=== PATIENT | male | born 1950 | race Caucasian/White ===

== ENCOUNTER 2020-09-12 18:53 | Emergency (ER) | payer MEDICARE ==
[2020-09-12] MEDS ORDERED: IBUPROFEN 600 MG TAB PO STA (19:02)
[2020-09-12] MEDS ORDERED: ACETAMINOPHEN TAB 500 MG TAB PO STA (19:02)
[2020-09-12 20:00] VITALS: RESP 18
--- NOTE | 2020-09-12 20:02 | ED ---
General Adult HPI - General Chief complaint: Weakness Stated complaint: COVID exposure, fatigue Time Seen by Provider: 09/12/20 19:10 Source: patient, RN notes reviewed Mode of arrival: wheelchair Limitations: no limitations - History of Present Illness Initial comments: Patient is a pleasant [age]-year-old male presenting to the emergency Department with complaints of fatigue. Onset of symptoms was approximately 10 days ago. Patient has significant fatigue. A juares has chills and myalgias. Patient has loss of taste and smell. Patient has been exposed to several people who have been tested positive for Crohn of virus, one is hospitalized. Minimal cough. No dyspnea. - Related Data Allergies Allergy/AdvReac Type Severity Reaction Status Date / Time No Known Allergies Allergy Verified 09/12/20 21:43 Review of Systems ROS Statement: Those systems with pertinent positive or pertinent negative responses have been documented in the HPI. ROS Other: All systems not noted in ROS Statement are negative. Constitutional: Reports: fever, chills Eyes: Denies: eye pain ENT: Denies: ear pain Respiratory: Reports: cough. Denies: dyspnea Cardiovascular: Denies: chest pain Endocrine: Reports: fatigue Gastrointestinal: Denies: abdominal pain, vomiting Genitourinary: Denies: dysuria Musculoskeletal: Denies: back pain Skin: Denies: rash Neurological: Denies: weakness Past Medical History Past Medical History: Diabetes Mellitus History of Any Multi-Drug Resistant Organisms: None Reported Past Surgical History: Orthopedic Surgery Additional Past Surgical History / Comment(s): rt bka Past Psychological History: No Psychological Hx Reported Smoking Status: Never smoker Past Alcohol Use History: None Reported Past Drug Use History: None Reported General Exam Limitations: no limitations General appearance: alert, in no apparent distress Head exam: Present: normocephalic Eye exam: Present: normal appearance, PERRL Neck exam: Present: normal inspection Respiratory exam: Present: normal lung sounds bilaterally Cardiovascular Exam: Present: regular rate, normal rhythm GI/Abdominal exam: Present: soft. Absent: tenderness Extremities exam: Present: normal inspection, other (Right lower leg amput ation). Absent: pedal edema, calf tenderness Back exam: Present: normal inspection Neurological exam: Present: alert Psychiatric exam: Present: normal affect, normal mood Skin exam: Present: normal color Course Vital Signs 03/09/21 03/09/21 03/09/21 18:54 19:47 20:53 Temperature 103.1 F H 102.2 F H 101.2 F H Pulse Rate 88 78 60 Respiratory 18 18 18 Rate Blood Pressure 175/73 148/70 117/62 O2 Sat by Pulse 96 97 97 Oximetry - Reevaluation(s) Reevaluation #1: 09/12/20 20:06 Further questioned and believes his onset of symptoms was 12-14 days ago and therefore make some medication a candidate for monoclonal antibodies. EKG Findings - EKG Comments: EKG Findings:: Sinus rhythm with rate of 82. [place] 184. QRS 98. QT 392. QTC 457. Normal axis. Normal QRS. No acute ST change. Medical Decision Making - Medical Decision Making Patient reevaluated and feeling much better following Tylenol Motrin and IV fluids. Patient requesting discharge. Patient updated on results and need for follow-up as well as need to return for difficulty in breathing - Lab Data Result diagrams: 09/12/20 20:11 09/12/20 20:11 Lab Results 09/12/20 09/12/20 09/12/20 Range/Units 20:11 20:11 20:11 WBC 4.1 (3.8-10.6) k/uL RBC 6.31 H (4.30-5.90) m/uL Hgb 12.8 L (13.0-17.5) gm/dL Hct 39.9 (39.0-53.0) % MCV 63.2 L (80.0-100.0) fL MCH 20.3 L (25.0-35.0) pg MCHC 32.2 (31.0-37.0) g/dL RDW 14.2 (11.5-15.5) % Plt Count 123 L (150-450) k/uL MPV 6.9 Neutrophils % 81 % Lymphocytes % 13 % Monocytes % 5 % Eosinophils % 0 % Basophils % 0 % Neutrophils # 3.3 (1.3-7.7) k/uL Lymphocytes # 0.5 L (1.0-4.8) k/uL Monocytes # 0.2 (0-1.0) k/uL Eosinophils # 0.0 (0-0.7) k/uL Basophils # 0.0 (0-0.2) k/uL Hypochromasia Slight Poikilocytosis Slight Microcytosis Marked PT 10.0 (9.0-12.0) sec INR 0.9 (<1.2) APTT 24.5 (22.0-30.0) sec Sodium 132 L (137-145) mmol/L Potassium 4.1 (3.5-5.1) mmol/L Chloride 99 (98-107) mmol/L Carbon Dioxide 25 (22-30) mmol/L Anion Gap 8 mmol/L BUN 34 H (9-20) mg/dL Creatinine 1.49 H (0.66-1.25) mg/dL Est GFR (CKD-EPI)AfAm 55 (>60 ml/min/1.73 sqM) Est GFR (CKD-EPI)NonAf 47 (>60 ml/min/1.73 sqM) Glucose 278 H (74-99) mg/dL Plasma Lactic Acid Navarro (0.7-2.0) mmol/L Calcium 8.3 L (8.4-10.2) mg/dL Magnesium 1.7 (1.6-2.3) mg/dL Total Bilirubin 0.8 (0.2-1.3) mg/dL AST 35 (17-59) U/L ALT 17 (4-49) U/L Alkaline Phosphatase 59 (38-126) U/L Lactate Dehydrogenase 617 (313-618) U/L C-Reactive Protein 29.1 H (<10.0) mg/L Total Protein 6.3 (6.3-8.2) g/dL Albumin 3.4 L (3.5-5.0) g/dL Coronavirus (PCR) (Not Detectd) 09/12/20 09/12/20 Range/Units 20:11 20:28 WBC (3.8-10.6) k/uL RBC (4.30-5.90) m/uL Hgb (13.0-17.5) gm/dL Hct (39.0-53.0) % MCV (80.0-100.0) fL MCH (25.0-35.0) pg MCHC (31.0-37.0) g/dL RDW (11.5-15.5) % Plt Count (150-450) k/uL MPV Neutrophils % % Lymphocytes % % Monocytes % % Eosinophils % % Basophils % % Neutrophils # (1.3-7.7) k/uL Lymphocytes # (1.0-4.8) k/uL Monocytes # (0-1.0) k/uL Eosinophils # (0-0.7) k/uL Basophils # (0-0.2) k/uL Hypochromasia Poikilocytosis Microcytosis PT (9.0-12.0) sec INR (<1.2) APTT (22.0-30.0) sec Sodium (137-145) mmol/L Potassium (3.5-5.1) mmol/L Chloride (98-107) mmol/L Carbon Dioxide (22-30) mmol/L Anion Gap mmol/L BUN (9-20) mg/dL Creatinine (0.66-1.25) mg/dL Est GFR (CKD-EPI)AfAm (>60 ml/min/1.73 sqM) Est GFR (CKD-EPI)NonAf (>60 ml/min/1.73 sqM) Glucose (74-99) mg/dL Plasma Lactic Acid Navarro 1.5 (0.7-2.0) mmol/L Calcium (8.4-10.2) mg/dL Magnesium (1.6-2.3) mg/dL Total Bilirubin (0.2-1.3) mg/dL AST (17-59) U/L ALT (4-49) U/L Alkaline Phosphatase (38-126) U/L Lactate Dehydrogenase (313-618) U/L C-Reactive Protein (<10.0) mg/L Total Protein (6.3-8.2) g/dL Albumin (3.5-5.0) g/dL Coronavirus (PCR) Detected A (Not Detectd) - Radiology Data Radiology results: image reviewed (Chest x-ray with very mild lower interstitial changes) Disposition Clinical Impression: COVID-19 Disposition: HOME SELF-CARE Condition: Stable Instructions (If sedation given, give patient instructions): Upper Respiratory Infection (ED), Fever in Adults (ED) Additional Instructions: Please follow-up with primary care physician in the next day or 2 for recheck. Return for any difficulty breathing, worsening symptoms, weakness or other concerns. [id number] Tylenol or Motrin as needed for fever. [id number] vitamin C, vitamin D, and zinc. Is patient prescribed a controlled substance at d/c from ED?: No Referrals: Junior Murillo MD [Primary Care Provider] - 1-2 days Time of Disposition: 21:48
[2020-09-12 20:21] LABS: Basophils % (A) 0 %; Eosinophils % (A) 0 %; HCT 39.9 % (39.0-53.0); HGB 12.8 gm/dL (13.0-17.5); Hypochromasia Slight; Lymphocytes # (A) 0.5 k/uL (1.0-4.8); Lymphocytes % (A) 13 %; MCH 20.3 pg (25.0-35.0); MCHC 32.2 g/dL (31.0-37.0); MCV 63.2 fL (80.0-100.0); Mean Platelet Volume 6.9; Microcytosis Marked; Monocytes # (A) 0.2 k/uL (0-1.0); Monocytes % (A) 5 %; Neutrophils # (A) 3.3 k/uL (1.3-7.7); Neutrophils % (A) 81 %; Platelet Count 123 k/uL (150-450); Poikilocytosis Slight; RBC 6.31 m/uL (4.30-5.90); RDW 14.2 % (11.5-15.5); WBC 4.1 k/uL (3.8-10.6)
[2020-09-12 20:32] LABS: INR 0.9 (<1.2); Partial Thromboplastin Time 24.5 sec (22.0-30.0)
[2020-09-12 20:35] LABS: Albumin 3.4 g/dL (3.5-5.0); C Reactive Protein 29.1 mg/L (<10.0); Calcium 8.3 mg/dL (8.4-10.2); Magnesium 1.7 mg/dL (1.6-2.3); Potassium 4.1 mmol/L (3.5-5.1); Total Bilirubin 0.8 mg/dL (0.2-1.3); Total Protein 6.3 g/dL (6.3-8.2)
[2020-09-12] MEDS ORDERED: SODIUM CHLORIDE 0.9% 1,000 ML IV STA (20:52)
--- NOTE | 2020-09-12 20:55 | XR ---
EXAMINATION TYPE: XR chest 1V portable DATE OF EXAM: 09/12/2020 COMPARISON: NONE HISTORY: Weakness, SOB and COVID exposure. TECHNIQUE: Single AP portable frontal upright view of the chest is obtained. FINDINGS: There is mild chronic parenchymal changes with faint increased opacities in the lower lung s and periphery of the mid lungs. No pleural effusion or pneumothorax seen bilaterally. The cardiac s ilhouette size is within normal limits with atherosclerotic change aortic knob. Multilevel spurring i n the spine. IMPRESSION: Faint increased opacities in the lower lungs and periphery of the mid lungs consistent with covid-19 infection.
[2020-09-12 21:57] VITALS: BP 114/53; PULSE 54; TEMP 99.7
[2020-09-13 18:05] LABS: Ferritin 493.1 ng/mL (22.0-322.0)
== END 2020-09-12 22:17 | disposition home or self-care (01) ==
LOC: EC 18:53
DX: U07.1 COVID-19 (principal); E11.9 Type 2 diabetes mellitus without complications; K50.90 Crohn's disease, unspecified, without complications; Z89.511 Acquired absence of right leg below knee
CPT/HCPCS: 36415; 71045; 80053; 82728; 83605; 83615; 83735; 84145; 85025; 85610; 85730; 86140; 87040; 87635; 93005; 96360; 99284

== ENCOUNTER 2020-09-17 19:14 | Inpatient (IN) | payer MEDICARE ==
[2020-09-17] MEDS ORDERED: DEXAMETHASONE SOD PHOSPHATE 10 MG/ML 1 ML VIAL IV STA (19:39)
[2020-09-17] MEDS ORDERED: ACETAMINOPHEN TAB 500 MG TAB PO STA (19:42)
--- NOTE | 2020-09-17 19:43 | ED ---
General Adult HPI - General Chief complaint: Shortness of Breath Stated complaint: Diffculty breathing,fever COVID + Time Seen by Provider: 09/17/20 19:32 Source: patient Mode of arrival: ambulatory Limitations: no limitations - History of Present Illness Initial comments: Dictation was produced using [employer] dictation software. please excuse any gr ammatical, word or spelling errors. This patient was cared for during a federal and state declared state of emergency secondary to Covid 19 Chief Complaint: 69-year-old male past mental history of diabetes and bologna interpretation of the right lower extremity presents with shortness breath worsening appetite and generalized weakness History of Present Illness: 69-year-old male he was diagnosed with Covid 5 days ago. Patient has been symptomatic for approximately 16 days. He was seen 5 days ago where he was evaluated for Covid pneumonia. He is discharged stable medical condition. This emergency department for worsening symptoms. He denies any pain complaints. The ROS documented in this emergency department record has been reviewed and confirmed by me. Those systems with pertinent positive or negative responses have been documented in the HPI. All other systems are other negative and/or noncontributory. PHYSICAL EXAM: General Impression: Alert and oriented x3, not in acute distress, pallor HEENT: Normocephalic atraumatic, extra-ocular movements intact, pupils equal and reactive to light bilaterally, mucous membranes moist. Cardiovascular: Heart regular rate and rhythm Chest: Able to complete full sentences, no retractions, no tachypnea Abdomen: abdomen soft, non-tender, non-distended, no organomegaly Musculoskeletal: Pulses present and equal in all extremities, no peripheral edema, reduction. Right lower extremity prosthetic Motor: no focal deficits noted Neurological: CN II-XII grossly intact, no focal motor or sensory deficits noted Skin: Intact with no visualized rashes Psych: Normal affect and mood ED course: 69-year-old male presents with worsening Covid 19 symptoms. Vital signs upon arrival shows 78% on room air, temperature 101.5, rest of vital signs within acceptable limits. Patient was immediately moved to room 3. He was placed on noninvasive ventilation. Oxygen levels improved. Patient given Decadron. Patient given 1 g of Tylenol. EKG interpretation: Ventricular rate 83, normal sinus rhythm, MT interval 154, QRS 90, QTC 495. No MT prolongation, no QTC prolongation, no ST or T-wave changes noted. EKG compared to 09/12/2020 showing no changes. Overall, this EKG is unremarkable Patient is extremely elevated d-dimer. Given patient's GFR rate he is not a candidate for CT angio the chest per crown and bridge dental lab technician. Nonetheless there is suspicion of underlying pulmonary embolus, though less likely given that patient is not tachycardic and not having any pleuritic chest pain. Patient started on 1 mg/kg subcu every 12h enoxaparin dosing. Presentation most of his hypoxia is likely secondary to Covid 19. Patient reevaluated at bedside approximately 30 minutes after the initiation of noninvasive ventilation with stable oxygen's in the mid to high 90%s. He is resting comfortably and in no acute distress. Given the patient has covid 19 with hypoxic respiratory failure we would be very judicious with fluid administration. At this point less likely to be bacterial infection unlikely to be sepsis. CBC shows no leukocytosis. Coag panel is unremarkable. D-dimer is severely elevated at 32.24. Arterial blood gas shows peaches 7.49 with a pCO2 of 28 and a pO2 of 64 and 50% FiO2. Metabolic panel shows increased G4 compared to 5 days. Lactic acidosis 2.7 likely from hypoxia. Elevated inflammatory markers. Case is discussed with Dr. Batres who feels the patient is not a candidate for intensive care unit. He is supposedly with good oxygen saturations on minimal settings with the BiPAP. He is resting comfortably. Patient is outside the window for remdesivir administration. Pulmonology recommends administration of convalescent plasma. Patient be admitted to stepdown unit. Case discussed with Physician Dr. Sears Who Is Willing to Accept Patients Care. - Related Data Home Medications Medication Instructions Recorded Confirmed INSULIN ASPART (NovoLOG) [NovoLOG 4 unit SQ AC-BRKFST 09/12/20 09/17/20 (formulary)] INSULIN ASPART (NovoLOG) [NovoLOG 5 unit SQ AC-BID 09/12/20 09/17/20 (formulary)] Insulin Glargine [Lantus] 15 unit SQ HS 09/12/20 09/17/20 Allergies Allergy/AdvReac Type Severity Reaction Status Date / Time No Known Allergies Allergy Verified 09/17/20 19:46 Review of Systems ROS Statement: Those systems with pertinent positive or pertinent negative responses have been documented in the HPI. ROS Other: All systems not noted in ROS Statement are negative. Past Medical History Past Medical History: Diabetes Mellitus History of Any Multi-Drug Resistant Organisms: None Reported Past Surgical History: Orthopedic Surgery Additional Past Surgical History / Comment(s): rt bka Past Psychological History: No Psychological Hx Reported Smoking Status: Never smoker Past Alcohol Use History: None Reported Past Drug Use History: None Reported General Exam Limitations: no limitations Course Vital Signs 09/17/20 09/17/20 09/17/20 19:25 19:51 20:38 Temperature 101.5 F H 98.9 F Pulse Rate 89 90 84 Respiratory 20 22 18 Rate Blood Pressure 135/73 165/79 142/70 O2 Sat by Pulse 78 L 97 98 Oximetry Medical Decision Making - Lab Data Result diagrams: 09/17/20 19:53 09/17/20 19:53 Lab Results 09/17/20 09/17/20 09/17/20 Range/Units 19:53 19:53 19:53 WBC 4.5 (3.8-10.6) k/uL RBC 6.62 H (4.30-5.90) m/uL Hgb 13.0 (13.0-17.5) gm/dL Hct 41.5 (39.0-53.0) % MCV 62.7 L (80.0-100.0) fL MCH 19.6 L (25.0-35.0) pg MCHC 31.3 (31.0-37.0) g/dL RDW 14.5 (11.5-15.5) % Plt Count 212 (150-450) k/uL MPV 8.5 Neutrophils % 85 % Lymphocytes % 9 % Monocytes % 3 % Eosinophils % 0 % Basophils % 1 % Neutrophils # 3.8 (1.3-7.7) k/uL Lymphocytes # 0.4 L (1.0-4.8) k/uL Monocytes # 0.1 (0-1.0) k/uL Eosinophils # 0.0 (0-0.7) k/uL Basophils # 0.0 (0-0.2) k/uL Hypochromasia Moderate Poikilocytosis Slight Microcytosis Marked PT 10.1 (9.0-12.0) sec INR 0.9 (<1.2) APTT 23.8 (22.0-30.0) sec D-Dimer 32.24 H (<0.60) mg/L FEU Sample Site ABG pH (7.35-7.45) ABG pCO2 (35-45) mmHg ABG pO2 (83-108) mmHg ABG HCO3 (21-25) mmol/L ABG Total CO2 (19-24) mmol/L ABG O2 Saturation (94-97) % ABG Base Excess mmol/L Дмитрий Test FiO2 % Sodium 135 L (137-145) mmol/L Potassium 4.3 (3.5-5.1) mmol/L Chloride 100 (98-107) mmol/L Carbon Dioxide 23 (22-30) mmol/L Anion Gap 12 mmol/L BUN 56 H (9-20) mg/dL Creatinine 1.77 H (0.66-1.25) mg/dL Est GFR (CKD-EPI)AfAm 44 (>60 ml/min/1.73 sqM) Est GFR (CKD-EPI)NonAf 38 (>60 ml/min/1.73 sqM) Glucose 454 H (74-99) mg/dL Plasma Lactic Acid Navarro (0.7-2.0) mmol/L Calcium 8.7 (8.4-10.2) mg/dL Magnesium 1.8 (1.6-2.3) mg/dL Total Bilirubin 0.9 (0.2-1.3) mg/dL AST 55 (17-59) U/L ALT 23 (4-49) U/L Alkaline Phosphatase 93 (38-126) U/L Lactate Dehydrogenase 2084 H (313-618) U/L C-Reactive Protein 66.4 H (<10.0) mg/L Total Protein 6.5 (6.3-8.2) g/dL Albumin 3.3 L (3.5-5.0) g/dL 09/17/20 09/17/20 Range/Units 19:53 20:47 WBC (3.8-10.6) k/uL RBC (4.30-5.90) m/uL Hgb (13.0-17.5) gm/dL Hct (39.0-53.0) % MCV (80.0-100.0) fL MCH (25.0-35.0) pg MCHC (31.0-37.0) g/dL RDW (11.5-15.5) % Plt Count (150-450) k/uL MPV Neutrophils % % Lymphocytes % % Monocytes % % Eosinophils % % Basophils % % Neutrophils # (1.3-7.7) k/uL Lymphocytes # (1.0-4.8) k/uL Monocytes # (0-1.0) k/uL Eosinophils # (0-0.7) k/uL Basophils # (0-0.2) k/uL Hypochromasia Poikilocytosis Microcytosis PT (9.0-12.0) sec INR (<1.2) APTT (22.0-30.0) sec D-Dimer (<0.60) mg/L FEU Sample Site rbrach ABG pH 7.49 H (7.35-7.45) ABG pCO2 28 L (35-45) mmHg ABG pO2 64 L (83-108) mmHg ABG HCO3 22 (21-25) mmol/L ABG Total CO2 23 (19-24) mmol/L ABG O2 Saturation 92.4 L (94-97) % ABG Base Excess -1.7 mmol/L Дмитрий Test Yes FiO2 50 % Sodium (137-145) mmol/L Potassium (3.5-5.1) mmol/L Chloride (98-107) mmol/L Carbon Dioxide (22-30) mmol/L Anion Gap mmol/L BUN (9-20) mg/dL Creatinine (0.66-1.25) mg/dL Est GFR (CKD-EPI)AfAm (>60 ml/min/1.73 sqM) Est GFR (CKD-EPI)NonAf (>60 ml/min/1.73 sqM) Glucose (74-99) mg/dL Plasma Lactic Acid Navarro 3.7 H* (0.7-2.0) mmol/L Calcium (8.4-10.2) mg/dL Magnesium (1.6-2.3) mg/dL Total Bilirubin (0.2-1.3) mg/dL AST (17-59) U/L ALT (4-49) U/L Alkaline Phosphatase (38-126) U/L Lactate Dehydrogenase (313-618) U/L C-Reactive Protein (<10.0) mg/L Total Protein (6.3-8.2) g/dL Albumin (3.5-5.0) g/dL Critical Care Time Critical Care Time: Yes Total Critical Care Time: 33 Disposition Clinical Impression: COVID-19, Hypoxia Disposition: ADMITTED IP TO THIS [facility] Condition: Critical Referrals: Junior Murillo MD [Primary Care Provider] - 1-2 days Decision Time: 21:05
[2020-09-17] MEDS ORDERED: SODIUM CHLORIDE 0.9% 1,000 ML IV STA (20:09)
[2020-09-17 20:18] LABS: Basophils % (A) 1 %; Eosinophils % (A) 0 %; HCT 41.5 % (39.0-53.0); Hypochromasia Moderate; Lymphocytes # (A) 0.4 k/uL (1.0-4.8); Lymphocytes % (A) 9 %; MCH 19.6 pg (25.0-35.0); MCHC 31.3 g/dL (31.0-37.0); MCV 62.7 fL (80.0-100.0); Mean Platelet Volume 8.5; Microcytosis Marked; Monocytes # (A) 0.1 k/uL (0-1.0); Monocytes % (A) 3 %; Neutrophils # (A) 3.8 k/uL (1.3-7.7); Neutrophils % (A) 85 %; Platelet Count 212 k/uL (150-450); Poikilocytosis Slight; RBC 6.62 m/uL (4.30-5.90); RDW 14.5 % (11.5-15.5); WBC 4.5 k/uL (3.8-10.6)
--- NOTE | 2020-09-17 20:26 | XR ---
EXAMINATION TYPE: XR chest 1V portable DATE OF EXAM: 09/17/2020 COMPARISON: 09/12/2020 HISTORY: Fever. Short of breath. TECHNIQUE: FINDINGS: There is bilateral patchy interstitial pulmonary infiltrates. Heart size is normal. There i s no gross heart failure. There are chest leads. IMPRESSION: Increasing bilateral interstitial and airspace pneumonia compared to last exam.
[2020-09-17 20:34] LABS: Albumin 3.3 g/dL (3.5-5.0); C Reactive Protein 66.4 mg/L (<10.0); Calcium 8.7 mg/dL (8.4-10.2); Magnesium 1.8 mg/dL (1.6-2.3); Potassium 4.3 mmol/L (3.5-5.1); Total Bilirubin 0.9 mg/dL (0.2-1.3); Total Protein 6.5 g/dL (6.3-8.2)
[2020-09-17 20:40] LABS: INR 0.9 (<1.2); Partial Thromboplastin Time 23.8 sec (22.0-30.0); Prothrombin Time 10.1 sec (9.0-12.0)
[2020-09-17 20:43] LABS: D-Dimer 32.24 mg/L FEU (<0.60)
[2020-09-17 20:53] LABS: ABG Base Excess -1.7 mmol/L; ABG HCO3 22 mmol/L (21-25); ABG Oxygen Saturation 92.4 % (94-97); ABG PCO2 28 mmHg (35-45); ABG PH 7.49 (7.35-7.45); ABG PO2 64 mmHg (83-108); ABG TCO2 23 mmol/L (19-24); Allen Test Performed? Yes
[2020-09-17] MEDS ORDERED: NALOXONE 0.4 MG/ML 1 ML VIAL IV PRN (21:05)
[2020-09-17] MEDS ORDERED: ACETAMINOPHEN TAB 325 MG TAB PO PRN (21:22)
[2020-09-17 22:15] LABS: Glucose,Whole Blood 427 mg/dL (75-99)
[2020-09-17] MEDS: INSULIN DETEMIR (LEVEMIR) 100 UNIT/ML SYR SQ SCH (23:10)
[2020-09-17] MEDS: INSULIN ASPART (NovoLOG) 100 UNIT/ML VIAL SQ SCH (23:10)
[2020-09-18] MEDS: ENOXAPARIN 80 MG/0.8 ML SYRINGE SQ SCH ×2 (00:02→08:55)
[2020-09-18 00:53] LABS: Glucose,Whole Blood 353 mg/dL (75-99)
--- NOTE | 2020-09-18 02:10 | P.HPIM ---
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 he was at his baseline status of health up until two weeks ago , when he started feeling tired and sick , he reports some sore throat after sick contact with confirmed COVID patient (who is currently doing well however his mother is sick with covid in the hospital ) then started having some loose bowel movements, loss of taste sensation , and some mild cough , he denies any fever, chills, body aches, shortness fo breath, however, since his confirmed COVID test about 5 days ago, he has been using a wheelchair , due to extreme fatigue , despite no SOB, and just a mild non productive cough. he comes in today , due to worsening symptoms of fatigue for evaluation . he denies any recent travel or hospitalization . in the ED, he was found to be hypoxic with oxygen sat 78%, elevated acute inflammatory markers. he was placed on bipap and admitted for further care he currently sitting in bed, comforable and in good spirit Review of Systems Pertinent positives as noted in HPI. All other systems were reviewed and are negative Past Medical History Past Medical History: Diabetes Mellitus History of Any Multi-Drug Resistant Organisms: None Reported Past Surgical History: Orthopedic Surgery Additional Past Surgical History / Comment(s): rt bka Past Anesthesia/Blood Transfusion Reactions: No Reported Reaction Past Psychological History: No Psychological Hx Reported Smoking Status: Never smoker Past Alcohol Use History: None Reported Past Drug Use History: None Reported - Past Family History family Family Medical History: No Reported History Medications and Allergies Home Medications Medication Instructions Recorded Confirmed Type INSULIN ASPART (NovoLOG) [NovoLOG 4 unit SQ AC-BRKFST 09/12/20 09/17/20 History (formulary)] INSULIN ASPART (NovoLOG) [NovoLOG 5 unit SQ AC-BID 09/12/20 09/17/20 History (formulary)] Insulin Glargine [Lantus] 15 unit SQ HS 09/12/20 09/17/20 History Allergies Allergy/AdvReac Type Severity Reaction Status Date / Time No Known Allergies Allergy Verified 09/17/20 19:46 Physical Exam Vitals: Vital Signs Temp Pulse Pulse Resp BP BP Pulse Ox 09/18/20 00:11 95 09/17/20 21:16 80 18 130/72 100 09/17/20 21:13 99 F 79 18 154/66 100 09/17/20 20:38 98.9 F 84 18 142/70 98 09/17/20 19:51 90 22 165/79 97 09/17/20 19:25 101.5 F H 89 20 135/73 78 L Intake and Output 09/17/20 09/17/20 09/18/20 14:59 22:59 06:59 Intake Total 150 Balance 150 Intake: Oral 150 Other: Weight 87.09 kg Constitutional: No acute distress, conversant, pleasant Eyes: Anicteric sclerae, moist conjunctiva, Pupils equal round reactive to light ENMT: NC/AT Oropharynx clear, no erythema, or exudates Neck: Supple, FROM, no masses, or JVD No carotid bruits No thyromegaly Lungs: Clear to auscultation Clear to percussion Normal respiratory effort, no accessory muscle use Cardiovascular: Heart regular in rate and rhythm, No murmurs, gallops, or rubs No peripheral edema Abdominal: Soft Nontender, no guarding, rebound or rigidity Abdomen moving with respiration Normoactive bowel sounds No hepatomegaly, No splenomegaly No palpable mass No abdominal wall hernia noted Skin: Normal temperature, tone, texture, turgor No induration No subcutaneous nodules No rash, lesions No ulcers Extremities: right BKA with prosthetic limb No digital cyanosis No clubbing Pedal pulses palpabable left foot Radial pulses intact and symmetrical No calf tenderness Psychiatric: Alert and oriented to person, place and time Appropriate affect fair judgement Neuro Muscles Strength 5/5 in all 4 extremities Sensation to light touch grossly present throughout Cranial nerves II-XII grossly intact No focal sensory deficits Lymphatics: no palpable cervical or supraclavicular , or inguinal lymph nodes Results CBC & Chem 7: 09/17/20 19:53 09/17/20 19:53 Labs: Abnormal Lab Results - Last 24 Hours (Table) 09/17/20 09/17/20 09/17/20 Range/Units 19:53 19:53 19:53 RBC 6.62 H (4.30-5.90) m/uL MCV 62.7 L (80.0-100.0) fL MCH 19.6 L (25.0-35.0) pg Lymphocytes # 0.4 L (1.0-4.8) k/uL D-Dimer 32.24 H (<0.60) mg/L FEU ABG pH (7.35-7.45) ABG pCO2 (35-45) mmHg ABG pO2 (83-108) mmHg ABG O2 Saturation (94-97) % Sodium 135 L (137-145) mmol/L BUN 56 H (9-20) mg/dL Creatinine 1.77 H (0.66-1.25) mg/dL Glucose 454 H (74-99) mg/dL POC Glucose (mg/dL) (75-99) mg/dL Plasma Lactic Acid Navarro (0.7-2.0) mmol/L Lactate Dehydrogenase 2084 H (313-618) U/L Troponin I (0.000-0.034) ng/mL C-Reactive Protein 66.4 H (<10.0) mg/L Albumin 3.3 L (3.5-5.0) g/dL 09/17/20 09/17/20 09/17/20 Range/Units 19:53 20:47 21:10 RBC (4.30-5.90) m/uL MCV (80.0-100.0) fL MCH (25.0-35.0) pg Lymphocytes # (1.0-4.8) k/uL D-Dimer (<0.60) mg/L FEU ABG pH 7.49 H (7.35-7.45) ABG pCO2 28 L (35-45) mmHg ABG pO2 64 L (83-108) mmHg ABG O2 Saturation 92.4 L (94-97) % Sodium (137-145) mmol/L BUN (9-20) mg/dL Creatinine (0.66-1.25) mg/dL Glucose (74-99) mg/dL POC Glucose (mg/dL) (75-99) mg/dL Plasma Lactic Acid Navarro 3.7 H* (0.7-2.0) mmol/L Lactate Dehydrogenase (313-618) U/L Troponin I 0.146 H* (0.000-0.034) ng/mL C-Reactive Protein (<10.0) mg/L Albumin (3.5-5.0) g/dL 09/17/20 09/17/20 09/18/20 Range/Units 22:12 22:58 00:52 RBC (4.30-5.90) m/uL MCV (80.0-100.0) fL MCH (25.0-35.0) pg Lymphocytes # (1.0-4.8) k/uL D-Dimer (<0.60) mg/L FEU ABG pH (7.35-7.45) ABG pCO2 (35-45) mmHg ABG pO2 (83-108) mmHg ABG O2 Saturation (94-97) % Sodium (137-145) mmol/L BUN (9-20) mg/dL Creatinine (0.66-1.25) mg/dL Glucose (74-99) mg/dL POC Glucose (mg/dL) 427 H 353 H (75-99) mg/dL Plasma Lactic Acid Navarro 2.1 H* (0.7-2.0) mmol/L Lactate Dehydrogenase (313-618) U/L Troponin I (0.000-0.034) ng/mL C-Reactive Protein (<10.0) mg/L Albumin (3.5-5.0) g/dL Thrombosis Risk Factor Assmnt - Choose All That Apply Any of the Below Risk Factors Present?: No Other Risk Factors: Yes Each Risk Factor Represents 2 Points: Age 61-74 years Other congenital or acquired thrombophilia - If yes, enter type in comment: No Thrombosis Risk Factor Assessment Total Risk Factor Score: 2 Thrombosis Risk Factor Assessment Level: Low Risk Assessment and Plan Assessment: acute hypoxiic respiratory failure COIVD pneumonitis AARON DM insulin dependant , hyperglycemia plan supplemental oxygen as needed dexamethasone 6 mg daily for 10 days convalescent plasma pulmonary consult pain and fever control with tylenol IVF hydration gentle basal insulin and insulin sliding scale monitor renal function lovenox full anticoagulation elevated inflammatory markers elevated trops , no chest pain ,most likely 2/2 COVID EKG no acute ST changes CODE STATUS:full code DVT prophylaxis: on lovenox Discussed with: Patient, ER, RN Anticipated length of stay > than [address]: home A total of 75 minutes was spent on the care of this complex patient more than 50% of the time was spent in counseling and care coordination.
[2020-09-18 06:03] LABS: Glucose,Whole Blood 314 mg/dL (75-99)
[2020-09-18] MEDS: INSULIN ASPART (NovoLOG) 100 UNIT/ML VIAL SQ SCH ×4 (06:46→20:56)
[2020-09-18] MEDS: dexAMETHasone 2 MG TAB PO SCH (08:55)
--- NOTE | 2020-09-18 09:12 | P.PN ---
Subjective Progress Note Date: 09/18/20 No new complaints today. Patient has two pulse oximeters, with one reading 98%, the other reading 74%; he is in NAD, not dyspneic. Objective - Vital Signs Vital signs: Vital Signs Temp 97.8 F 09/18/20 08:24 Pulse 74 09/18/20 08:24 Resp 18 09/18/20 08:24 BP 157/88 09/18/20 08:24 Pulse Ox 93 L 09/18/20 08:24 Intake & Output 09/17/20 09/18/20 09/18/20 18:59 06:59 18:59 Intake Total 150 794 Output Total 200 Balance -50 794 Weight 87 kg Intake: Oral 150 600 Blood Product 0 194 Ffp Pher Conval High [address] Unit [id number] Output: Urine 200 - Exam Gen: awake, alert HEENT: normocephalic, atraumatic, good hearing acuity, moist mucous membranes Resp: good air exchange, breathing comfortably with no accessory muscle use, bilateral crackles in the posterior bases abdomen test CVS: good distal perfusion x 4,, regular rate and rhythm without murmurs GI: soft, NTTP, ND, normal breath sounds : no SPT, no CVAT, triana catheter not present MSK: no pitting edema, no clubbing Neuro: non-focal, moving all extremities Psych: cooperative, euthymic mood - Labs CBC & Chem 7: 09/17/20 19:53 09/17/20 19:53 Labs: Abnormal Lab Results - Last 24 Hours (Table) 09/17/20 09/17/20 09/17/20 Range/Units 19:53 19:53 19:53 RBC 6.62 H (4.30-5.90) m/uL MCV 62.7 L (80.0-100.0) fL MCH 19.6 L (25.0-35.0) pg Lymphocytes # 0.4 L (1.0-4.8) k/uL D-Dimer 32.24 H (<0.60) mg/L FEU ABG pH (7.35-7.45) ABG pCO2 (35-45) mmHg ABG pO2 (83-108) mmHg ABG O2 Saturation (94-97) % Sodium 135 L (137-145) mmol/L BUN 56 H (9-20) mg/dL Creatinine 1.77 H (0.66-1.25) mg/dL Glucose 454 H (74-99) mg/dL POC Glucose (mg/dL) (75-99) mg/dL Plasma Lactic Acid Navarro (0.7-2.0) mmol/L Lactate Dehydrogenase 2084 H (313-618) U/L Troponin I (0.000-0.034) ng/mL C-Reactive Protein 66.4 H (<10.0) mg/L Albumin 3.3 L (3.5-5.0) g/dL 09/17/20 09/17/20 09/17/20 Range/Units 19:53 20:47 21:10 RBC (4.30-5.90) m/uL MCV (80.0-100.0) fL MCH (25.0-35.0) pg Lymphocytes # (1.0-4.8) k/uL D-Dimer (<0.60) mg/L FEU ABG pH 7.49 H (7.35-7.45) ABG pCO2 28 L (35-45) mmHg ABG pO2 64 L (83-108) mmHg ABG O2 Saturation 92.4 L (94-97) % Sodium (137-145) mmol/L BUN (9-20) mg/dL Creatinine (0.66-1.25) mg/dL Glucose (74-99) mg/dL POC Glucose (mg/dL) (75-99) mg/dL Plasma Lactic Acid Navarro 3.7 H* (0.7-2.0) mmol/L Lactate Dehydrogenase (313-618) U/L Troponin I 0.146 H* (0.000-0.034) ng/mL C-Reactive Protein (<10.0) mg/L Albumin (3.5-5.0) g/dL 09/17/20 09/17/20 09/18/20 Range/Units 22:12 22:58 00:52 RBC (4.30-5.90) m/uL MCV (80.0-100.0) fL MCH (25.0-35.0) pg Lymphocytes # (1.0-4.8) k/uL D-Dimer (<0.60) mg/L FEU ABG pH (7.35-7.45) ABG pCO2 (35-45) mmHg ABG pO2 (83-108) mmHg ABG O2 Saturation (94-97) % Sodium (137-145) mmol/L BUN (9-20) mg/dL Creatinine (0.66-1.25) mg/dL Glucose (74-99) mg/dL POC Glucose (mg/dL) 427 H 353 H (75-99) mg/dL Plasma Lactic Acid Navarro 2.1 H* (0.7-2.0) mmol/L Lactate Dehydrogenase (313-618) U/L Troponin I (0.000-0.034) ng/mL C-Reactive Protein (<10.0) mg/L Albumin (3.5-5.0) g/dL 09/18/20 09/18/20 Range/Units 02:19 06:01 RBC (4.30-5.90) m/uL MCV (80.0-100.0) fL MCH (25.0-35.0) pg Lymphocytes # (1.0-4.8) k/uL D-Dimer (<0.60) mg/L FEU ABG pH (7.35-7.45) ABG pCO2 (35-45) mmHg ABG pO2 (83-108) mmHg ABG O2 Saturation (94-97) % Sodium (137-145) mmol/L BUN (9-20) mg/dL Creatinine (0.66-1.25) mg/dL Glucose (74-99) mg/dL POC Glucose (mg/dL) 314 H (75-99) mg/dL Plasma Lactic Acid Navarro 2.5 H* (0.7-2.0) mmol/L Lactate Dehydrogenase (313-618) U/L Troponin I (0.000-0.034) ng/mL C-Reactive Protein (<10.0) mg/L Albumin (3.5-5.0) g/dL Assessment and Plan Assessment: acute hypoxiic respiratory failure COIVD pneumonitis AARON DM insulin dependant , hyperglycemia plan supplemental oxygen as needed dexamethasone 6 mg daily for 10 days convalescent plasma pulmonary consult pain and fever control with tylenol IVF hydration gentle basal insulin and insulin sliding scale monitor renal function lovenox full anticoagulation elevated inflammatory markers elevated trops , no chest pain, most likely 2/2 COVID EKG no acute ST changes CODE STATUS:full code DVT prophylaxis: on lovenox Discussed with: Patient, ER, RN Anticipated length of stay > than [address]: home
[2020-09-18 10:05] LABS: Ferritin 1679.6 ng/mL (22.0-322.0)
[2020-09-18 12:01] LABS: Glucose,Whole Blood 308 mg/dL (75-99)
[2020-09-18 14:35] VITALS: BMI 24.6
--- NOTE | 2020-09-18 14:49 | P.CNPUL ---
History of Present Illness Consult date: 09/18/20 Requesting physician: Edgar Sears Reason for consult: dyspnea, cough, hypoxemia, pneumonia, abnormal CXR/CT Chief complaint: COVID 19 pneumonia History of present illness: 69-year-old male, who presented to the emergency department, on 09/17/2020. The patient apparently came in with complaints of shortness of breath, fever, and recently being tested positive for COVID 19. The patient hasn't been feeling well for a couple weeks now, and about 5 or 6 days ago, was tested here at this hospital and was positive for coronavirus. The patient was not having major issues at that time, and therefore was discharged home. More recently, over the last couple of days, he states that he is becoming more more symptomatic. He had muscle aches, poor appetite, loss of taste, just feeling fatigued, and shortness of breath on exertion. No fever or chills. He wasn't coughing up any phlegm. His cough is mostly nonproductive. He denied any chest pain or chest discomfort. There is no nausea, vomiting, diarrhea, or abdominal pain. A chest x-ray was done and showed bilateral infiltrates, and, his white count was 4.5, hemoglobin 13, hematocrit 41.5, and platelet count 312,000. D-dimer was 32.24, PaO2 was 64, with a PaCO2 of 28 and a pH is 7.49. Sodium was 135, potassium 4.3, chlorides 100, CO2 23, anion gap 12, BUN 56, and creatinine 1.77. Lactic acid was 2.1, LDH was 2084, and C-reactive protein was 66.4. Pro-calcitonin was 0.74. The patient is a lifelong nonsmoker, and his only major medical problem was that of diabetes. He is status post right BKA. Review of Systems REVIEW OF SYSTEMS: CONSTITUTIONAL: Fatigue and weakness. NEUROLOGIC: [ Negative.] HEENT: [ Negative.] CARDIAC: [Negative.] PULMONARY: Shortness of breath on exertion and dry nonproductive cough. GI: Decreased appetite. : [Negative.] RHEUMATOLOGIC: Muscle and joint soreness. IMMUNOLOGIC: [ Negative.] ENDOCRINE: [Negative. ] DERMATOLOGIC: [Negative.] Past Medical History Past Medical History: Diabetes Mellitus History of Any Multi-Drug Resistant Organisms: None Reported Past Surgical History: Orthopedic Surgery Additional Past Surgical History / Comment(s): rt bka Past Anesthesia/Blood Transfusion Reactions: No Reported Reaction Past Psychological History: No Psychological Hx Reported Smoking Status: Never smoker Past Alcohol Use History: None Reported Past Drug Use History: None Reported - Past Family History family Family Medical History: No Reported History Medications and Allergies Home Medications Medication Instructions Recorded Confirmed Type INSULIN ASPART (NovoLOG) [NovoLOG 4 unit SQ AC-BRKFST 09/12/20 09/17/20 History (formulary)] INSULIN ASPART (NovoLOG) [NovoLOG 5 unit SQ AC-BID 09/12/20 09/17/20 History (formulary)] Insulin Glargine [Lantus] 15 unit SQ HS 09/12/20 09/17/20 History Allergies Allergy/AdvReac Type Severity Reaction Status Date / Time No Known Allergies Allergy Verified 09/17/20 19:46 Physical Exam Osteopathic Statement: *. No significant issues noted on an osteopathic structural exam other than those noted in the History and Physical/Consult. Vitals: Vital Signs Temp Pulse Pulse Resp BP BP Pulse Ox 09/18/20 12:05 67 18 154/83 91 L 09/18/20 08:24 97.8 F 74 18 157/88 93 L 09/18/20 07:14 97.9 F 75 18 153/78 94 L 09/18/20 06:44 97.8 F 73 18 159/85 92 L 09/18/20 06:34 97.6 F 71 18 152/82 94 L 09/18/20 04:29 93 L 09/18/20 04:00 69 18 150/82 93 L 09/18/20 02:00 76 18 09/18/20 00:11 95 09/18/20 00:00 98.5 F 76 18 152/81 95 09/17/20 21:16 80 18 130/72 100 09/17/20 21:13 99 F 79 18 154/66 100 09/17/20 20:38 98.9 F 84 18 142/70 98 09/17/20 19:51 90 22 165/79 97 09/17/20 19:25 101.5 F H 89 20 135/73 78 L Intake and Output 09/17/20 09/18/20 09/18/20 22:59 06:59 14:59 Intake Total 150 0 794 Output Total 200 Balance 150 -200 794 Intake: Oral 150 600 Blood Product 0 194 Ffp Pher Conval High [address] Unit [id number] Output: Urine 200 Other: # Voids 1 # Bowel Movements 1 Weight 87.09 kg 87 kg 87 kg No acute distress, oriented 3. Nasal O2 in place at 13 L/m. Patient without apparent respiratory distress, audible wheezing, use of accessory muscles, or conversational dyspnea. HEENT examination is grossly unremarkable. Mucous membranes are moist. No oral lesions. Nasal O2 noted. Neck supple. Full range of motion. No adenopathy thyromegaly or neck vein distention. Cardiovascular examination reveals regular rhythm rate. S1-S2 normal. No S3 or S4. No discernible murmur noted. Heart rate 67 bpm. Lungs reveal bilateral expiratory rhonchi and some minimal basilar crackles. No wheezes. Breath sounds equal bilaterally. Abdomen soft bowel sounds are heard. No masses or tenderness. Extremities are intact. No cyanosis clubbing or edema. Right below the knee amputation. Skin is without rash or lesion. Neurologic examination is brief but nonfocal. Results - Laboratory Findings CBC and BMP: 09/17/20 19:53 09/17/20 19:53 ABG ABG pH 7.49 (7.35-7.45) H 09/17/20 20:47 ABG pCO2 28 mmHg (35-45) L 09/17/20 20:47 ABG pO2 64 mmHg (83-108) L 09/17/20 20:47 ABG O2 Saturation 92.4 % (94-97) L 09/17/20 20:47 PT/INR, D-dimer PT 10.1 sec (9.0-12.0) 09/17/20 19:53 INR 0.9 (<1.2) 09/17/20 19:53 D-Dimer 32.24 mg/L FEU (<0.60) H 09/17/20 19:53 Abnormal lab findings: Abnormal Labs 09/17/20 09/17/20 09/17/20 19:53 19:53 19:53 RBC 6.62 H MCV 62.7 L MCH 19.6 L Lymphocytes # 0.4 L D-Dimer 32.24 H ABG pH ABG pCO2 ABG pO2 ABG O2 Saturation Sodium 135 L BUN 56 H Creatinine 1.77 H Glucose 454 H POC Glucose (mg/dL) Plasma Lactic Acid Navarro Ferritin 1679.6 H Lactate Dehydrogenase 2084 H Troponin I C-Reactive Protein 66.4 H Albumin 3.3 L Procalcitonin 09/17/20 09/17/20 09/17/20 19:53 19:53 20:47 RBC MCV MCH Lymphocytes # D-Dimer ABG pH 7.49 H ABG pCO2 28 L ABG pO2 64 L ABG O2 Saturation 92.4 L Sodium BUN Creatinine Glucose POC Glucose (mg/dL) Plasma Lactic Acid Navarro 3.7 H* Ferritin Lactate Dehydrogenase Troponin I C-Reactive Protein Albumin Procalcitonin 0.74 H 09/17/20 09/17/20 09/17/20 21:10 22:12 22:58 RBC MCV MCH Lymphocytes # D-Dimer ABG pH ABG pCO2 ABG pO2 ABG O2 Saturation Sodium BUN Creatinine Glucose POC Glucose (mg/dL) 427 H Plasma Lactic Acid Navarro 2.1 H* Ferritin Lactate Dehydrogenase Troponin I 0.146 H* C-Reactive Protein Albumin Procalcitonin 09/18/20 09/18/20 09/18/20 00:52 02:19 06:01 RBC MCV MCH Lymphocytes # D-Dimer ABG pH ABG pCO2 ABG pO2 ABG O2 Saturation Sodium BUN Creatinine Glucose POC Glucose (mg/dL) 353 H 314 H Plasma Lactic Acid Navarro 2.5 H* Ferritin Lactate Dehydrogenase Troponin I C-Reactive Protein Albumin Procalcitonin 09/18/20 11:58 RBC MCV MCH Lymphocytes # D-Dimer ABG pH ABG pCO2 ABG pO2 ABG O2 Saturation Sodium BUN Creatinine Glucose POC Glucose (mg/dL) 308 H Plasma Lactic Acid Navarro Ferritin Lactate Dehydrogenase Troponin I C-Reactive Protein Albumin Procalcitonin - Diagnostic Findings Chest x-ray: image reviewed Assessment and Plan Assessment: Acute hypoxemic respiratory failure secondary to COVID 19 pneumonia. History of diabetes mellitus. Right below the knee amputation. Lifelong nonsmoker. Plan: Plan dated 09/18/2020. The patient actually looks pretty good. He is beyond the window for remdesivir, CP and tocilizumab. The patient is given an albuterol inhaler, vitamin C 1000 mg daily, vitamin D3, 5000 IUs daily, Decadron 6 mg a day, and zinc 220 mg daily. In addition, the patient is Lovenox, 40 mg subcu twice a day. Additional recommendations and suggestions are forthcoming. We'll continue to follow the patient very closely make recommendations were appropriate. All his labs, chest x-rays, and medications are reviewed. We did discuss the patient at the bedside with the nurse. Additional recommendations and suggestions are forthcoming. Time with Patient: Greater than 30
[2020-09-18 17:06] LABS: Glucose,Whole Blood 311 mg/dL (75-99)
[2020-09-18 20:43] LABS: Glucose,Whole Blood 272 mg/dL (75-99)
[2020-09-18] MEDS: ENOXAPARIN 40 MG/0.4 ML SYRINGE SQ SCH (20:56)
[2020-09-18] MEDS: INSULIN DETEMIR (LEVEMIR) 100 UNIT/ML SYR SQ SCH (20:56)
[2020-09-19 06:46] LABS: Glucose,Whole Blood 150 mg/dL (75-99)
[2020-09-19] MEDS: INSULIN ASPART (NovoLOG) 100 UNIT/ML VIAL SQ SCH ×4 (07:03→21:11)
[2020-09-19 07:04] LABS: HCT 37.5 % (39.0-53.0); HGB 11.9 gm/dL (13.0-17.5); Hypochromasia Slight; MCH 19.6 pg (25.0-35.0); MCHC 31.7 g/dL (31.0-37.0); MCV 61.8 fL (80.0-100.0); Mean Platelet Volume 6.7; Microcytosis Marked; Platelet Count 181 k/uL (150-450); Poikilocytosis Slight; RBC 6.07 m/uL (4.30-5.90); RDW 14.3 % (11.5-15.5); WBC 5.1 k/uL (3.8-10.6)
[2020-09-19 07:16] LABS: Calcium 8.6 mg/dL (8.4-10.2); Potassium 3.7 mmol/L (3.5-5.1)
[2020-09-19] MEDS: CHOLECALCIFEROL 25 MCG (1000 IU) TABLET PO SCH (08:51)
[2020-09-19] MEDS: dexAMETHasone 2 MG TAB PO SCH (08:51)
[2020-09-19] MEDS: ENOXAPARIN 40 MG/0.4 ML SYRINGE SQ SCH ×2 (08:52→19:56)
[2020-09-19] MEDS: ZINC SULFATE 220 MG CAP PO SCH (08:52)
[2020-09-19] MEDS: ASCORBIC ACID 500 MG TAB PO SCH (08:52)
--- NOTE | 2020-09-19 11:35 | P.PN ---
Subjective Progress Note Date: 09/19/20 Pt reports overall improvement in symptoms. Oxygen requirement down to 12L NC with 93% saturation. Kidney function improving. Objective - Vital Signs Vital signs: Vital Signs Temp 97.7 F 09/19/20 08:00 Pulse 77 09/19/20 08:00 Resp 18 09/19/20 08:00 BP 116/68 09/19/20 08:00 Pulse Ox 92 L 09/19/20 08:00 Intake & Output 09/18/20 09/19/20 09/19/20 18:59 06:59 18:59 Intake Total 1034 660 240 Balance 1034 660 240 Weight 87 kg 91 kg Intake: Oral 840 660 240 Blood Product 194 Ffp Pher Conval High [address] [id number] Other: # Voids 2 # Bowel Movements 1 - Exam Gen: awake, alert HEENT: normocephalic, atraumatic, good hearing acuity, moist mucous membranes Resp: good air exchange, breathing comfortably with no accessory muscle use, bilateral crackles in the posterior bases abdomen test CVS: good distal perfusion x 4,, regular rate and rhythm without murmurs GI: soft, NTTP, ND, normal breath sounds : no SPT, no CVAT, triana catheter not present MSK: no pitting edema, no clubbing Neuro: non-focal, moving all extremities Psych: cooperative, euthymic mood - Labs CBC & Chem 7: 09/19/20 06:27 09/19/20 06:27 Labs: Abnormal Lab Results - Last 24 Hours (Table) 09/18/20 09/18/20 09/18/20 Range/Units 11:58 17:05 20:41 RBC (4.30-5.90) m/uL Hgb (13.0-17.5) gm/dL Hct (39.0-53.0) % MCV (80.0-100.0) fL MCH (25.0-35.0) pg BUN (9-20) mg/dL Creatinine (0.66-1.25) mg/dL Glucose (74-99) mg/dL POC Glucose (mg/dL) 308 H 311 H 272 H (75-99) mg/dL 09/19/20 09/19/20 09/19/20 Range/Units 06:27 06:27 06:45 RBC 6.07 H (4.30-5.90) m/uL Hgb 11.9 L (13.0-17.5) gm/dL Hct 37.5 L (39.0-53.0) % MCV 61.8 L (80.0-100.0) fL MCH 19.6 L (25.0-35.0) pg BUN 60 H (9-20) mg/dL Creatinine 1.60 H (0.66-1.25) mg/dL Glucose 147 H (74-99) mg/dL POC Glucose (mg/dL) 150 H (75-99) mg/dL Microbiology - Last 24 Hours (Table) 09/17/20 19:45 Blood Culture - Preliminary Blood No Growth after 24 hours 09/17/20 19:53 Blood Culture - Preliminary Blood No Growth after 24 hours Assessment and Plan Assessment: acute hypoxiic respiratory failure COIVD pneumonitis AARON DM insulin dependant , hyperglycemia plan supplemental oxygen as needed dexamethasone 6 mg daily for 10 days s/p convalescent plasma pulmonary consult pain and fever control with tylenol IVF hydration gentle basal insulin and insulin sliding scale monitor renal function lovenox full anticoagulation elevated inflammatory markers elevated trops , no chest pain, most likely 2/2 COVID EKG no acute ST changes CODE STATUS:full code DVT prophylaxis: on lovenox Discussed with: Patient, ER, RN Anticipated length of stay > than [address]: home
[2020-09-19 12:05] LABS: Glucose,Whole Blood 170 mg/dL (75-99)
--- NOTE | 2020-09-19 15:13 | P.PN ---
Subjective Progress Note Date: 09/19/20 Principal diagnosis: COVID 19 pneumonia 69-year-old male, who presented to the emergency department, on 09/17/2020. The patient apparently came in with complaints of shortness of breath, fever, and recently being tested positive for COVID 19. The patient hasn't been feeling we ll for a couple weeks now, and about 5 or 6 days ago, was tested here at this hospital and was positive for coronavirus. The patient was not having major issues at that time, and therefore was discharged home. More recently, over the last couple of days, he states that he is becoming more more symptomatic. He had muscle aches, poor appetite, loss of taste, just feeling fatigued, and shortness of breath on exertion. No fever or chills. He wasn't coughing up any phlegm. His cough is mostly nonproductive. He denied any chest pain or chest discomfort. There is no nausea, vomiting, diarrhea, or abdominal pain. A chest x-ray was done and showed bilateral infiltrates, and, his white count was 4.5, hemoglobin 13, hematocrit 41.5, and platelet count 312,000. D-dimer was 32.24, PaO2 was 64, with a PaCO2 of 28 and a pH is 7.49. Sodium was 135, potassium 4.3, chlorides 100, CO2 23, anion gap 12, BUN 56, and creatinine 1.77. Lactic acid was 2.1, LDH was 2084, and C-reactive protein was 66.4. Pro-calcitonin was 0.74. The patient is a lifelong nonsmoker, and his only major medical problem was that of diabetes. He is status post right BKA. Progress note dated 09/19/2020. This is a 69-year-old male that we saw in consultation yesterday. He presented to the emergency department on September 17, complaining of shortness of breath, fever, and recently been tested positive for COVID 19. Currently, the patient's on O2 at about 7-8 L/m high flow. He is feeling a bit better today. To look at the patient, he appears in no distress. He's not having any conversational dyspnea, audible wheezing, use of accessory muscles. He looks very comfortable. I told him we could not discharge him from the hospital till as oxygen requirements are down below 5 L/m. His only other medical problem is that of diabetes. He is a lifelong nonsmoker. White count is 5.1, hemoglobin 11.9, hematocrit 37.5, platelet count 181,000, sodium 137, potassium 3.7, chloride 107, CO2 24, anion gap 6, BUN 60, and creatinine 1.60. Objective - Vital Signs Vital signs: Vital Signs Temp 97.7 F 09/19/20 08:00 Pulse 79 09/19/20 12:00 Resp 16 09/19/20 14:00 BP 148/81 09/19/20 12:00 Pulse Ox 90 L 09/19/20 12:00 Intake & Output 09/18/20 09/19/20 09/19/20 18:59 06:59 18:59 Intake Total 1034 660 240 Balance 1034 660 240 Weight 87 kg 91 kg Intake: Oral 840 660 240 Blood Product 194 Ffp Pher Conval High [address] Unit [id number] Other: # Voids 2 # Bowel Movements 1 - Exam No acute distress, oriented 3. Nasal O2 in place at 10 L/m. Patient without apparent respiratory distress, audible wheezing, use of accessory muscles, or conversational dyspnea. HEENT examination is grossly unremarkable. Mucous membranes are moist. No oral lesions. Nasal O2 noted. Neck supple. Full range of motion. No adenopathy thyromegaly or neck vein distention. Cardiovascular examination reveals regular rhythm rate. S1-S2 normal. No S3 or S4. No discernible murmur noted. Heart rate 79 bpm. Lungs reveal bilateral expiratory rhonchi and some minimal basilar crackles. No wheezes. Breath sounds equal bilaterally. Exam is unchanged. Abdomen soft bowel sounds are heard. No masses or tenderness. Extremities are intact. No cyanosis clubbing or edema. Right below the knee amputation. Skin is without rash or lesion. Neurologic examination is brief but nonfocal. - Labs CBC & Chem 7: 09/19/20 06:27 09/19/20 06:27 Labs: Abnormal Lab Results - Last 24 Hours (Table) 09/18/20 09/18/20 09/19/20 Range/Units 17:05 20:41 06:27 RBC 6.07 H (4.30-5.90) m/uL Hgb 11.9 L (13.0-17.5) gm/dL Hct 37.5 L (39.0-53.0) % MCV 61.8 L (80.0-100.0) fL MCH 19.6 L (25.0-35.0) pg BUN (9-20) mg/dL Creatinine (0.66-1.25) mg/dL Glucose (74-99) mg/dL POC Glucose (mg/dL) 311 H 272 H (75-99) mg/dL 09/19/20 09/19/20 09/19/20 Range/Units 06:27 06:45 11:56 RBC (4.30-5.90) m/uL Hgb (13.0-17.5) gm/dL Hct (39.0-53.0) % MCV (80.0-100.0) fL MCH (25.0-35.0) pg BUN 60 H (9-20) mg/dL Creatinine 1.60 H (0.66-1.25) mg/dL Glucose 147 H (74-99) mg/dL POC Glucose (mg/dL) 150 H 170 H (75-99) mg/dL Microbiology - Last 24 Hours (Table) 09/17/20 19:45 Blood Culture - Preliminary Blood No Growth after 24 hours 09/17/20 19:53 Blood Culture - Preliminary Blood No Growth after 24 hours Assessment and Plan Assessment: Acute hypoxemic respiratory failure secondary to COVID 19 pneumonia. History of diabetes mellitus. Right below the knee amputation. Lifelong nonsmoker. Plan: Plan dated 09/19/2020. The patient clinically looks good. His oxygen requirements have come down a bit. He is on appropriate medications. He was really be on the window for REM, TOCI, and convalescent plasma. The patient is on Decadron, vitamin C, vitamin D3, zinc, and an albuterol inhaler. The patient is also on Lovenox, 40 mg subcu twice a day. His only d-dimer was elevated at 32.24. Additional recommendations and suggestions are forthcoming. We'll continue to follow along and make recommendations were appropriate. Prognosis is guarded. Time with Patient: Less than 30
[2020-09-19 16:57] LABS: Glucose,Whole Blood 299 mg/dL (75-99)
[2020-09-19 20:18] LABS: Glucose,Whole Blood 340 mg/dL (75-99)
[2020-09-19] MEDS: INSULIN DETEMIR (LEVEMIR) 100 UNIT/ML SYR SQ SCH (21:10)
[2020-09-20 06:12] LABS: Glucose,Whole Blood 115 mg/dL (75-99)
[2020-09-20] MEDS: INSULIN ASPART (NovoLOG) 100 UNIT/ML VIAL SQ SCH ×4 (06:30→21:33)
[2020-09-20 07:52] LABS: Basophils % (A) 0 %; Eosinophils % (A) 0 %; HCT 37.3 % (39.0-53.0); HGB 11.8 gm/dL (13.0-17.5); Hypochromasia Slight; Lymphocytes # (A) 0.3 k/uL (1.0-4.8); Lymphocytes % (A) 6 %; MCH 19.5 pg (25.0-35.0); MCHC 31.7 g/dL (31.0-37.0); MCV 61.7 fL (80.0-100.0); Mean Platelet Volume 6.7; Microcytosis Marked; Monocytes # (A) 0.1 k/uL (0-1.0); Monocytes % (A) 2 %; Neutrophils % (A) 90 %; Platelet Count 149 k/uL (150-450); Poikilocytosis Slight; RBC 6.05 m/uL (4.30-5.90); RDW 14.2 % (11.5-15.5); WBC 4.4 k/uL (3.8-10.6)
[2020-09-20 08:07] LABS: Calcium 8.6 mg/dL (8.4-10.2); Magnesium 1.8 mg/dL (1.6-2.3); Potassium 3.8 mmol/L (3.5-5.1)
[2020-09-20] MEDS: ZINC SULFATE 220 MG CAP PO SCH (09:27)
[2020-09-20] MEDS: CHOLECALCIFEROL 25 MCG (1000 IU) TABLET PO SCH (09:27)
[2020-09-20] MEDS: ASCORBIC ACID 500 MG TAB PO SCH (09:27)
[2020-09-20] MEDS: dexAMETHasone 2 MG TAB PO SCH (09:27)
[2020-09-20] MEDS: ENOXAPARIN 40 MG/0.4 ML SYRINGE SQ SCH ×2 (09:28→21:34)
--- NOTE | 2020-09-20 10:27 | P.PN ---
<Paul Vieyra - Last Filed: 09/20/20 09:26> Subjective Progress Note Date: 09/20/20 Principal diagnosis: Covid Pneumonitis Hospital course: Patient is a 69-year-old male with a past medical history of type 2 insulin- dependent diabetes mellitus and right BKA. Patient was diagnosed with Covid 19 virus infection on 09/12/20 and continued to have increasing shortness of breath and fatigue accompanied by muscle aches, poor appetite, and loss of taste r esulting in him coming to the hospital for evalution.Upon arrival he was found to be in acute respiratory failure with hypoxia with SPO2 78% on room air requiring BIPAP with supplemental oxygenation. Lab findings revealed an elevated d-dimer of 32.24; respiratory alkalosis with pCO2 of 28, PaO2 of 64, and pH of 7.49; elevated lactate of 2.1; ferritin of 1679.6; LDH 2084; troponin 0.146; CRP is 66.4; a KCI with BUN of 56, creatinine 1.77, and GFR of 38; and pro-calcitonin of 0.74. As a result, Mr. Stockton was admitted to the hospital on 09/17/20 for acute respiratory failure with hypoxia resulting from Covid 19 virus infection with pneumonitis. Upon admission and chest x-ray was positive for bilateral multifocal pneumonia. His EKG revealed normal sinus rhythm at 83 bpm with a prolonged QT/QTC of 422/495 ms, no T-wave or ST abnormalities noted. Patient has been on Decadron 6 mg daily with today being day 4 of 10. Patient also being treated with vitamin C, vitamin D, and zinc with DVT prophylaxis being provided with Lovenox 40 mg twice daily. Patient continues to be in hypoxic respiratory failure with oxygen requirement 15 L via high flow nasal cannula at this time. Pulmonology is following. Physical exam: Patient was seen and fully evaluated at the bedside. He was sitting up in bed eating his breakfast. Patient reports that he is feeling a little better when compared to yesterday. He states that when he lies down he continues to have an increased difficulty with breathing, but reported improvement of generalized body aches, a slightly increased appetite and return of taste, and denies feeling any chest pain, palpitations, abdominal pain/discomfort, nausea or vomiting. Patient continues to have good oral intake and is approximately 60- 75% of his breakfast. Patient's oxygen requirements have increased from 10 L to 15 L over the past 24 hours. Patient is currently on 15 L high flow nasal cannula with SpO2 of 91-92%, vital signs otherwise stable. Morning labs completed with CBC revealing patient to have thrombocytopenia with platelet count of 149,000 mild macrocytic microchromic anemia with hemoglobin 11.8, hematocrit 37.3, MCV 61.7, MCH 19.5, and MCHC of 31.7; BMP revealing continued improvement in renal function with BUN of 58, creatinine 1.41, and GFR 51. General: non toxic, no distress, appears at stated age Derm: warm, dry Head: atraumatic, normocephalic, symmetric Eyes: EOMI, no lid lag, anicteric sclera Mouth: no lip lesion, mucus membranes moist Cardiovascular: S1S2 reg, no murmur, positive posterior tibial pulse bilateral, Lungs: Respirations even, regular, and unlabored on 15 L O2 via high flow nasal cannula. Upon auscultation of lungs, patient has noted diffuse rhonchi bilaterally with soft crackles bilateral bases. Abdominal: soft, nontender to palpation, no guarding, no appreciable organomegaly Ext: no gross muscle atrophy, no edema, no contractures, patient has right BKA. Neuro: CN II-XII grossly intact, no focal neuro deficits Psych: Alert, oriented, appropriate affect Assessment and Plan of Care: Covid pneumonitis resulting in acute hypoxic respiratory failure -Continue Decadron 6 mg daily, today's day for 10. -Continue vitamin C, vitamin D, and zinc. -MDIs as needed. -Patient received convalescent plasma. -Pulmonology is following, appreciate further recommendations. -Continue oxygenation, wean once patient is able. -Symptomatic care, encourage oral fluids, Tylenol for mild pain and/or fever. -Continue therapeutic anticoagulation with Lovenox. Acute kidney injury, improving -BMP revealing continued improvement in renal function with BUN of 58, creatinine 1.41, and GFR 51. -We will continue to monitor. Insulin-dependent diabetes mellitus type II -Glycemic protocol with NovoLog sliding scale along with Levemir 15 units nightly. -Heart healthy carb consistent diet. Elevated troponin, d-dimer, and inflammatory markers most likely resulting from Covid 19 virus infection -Patient asymptomatic denying having any chest pain, palpitations or further cardiac complaints. -EKG revealed normal sinus rhythm at 83 bpm with a prolonged QT/QTC of 422/495 ms, no T-wave or ST abnormalities noted. -Continuous telemetry monitoring. -Continue therapeutic anticoagulation with Lovenox. Thrombocytopenia, Secondary to anticoagulation with Lovenox. -Bleeding precautions, continue to monitor. CODE STATUS: Full code DVT prophylaxis: Therapeutic Lovenox Discussed with: Patient and RN Anticipated discharge date: Clinical course to determine Anticipated discharge place: Home with home care A total of 45 minutes was spent on the care of this complex patient more than 50% of the time was spent in counseling and care coordination. Objective - Vital Signs Vital signs: Vital Signs Temp 97.5 F L 09/20/20 03:38 Pulse 74 09/20/20 03:38 Resp 17 09/20/20 03:45 BP 151/80 09/20/20 03:38 Pulse Ox 92 L 09/20/20 03:45 Intake & Output 09/19/20 09/20/20 09/20/20 18:59 06:59 18:59 Intake Total 720 660 Balance 720 660 Weight 91 kg 89 kg Intake: Oral 720 660 Other: Voiding Method Toilet # Voids 2 1 - Labs CBC & Chem 7: 09/20/20 07:27 09/20/20 07:27 Labs: Abnormal Lab Results - Last 24 Hours (Table) 09/19/20 09/19/20 09/19/20 Range/Units 11:56 16:46 20:16 RBC (4.30-5.90) m/uL Hgb (13.0-17.5) gm/dL Hct (39.0-53.0) % MCV (80.0-100.0) fL MCH (25.0-35.0) pg Plt Count (150-450) k/uL Lymphocytes # (1.0-4.8) k/uL Chloride (98-107) mmol/L BUN (9-20) mg/dL Creatinine (0.66-1.25) mg/dL Glucose (74-99) mg/dL POC Glucose (mg/dL) 170 H 299 H 340 H (75-99) mg/dL 09/20/20 09/20/20 09/20/20 Range/Units 06:11 07:27 07:27 RBC 6.05 H (4.30-5.90) m/uL Hgb 11.8 L (13.0-17.5) gm/dL Hct 37.3 L (39.0-53.0) % MCV 61.7 L (80.0-100.0) fL MCH 19.5 L (25.0-35.0) pg Plt Count 149 L (150-450) k/uL Lymphocytes # 0.3 L (1.0-4.8) k/uL Chloride 108 H (98-107) mmol/L BUN 58 H (9-20) mg/dL Creatinine 1.41 H (0.66-1.25) mg/dL Glucose 104 H (74-99) mg/dL POC Glucose (mg/dL) 115 H (75-99) mg/dL Microbiology - Last 24 Hours (Table) 09/17/20 19:45 Blood Culture - Preliminary Blood No Growth after 48 hours 09/17/20 19:53 Blood Culture - Preliminary Blood No Growth after 48 hours <Mildred Melton - Last Filed: 09/20/20 16:58> Objective - Vital Signs Vital signs: Vital Signs Temp 97.5 F L 09/20/20 08:00 Pulse 80 09/20/20 12:00 Resp 16 09/20/20 12:00 BP 151/80 09/20/20 12:00 Pulse Ox 88 L 09/20/20 12:00 Intake & Output 09/19/20 09/20/20 09/20/20 18:59 06:59 18:59 Intake Total 720 660 480 Balance 720 660 480 Weight 91 kg 89 kg Intake: Oral 720 660 480 Other: Voiding Method Toilet Toilet # Voids 2 1 1 # Bowel Movements 0 - Labs CBC & Chem 7: 09/20/20 07:27 09/20/20 07:27 Labs: Abnormal Lab Results - Last 24 Hours (Table) 09/19/20 09/19/20 09/20/20 Range/Units 16:46 20:16 06:11 RBC (4.30-5.90) m/uL Hgb (13.0-17.5) gm/dL Hct (39.0-53.0) % MCV (80.0-100.0) fL MCH (25.0-35.0) pg Plt Count (150-450) k/uL Lymphocytes # (1.0-4.8) k/uL Chloride (98-107) mmol/L BUN (9-20) mg/dL Creatinine (0.66-1.25) mg/dL Glucose (74-99) mg/dL POC Glucose (mg/dL) 299 H 340 H 115 H (75-99) mg/dL 09/20/20 09/20/20 09/20/20 Range/Units 07:27 07:27 11:40 RBC 6.05 H (4.30-5.90) m/uL Hgb 11.8 L (13.0-17.5) gm/dL Hct 37.3 L (39.0-53.0) % MCV 61.7 L (80.0-100.0) fL MCH 19.5 L (25.0-35.0) pg Plt Count 149 L (150-450) k/uL Lymphocytes # 0.3 L (1.0-4.8) k/uL Chloride 108 H (98-107) mmol/L BUN 58 H (9-20) mg/dL Creatinine 1.41 H (0.66-1.25) mg/dL Glucose 104 H (74-99) mg/dL POC Glucose (mg/dL) 233 H (75-99) mg/dL Microbiology - Last 24 Hours (Table) 09/17/20 19:45 Blood Culture - Preliminary Blood No Growth after 48 hours 09/17/20 19:53 Blood Culture - Preliminary Blood No Growth after 48 hours Assessment and Plan Assessment: Patient seen and examined independently. Patient was also seen by Paul Vieyra NP and case was discussed. I am in agreement with subjective, physical exam, assessment and plan as written above and amended below. He denies feeling SOB at rest but is with movement. No chest pain. He has continued to worsen the longer he as had Covid symptoms. General: non toxic, no distress, appears at stated age Derm: warm, dry Head: atraumatic, normocephalic, symmetric Eyes: EOMI, no lid lag, anicteric sclera Mouth: no lip lesion, mucus membranes moist Cardiovascular: S1S2 reg, no murmur, positive posterior tibial pulse left Lungs: course bs bilateral, no rhonchi, no rales , no accessory muscle use Abdominal: soft, nontender to palpation, no guarding, no appreciable organomegaly Ext: no gross muscle atrophy, no edema, no contractures Neuro: CN II-XI grossly intact, no focal neuro deficits Psych: Alert, oriented, appropriate affect D-dimer with significant elevation. - concern for underliing VTE on top of COVID-19. Discussed with patient risk vs benefit of CTA chest for PE given renal function. We will attempt to minimize risk to kidney. We will start with doppler of LLE and if positive will treat for presumed pulmonary embolism as well, if negative will proceed with IV fluid hydration and then CTA chest. This will allow us to determine if patient will need to be discharged with anticoagulation. Patient is aware of the risk of worsening renal function with exposure to contrast dye and is in agreement with the above presented plan. Patient is currently on intermediate dose anticoagulation which will be continued in light of his decreasing platelets. He is not a candidate for a V/Q scan due to concurrent diagnosis of PNA which will affect the quality of the V/Q scan.
[2020-09-20 11:42] LABS: Glucose,Whole Blood 233 mg/dL (75-99)
--- NOTE | 2020-09-20 12:20 | P.PN ---
Subjective Progress Note Date: 09/20/20 Principal diagnosis: CoVID 19 pneumonia 69-year-old male, who presented to the emergency department, on 09/17/2020. The patient apparently came in with complaints of shortness of breath, fever, and recently being tested positive for COVID 19. The patient hasn't been feeling we ll for a couple weeks now, and about 5 or 6 days ago, was tested here at this hospital and was positive for coronavirus. The patient was not having major issues at that time, and therefore was discharged home. More recently, over the last couple of days, he states that he is becoming more more symptomatic. He had muscle aches, poor appetite, loss of taste, just feeling fatigued, and shortness of breath on exertion. No fever or chills. He wasn't coughing up any phlegm. His cough is mostly nonproductive. He denied any chest pain or chest discomfort. There is no nausea, vomiting, diarrhea, or abdominal pain. A chest x-ray was done and showed bilateral infiltrates, and, his white count was 4.5, hemoglobin 13, hematocrit 41.5, and platelet count 312,000. D-dimer was 32.24, PaO2 was 64, with a PaCO2 of 28 and a pH is 7.49. Sodium was 135, potassium 4.3, chlorides 100, CO2 23, anion gap 12, BUN 56, and creatinine 1.77. Lactic acid was 2.1, LDH was 2084, and C-reactive protein was 66.4. Pro-calcitonin was 0.74. The patient is a lifelong nonsmoker, and his only major medical problem was that of diabetes. He is status post right BKA. Progress note dated 09/19/2020. This is a 69-year-old male that we saw in consultation yesterday. He presented to the emergency department on September 17, complaining of shortness of breath, fever, and recently been tested positive for COVID 19. Currently, the patient's on O2 at about 7-8 L/m high flow. He is feeling a bit better today. To look at the patient, he appears in no distress. He's not having any conversational dyspnea, audible wheezing, use of accessory muscles. He looks very comfortable. I told him we could not discharge him from the hospital till as oxygen requirements are down below 5 L/m. His only other medical problem is that of diabetes. He is a lifelong nonsmoker. White count is 5.1, hemoglobin 11.9, hematocrit 37.5, platelet count 181,000, sodium 137, potassium 3.7, chloride 107, CO2 24, anion gap 6, BUN 60, and creatinine 1.60. Patient is seen today 09/20/2020 in follow-up on the selective care unit. He is currently sitting up in a chair at the bedside. Awake and alert in no acute distress. Breathing better today compared to yesterday. Still requiring 15 L high flow nasal cannula to maintain O2 saturation in the 90s. He's been afebrile. He has received 1 unit of convalescent plasma. Blood cultures reveal no growth. White count 4.4. Hemoglobin 11.8. Platelets 149. Lymphocytes 0.3. Sodium 139. Potassium 3.8. Creatinine 1.41. He remains on dexamethasone, Lovenox, vitamin supplements. Objective - Vital Signs Vital signs: Vital Signs Temp 97.5 F L 09/20/20 08:00 Pulse 78 09/20/20 08:00 Resp 18 09/20/20 08:00 BP 118/63 09/20/20 08:00 Pulse Ox 92 L 09/20/20 08:00 Intake & Output 09/19/20 09/20/20 09/20/20 18:59 06:59 18:59 Intake Total 720 660 240 Balance 720 660 240 Weight 91 kg 89 kg Intake: Oral 720 660 240 Other: Voiding Method Toilet Toilet # Voids 2 1 1 # Bowel Movements 0 - Exam GENERAL EXAM: Alert, pleasant 69-year-old gentleman, and 15 L high flow nasal cannula, comfortable in no apparent distress. HEAD: Normocephalic. EYES: Normal reaction of pupils, equal size. NOSE: Clear with pink turbinates. THROAT: No erythema or exudates. NECK: No masses, no JVD. CHEST: No chest wall deformity. LUNGS: Equal air entry with crackles in the bilateral posterior bases. CVS: S1 and S2 normal with no audible murmur, regular rhythm. ABDOMEN: No hepatosplenomegaly, normal bowel sounds, no guarding or rigidity. SPINE: No scoliosis or deformity SKIN: No rashes CENTRAL NERVOUS SYSTEM: No focal deficits, tone is normal in all 4 extremities. EXTREMITIES: There is no peripheral edema. No clubbing, no cyanosis. Peripheral pulses are intact. - Labs CBC & Chem 7: 09/20/20 07:27 09/20/20 07:27 Labs: Abnormal Lab Results - Last 24 Hours (Table) 09/19/20 09/19/20 09/20/20 Range/Units 16:46 20:16 06:11 RBC (4.30-5.90) m/uL Hgb (13.0-17.5) gm/dL Hct (39.0-53.0) % MCV (80.0-100.0) fL MCH (25.0-35.0) pg Plt Count (150-450) k/uL Lymphocytes # (1.0-4.8) k/uL Chloride (98-107) mmol/L BUN (9-20) mg/dL Creatinine (0.66-1.25) mg/dL Glucose (74-99) mg/dL POC Glucose (mg/dL) 299 H 340 H 115 H (75-99) mg/dL 09/20/20 09/20/20 09/20/20 Range/Units 07:27 07:27 11:40 RBC 6.05 H (4.30-5.90) m/uL Hgb 11.8 L (13.0-17.5) gm/dL Hct 37.3 L (39.0-53.0) % MCV 61.7 L (80.0-100.0) fL MCH 19.5 L (25.0-35.0) pg Plt Count 149 L (150-450) k/uL Lymphocytes # 0.3 L (1.0-4.8) k/uL Chloride 108 H (98-107) mmol/L BUN 58 H (9-20) mg/dL Creatinine 1.41 H (0.66-1.25) mg/dL Glucose 104 H (74-99) mg/dL POC Glucose (mg/dL) 233 H (75-99) mg/dL Microbiology - Last 24 Hours (Table) 09/17/20 19:45 Blood Culture - Preliminary Blood No Growth after 48 hours 09/17/20 19:53 Blood Culture - Preliminary Blood No Growth after 48 hours Assessment and Plan Assessment: 1 Acute hypoxemic respiratory failure secondary to CoVID 19 pneumonia. Outside the window for Remdesivir 2 Diabetes mellitus 3 Lifelong nonsmoker 4 History of right below the knee amputation Plan: The patient was seen and evaluated by Dr. Marie Continue to titrate down the FiO2 as tolerated Continue Decadron, Lovenox, vitamin supplement Repeat inflammatory markers in the a.m. Repeat chest x-ray in the a.m. We will continue to follow I, the cosigning physician, performed a history & physical examination of the patient. Lungs sounds with crackles in the posterior bases. Maintaining good O2 saturations in the 90s on 15 L high flow nasal cannula. I discussed the assessment and plan of care with my nurse practitioner, Nathalia Ruvalcaba. I attest to the above note as dictated by her.
--- NOTE | 2020-09-20 15:55 | US ---
EXAMINATION TYPE: US venous doppler duplex LE LT DATE OF EXAM: 09/20/2020 3:46 PM COMPARISON: NONE CLINICAL HISTORY: pain concern for DVT. Left leg pain SIDE PERFORMED: Left TECHNIQUE: The lower extremity deep venous system is examined utilizing real time linear array sonog mary with graded compression, doppler sonography and color-flow sonography. VESSELS IMAGED: Common Femoral Vein Deep Femoral Vein Greater Saphenous Vein * Femoral Vein Popliteal Vein Small Saphenous Vein * Proximal Calf Veins (* superficial vessels) Left Leg: Appears negative for DVT IMPRESSION: Grayscale, color doppler, spectral doppler imaging performed of the deep veins of the lo wer extremities. There is normal flow, compressibility, vascular waveforms.
[2020-09-20] MEDS ORDERED: SODIUM CHLORIDE 0.9% 500 ML 500 ML IV ONE (16:31)
[2020-09-20 16:59] LABS: Glucose,Whole Blood 244 mg/dL (75-99)
[2020-09-20] MEDS: SODIUM CHLORIDE 0.9% 1,000 ML IV SCH (17:20)
[2020-09-20 20:15] LABS: Glucose,Whole Blood 361 mg/dL (75-99)
[2020-09-20] MEDS: INSULIN DETEMIR (LEVEMIR) 100 UNIT/ML SYR SQ SCH (21:33)
[2020-09-21 06:07] LABS: Glucose,Whole Blood 128 mg/dL (75-99)
[2020-09-21] MEDS: SODIUM CHLORIDE 0.9% 1,000 ML IV SCH (06:10)
[2020-09-21] MEDS: INSULIN ASPART (NovoLOG) 100 UNIT/ML VIAL SQ SCH ×4 (06:16→21:22)
--- NOTE | 2020-09-21 08:26 | XR ---
EXAMINATION TYPE: XR chest 1V portable DATE OF EXAM: 09/21/2020 COMPARISON: 09/17/2020 HISTORY: Cough TECHNIQUE: Single frontal view of the chest is obtained. FINDINGS: Patchy bilateral infiltrates. Hyperinflation. Arthropathy of the shoulders. No pleural eff usion. No pneumothorax. IMPRESSION: Stable patchy bilateral infiltrate
[2020-09-21 08:43] LABS: HCT 40.1 % (39.0-53.0); HGB 12.6 gm/dL (13.0-17.5); Hypochromasia Slight; MCHC 31.5 g/dL (31.0-37.0); MCV 63.6 fL (80.0-100.0); Microcytosis Marked; Platelet Count 158 k/uL (150-450); Poikilocytosis Slight; RBC 6.32 m/uL (4.30-5.90); RDW 14.4 % (11.5-15.5); WBC 6.8 k/uL (3.8-10.6)
[2020-09-21] MEDS: ZINC SULFATE 220 MG CAP PO SCH (08:56)
[2020-09-21] MEDS: dexAMETHasone 2 MG TAB PO SCH (08:56)
[2020-09-21] MEDS: ASCORBIC ACID 500 MG TAB PO SCH (08:56)
[2020-09-21] MEDS: CHOLECALCIFEROL 25 MCG (1000 IU) TABLET PO SCH (08:56)
[2020-09-21] MEDS ORDERED: ENOXAPARIN 80 MG/0.8 ML SYRINGE SQ SCH (09:00)
[2020-09-21 09:05] LABS: Albumin 2.9 g/dL (3.5-5.0); C Reactive Protein 19.9 mg/L (<10.0); Calcium 8.6 mg/dL (8.4-10.2); Potassium 3.8 mmol/L (3.5-5.1)
[2020-09-21] MEDS ORDERED: FUROSEMIDE 10 MG/ML 4 ML VIAL IV STA (09:32)
--- NOTE | 2020-09-21 09:56 | P.PN ---
<Paul Vieyra - Last Filed: 09/21/20 09:20> Subjective Progress Note Date: 09/21/20 Principal diagnosis: Covid Pneumonitis Hospital course: Patient is a 69-year-old male with a past medical history of type 2 insulin- dependent diabetes mellitus and right BKA. Patient was diagnosed with Covid 19 virus infection on 09/12/20 and continued to have increasing shortness of breath and fatigue accompanied by muscle aches, poor appetite, and loss of taste r esulting in him coming to the hospital for evalution.Upon arrival he was found to be in acute respiratory failure with hypoxia with SPO2 78% on room air requiring BIPAP with supplemental oxygenation. Lab findings revealed an elevated d-dimer of 32.24; respiratory alkalosis with pCO2 of 28, PaO2 of 64, and pH of 7.49; elevated lactate of 2.1; ferritin of 1679.6; LDH 2084; troponin 0.146; CRP is 66.4; a KCI with BUN of 56, creatinine 1.77, and GFR of 38; and pro-calcitonin of 0.74. As a result, Mr. Stockton was admitted to the hospital on 09/17/20 for acute respiratory failure with hypoxia resulting from Covid 19 virus infection with pneumonitis. Upon admission and chest x-ray was positive for bilateral multifocal pneumonia. His EKG revealed normal sinus rhythm at 83 bpm with a prolonged QT/QTC of 422/495 ms, no T-wave or ST abnormalities noted. Patient has been on Decadron 6 mg daily with today being day 5 of 10. Patient also being treated with vitamin C, vitamin D, and zinc. Therapeutic anticoagulation being provided with Lovenox 80 mg twice daily. Patient continues to be in hypoxic respiratory failure with continued increasing oxygen requirement. Pt currently on NRB 15L and high flow NC at 15 L via high flow nasal cannula at this time with SPO2 91-92%. Pulmonology is following. Physical exam: 09/21/20: Patient was seen and fully evaluated at the bedside. He was resting high fowlers in bed. He reports feeling a little worse than yesterday and states that it has been "harder to breath." Patient's oxygen requirements have continued to increase from 15 L high flow NC yesterday and now on 15L high-flow NC and 15L NRB mask with SpO2 of 91-92%, Vital signs otherwise remain stable. Venous Doppler completed yesterday to left lower extremity negative for DVTs. Repeat chest x-ray completed this morning showing stable patchy bilateral infiltrate with hyperinflation. Morning labs again completed, CBC and BMP with no significant abnormalities with renal function improving to a BUN of 48, creatinine 1.28, and GFR of 57. Inflammatory markers revealing significant i mprovement with CRP down to 19.9 from previous 66.4, LDH is now 1635 from previous 2083, and d-dimer is now 6.29 from previous 32.24. Additional orders being placed to determine exact cause of continued increasing oxygen demands despite stable chest x-ray and improving inflammatory markers. We will stop intravenous fluids, give lasix 40 mg IVP x one dose, and obtain an echocardiogram. Would like to obtain a CT PE, however must wait until pt stable to be taken down for this examination. Pending his improvement, we will place pt back on therapeutic anticoagulation with Lovenox 80 mg BID. Patient continues to deny having any chest pain, palpitations, dizziness, or lightheadedness. Only complaint is fatigue and increased shortness of breath. General: non toxic, no distress, appears at stated age Derm: warm, dry Head: atraumatic, normocephalic, symmetric Eyes: EOMI, no lid lag, anicteric sclera Mouth: no lip lesion, mucus membranes moist Cardiovascular: S1S2 reg, no murmur, positive posterior tibial pulse bilateral, Lungs: Respirations even, regular, and unlabored on 15 L O2 via high flow nasal cannula. Upon auscultation of lungs, patient has noted diffuse rhonchi bilaterally with soft crackles bilateral bases. Abdominal: soft, nontender to palpation, no guarding, no appreciable organomegaly Ext: no gross muscle atrophy, no edema, no contractures, patient has right BKA. Neuro: CN II-XII grossly intact, no focal neuro deficits Psych: Alert, oriented, appropriate affect Assessment and Plan of Care: Covid pneumonitis resulting in acute hypoxic respiratory failure -Repeat chest x-ray completed this morning showing stable patchy bilateral infiltrates with hyperinflation. -Inflammatory markers revealing significant improvement with CRP down to 19.9 from previous 66.4, LDH is now 1635 from previous 2084, and d-dimer is now 6.29 from previous 32.24. -Continue Decadron 6 mg daily, today is day 5 of 10. -Continue vitamin C, vitamin D, and zinc. -MDIs as needed. -Patient received convalescent plasma. -Pulmonology is following, appreciate further recommendations. -Continue oxygenation, wean once patient is able. -Symptomatic care, encourage oral fluids, Tylenol for mild pain and/or fever. -Continue therapeutic anticoagulation with Lovenox. -Patient placed back on therapeutic Lovenox 80 mg twice a day. -Intravenous fluids stopped, Lasix 40 mg IVP to be administered 1 dose. -Echocardiogram to be completed Acute kidney injury, improving -BMP revealing continued improvement in renal function with BUN of 48, creatinine 1.28, and GFR of 57 -We will continue to monitor. Insulin-dependent diabetes mellitus type II -Glycemic protocol with NovoLog sliding scale along with Levemir 15 units nightly. -Heart healthy carb consistent diet. Elevated troponin, d-dimer, and inflammatory markers most likely resulting from Covid 19 virus infection -Patient asymptomatic denying having any chest pain, palpitations or further cardiac complaints. -EKG revealed normal sinus rhythm at 83 bpm with a prolonged QT/QTC of 422/495 ms, no T-wave or ST abnormalities noted. -Continuous telemetry monitoring. -Continue therapeutic anticoagulation with Lovenox. Thrombocytopenia, resolved. CODE STATUS: Full code DVT prophylaxis: Therapeutic Lovenox Discussed with: Patient and RN Anticipated discharge date: Clinical course to determine Anticipated discharge place: Home with home care A total of 45 minutes was spent on the care of this complex patient more than 50% of the time was spent in counseling and care coordination. Objective - Vital Signs Vital signs: Vital Signs Temp 97.9 F 09/21/20 04:32 Pulse 76 09/21/20 04:32 Resp 18 09/21/20 06:27 BP 146/89 09/21/20 04:32 Pulse Ox 91 L 09/21/20 06:27 Intake & Output 09/20/20 09/21/20 09/21/20 18:59 06:59 18:59 Intake Total 480 100 Balance 480 100 Weight 88.5 kg Intake: Oral 480 100 Other: Voiding Method Toilet Toilet # Voids 1 1 # Bowel Movements 0 - Labs CBC & Chem 7: 09/21/20 08:30 09/21/20 08:30 Labs: Abnormal Lab Results - Last 24 Hours (Table) 0309/20/20 09/20/20 Range/Units 11:40 16:55 20:13 RBC (4.30-5.90) m/uL Hgb (13.0-17.5) gm/dL MCV (80.0-100.0) fL MCH (25.0-35.0) pg POC Glucose (mg/dL) 233 H 244 H 361 H (75-99) mg/dL 09/21/20 09/21/20 Range/Units 06:06 08:30 RBC 6.32 H (4.30-5.90) m/uL Hgb 12.6 L (13.0-17.5) gm/dL MCV 63.6 L (80.0-100.0) fL MCH 20.0 L (25.0-35.0) pg POC Glucose (mg/dL) 128 H (75-99) mg/dL Microbiology - Last 24 Hours (Table) 09/17/20 19:45 Blood Culture - Preliminary Blood No Growth after 72 hours 09/17/20 19:53 Blood Culture - Preliminary Blood No Growth after 72 hours <Mildred Melton A - Last Filed: 09/21/20 11:41> Objective - Vital Signs Vital signs: Vital Signs Temp 98 F 09/21/20 08:00 Pulse 60 09/21/20 08:00 Resp 18 09/21/20 11:07 BP 148/75 09/21/20 11:07 Pulse Ox 94 L 09/21/20 11:07 Intake & Output 09/20/20 09/21/20 09/21/20 18:59 06:59 18:59 Intake Total 480 100 240 Output Total 400 Balance 480 100 -160 Weight 88.5 kg Intake: Oral 480 100 240 Output: Urine 400 Other: Voiding Method Toilet Toilet Toilet # Voids 1 1 # Bowel Movements 0 - Labs CBC & Chem 7: 09/21/20 08:30 09/21/20 08:30 Labs: Abnormal Lab Results - Last 24 Hours (Table) 09/20/20 09/20/20 09/20/20 Range/Units 11:40 16:55 20:13 RBC (4.30-5.90) m/uL Hgb (13.0-17.5) gm/dL MCV (80.0-100.0) fL MCH (25.0-35.0) pg D-Dimer (<0.60) mg/L FEU Chloride (98-107) mmol/L Carbon Dioxide (22-30) mmol/L BUN (9-20) mg/dL Creatinine (0.66-1.25) mg/dL Glucose (74-99) mg/dL POC Glucose (mg/dL) 233 H 244 H 361 H (75-99) mg/dL AST (17-59) U/L Lactate Dehydrogenase (313-618) U/L C-Reactive Protein (<10.0) mg/L Total Protein (6.3-8.2) g/dL Albumin (3.5-5.0) g/dL 09/21/20 09/21/20 09/21/20 Range/Units 06:06 08:30 08:30 RBC (4.30-5.90) m/uL Hgb (13.0-17.5) gm/dL MCV (80.0-100.0) fL MCH (25.0-35.0) pg D-Dimer 6.29 H (<0.60) mg/L FEU Chloride 110 H (98-107) mmol/L Carbon Dioxide 20 L (22-30) mmol/L BUN 48 H (9-20) mg/dL Creatinine 1.28 H (0.66-1.25) mg/dL Glucose 130 H (74-99) mg/dL POC Glucose (mg/dL) 128 H (75-99) mg/dL AST 64 H (17-59) U/L Lactate Dehydrogenase 1635 H (313-618) U/L C-Reactive Protein 19.9 H (<10.0) mg/L Total Protein 6.0 L (6.3-8.2) g/dL Albumin 2.9 L (3.5-5.0) g/dL 09/21/20 Range/Units 08:30 RBC 6.32 H (4.30-5.90) m/uL Hgb 12.6 L (13.0-17.5) gm/dL MCV 63.6 L (80.0-100.0) fL MCH 20.0 L (25.0-35.0) pg D-Dimer (<0.60) mg/L FEU Chloride (98-107) mmol/L Carbon Dioxide (22-30) mmol/L BUN (9-20) mg/dL Creatinine (0.66-1.25) mg/dL Glucose (74-99) mg/dL POC Glucose (mg/dL) (75-99) mg/dL AST (17-59) U/L Lactate Dehydrogenase (313-618) U/L C-Reactive Protein (<10.0) mg/L Total Protein (6.3-8.2) g/dL Albumin (3.5-5.0) g/dL Microbiology - Last 24 Hours (Table) 09/17/20 19:45 Blood Culture - Preliminary Blood No Growth after 72 hours 09/17/20 19:53 Blood Culture - Preliminary Blood No Growth after 72 hours Assessment and Plan Assessment: Patient seen and examined independently. Patient was also seen by Paul Vieyra NP and case was discussed. I am in agreement with subjective, physical exam, assessment and plan as written above and amended below. General: non toxic, mild distress, appears at stated age Derm: warm, dry Head: atraumatic, normocephalic, symmetric Eyes: EOMI, no lid lag, anicteric sclera Mouth: no lip lesion, mucus membranes moist Cardiovascular: S1S2 reg, no murmur, positive posterior tibial pulse bilateral, Lungs: ronchi bilateral bases , no accessory muscle use Abdominal: soft, nontender to palpation, no guarding, no appreciable organomegaly Ext: no gross muscle atrophy, no edema, no contractures Psych: Alert, oriented, appropriate affect Concern wtih worsening hypoxemia with stable CXR and improving COVID labs. I think he would benefit from evaluation for PE but currently requiring to much oxygen to safely go down for CT PE. Will Procced wtih Echo, stop IVF and start Lasix. Until CT PE can be preformed he was placed back on therapeutic lovenox.
[2020-09-21 12:03] LABS: Glucose,Whole Blood 136 mg/dL (75-99)
[2020-09-21] MEDS ORDERED: SODIUM CHLORIDE 0.9% IV ONE (12:58)
[2020-09-21] MEDS ORDERED: TOCILIZUMAB IV ONE (12:58)
--- NOTE | 2020-09-21 13:34 | ECHOF ---
Referral Reason:increased O2 needs, improved labs imaging MEASUREMENTS -------- HEIGHT: 188.0 cm WEIGHT: 88.5 kg BP: 134/78 RVIDd: 2.6 cm (< 3.3) IVSd: 1.3 cm (0.6 - 1.1) LVIDd: 5.6 cm (3.9 - 5.3) LVPWd: 1.3 cm (0.6 - 1.1) IVSs: 1.7 cm LVIDs: 4.5 cm LVPWs: 1.8 cm LA Diam: 3.0 cm (2.7 - 3.8) Ao Diam: 3.6 cm (2.0 - 3.7) AV Cusp: 2.0 cm (1.5 - 2.6) MV EXCURSION: 14.273 mm (> 18.000) MV EF SLOPE: 16 mm/s (70 - 150) EPSS: 2.2 cm MV E Jayden: 0.66 m/s MV DecT: 317 ms MV A Jayden: 1.24 m/s MV E/A Ratio: 0.54 FINDINGS -------- Sinus rhythm. This was a technically adequate study. The left ventricular size is normal. There is mild concentric left ventricular hypertrophy. Overa ll left ventricular systolic function is severely impaired with, an EF between 25 - 30 %. The right ventricle is normal in size. The left atrium is normal in size. The right atrium is normal in size. 3 ml of Lumason was utilized for enhancement of images. No thrombus noted with lumason Interatrial and interventricular septum intact. There is mild aortic valve sclerosis. The mitral valve leaflets are mildly thickened. Mild mitral annular calcification present. The tricuspid valve appears structurally normal. Trace/mild (physiologic) pulmonic regurgitation. The aortic root size is normal. Normal inferior vena cava with normal inspiratory collapse consistent with estimated right atrial pre ssure of 5 mmHg. There is no pericardial effusion. CONCLUSIONS -------- 1. The left ventricular size is normal. 2. There is mild concentric left ventricular hypertrophy. 3. Overall left ventricular systolic function is severely impaired with, an EF between 25 - 30 %. 4. 3 ml of Lumason was utilized for enhancement of images. 5. No thrombus noted with lumason 6. There is mild aortic valve sclerosis. 7. The mitral valve leaflets are mildly thickened. 8. Mild mitral annular calcification present. 9. Trace/mild (physiologic) pulmonic regurgitation. 10. There is no pericardial effusion. BATTERY SERVICE TECHNICIAN: Rayna Malin RDCS
--- NOTE | 2020-09-21 14:15 | P.PN ---
Subjective Progress Note Date: 09/21/20 Principal diagnosis: CoVID 19 pneumonia 69-year-old male, who presented to the emergency department, on 09/17/2020. The patient apparently came in with complaints of shortness of breath, fever, and recently being tested positive for COVID 19. The patient hasn't been feeling we ll for a couple weeks now, and about 5 or 6 days ago, was tested here at this hospital and was positive for coronavirus. The patient was not having major issues at that time, and therefore was discharged home. More recently, over the last couple of days, he states that he is becoming more more symptomatic. He had muscle aches, poor appetite, loss of taste, just feeling fatigued, and shortness of breath on exertion. No fever or chills. He wasn't coughing up any phlegm. His cough is mostly nonproductive. He denied any chest pain or chest discomfort. There is no nausea, vomiting, diarrhea, or abdominal pain. A chest x-ray was done and showed bilateral infiltrates, and, his white count was 4.5, hemoglobin 13, hematocrit 41.5, and platelet count 312,000. D-dimer was 32.24, PaO2 was 64, with a PaCO2 of 28 and a pH is 7.49. Sodium was 135, potassium 4.3, chlorides 100, CO2 23, anion gap 12, BUN 56, and creatinine 1.77. Lactic acid was 2.1, LDH was 2084, and C-reactive protein was 66.4. Pro-calcitonin was 0.74. The patient is a lifelong nonsmoker, and his only major medical problem was that of diabetes. He is status post right BKA. Progress note dated 09/19/2020. This is a 69-year-old male that we saw in consultation yesterday. He presented to the emergency department on September 17, complaining of shortness of breath, fever, and recently been tested positive for COVID 19. Currently, the patient's on O2 at about 7-8 L/m high flow. He is feeling a bit better today. To look at the patient, he appears in no distress. He's not having any conversational dyspnea, audible wheezing, use of accessory muscles. He looks very comfortable. I told him we could not discharge him from the hospital till as oxygen requirements are down below 5 L/m. His only other medical problem is that of diabetes. He is a lifelong nonsmoker. White count is 5.1, hemoglobin 11.9, hematocrit 37.5, platelet count 181,000, sodium 137, potassium 3.7, chloride 107, CO2 24, anion gap 6, BUN 60, and creatinine 1.60. Patient is seen today 09/20/2020 in follow-up on the selective care unit. He is currently sitting up in a chair at the bedside. Awake and alert in no acute distress. Breathing better today compared to yesterday. Still requiring 15 L high flow nasal cannula to maintain O2 saturation in the 90s. He's been afebrile. He has received 1 unit of convalescent plasma. Blood cultures reveal no growth. White count 4.4. Hemoglobin 11.8. Platelets 149. Lymphocytes 0.3. Sodium 139. Potassium 3.8. Creatinine 1.41. He remains on dexamethasone, Lovenox, vitamin supplements. The patient is seen today 09/21/2020 in follow-up on the selective care unit. Currently resting fairly comfortably in bed. Last evening he started having increasing shortness of breath. He is now on 15 L high phone nasal cannula in addition to a nonrebreather mask to maintain O2 saturation in the low 90s. He is afebrile. Hemodynamically stable. Chest x-ray reveals stable patchy bilate ral infiltrates. Doppler of the left lower extremity was negative for DVT. Echocardiogram reveals severely impaired left ventricular systolic function with ejection fraction 25-30%. No evidence of thrombus. Blood culture reveals no growth. White count 6.8. Hemoglobin 12.6. D-dimer 6.29. Sodium 139. Potassium 3.8. Creatinine 1.28. LDH 635. C-reactive protein 19.9. He remains on Lovenox, dexamethasone, vitamin supplements. Objective - Vital Signs Vital signs: Vital Signs Temp 98 F 09/21/20 08:00 Pulse 60 09/21/20 08:00 Resp 18 09/21/20 11:07 BP 148/75 09/21/20 11:07 Pulse Ox 94 L 09/21/20 11:07 Intake & Output 09/20/20 09/21/20 09/21/20 18:59 06:59 18:59 Intake Total 480 100 240 Output Total 400 Balance 480 100 -160 Weight 88.5 kg Intake: Oral 480 100 240 Output: Urine 400 Other: Voiding Method Toilet Toilet Toilet # Voids 1 1 # Bowel Movements 0 - Exam GENERAL EXAM: Alert, pleasant 69-year-old gentleman, and 15 L high flow nasal cannula in addition to a nonrebreather mask, comfortable in no apparent distress. HEAD: Normocephalic. EYES: Normal reaction of pupils, equal size. NOSE: Clear with pink turbinates. THROAT: No erythema or exudates. NECK: No masses, no JVD. CHEST: No chest wall deformity. LUNGS: Equal air entry with crackles in the bilateral posterior bases. CVS: S1 and S2 normal with an audible murmur, regular rhythm. ABDOMEN: No hepatosplenomegaly, normal bowel sounds, no guarding or rigidity. SPINE: No scoliosis or deformity SKIN: No rashes CENTRAL NERVOUS SYSTEM: No focal deficits, tone is normal in all 4 extremities. EXTREMITIES: There is no peripheral edema. No clubbing, no cyanosis. Peripheral pulses are intact. - Labs CBC & Chem 7: 09/21/20 08:30 09/21/20 08:30 Labs: Abnormal Lab Results - Last 24 Hours (Table) 09/20/20 09/20/20 09/21/20 Range/Units 16:55 20:13 06:06 RBC (4.30-5.90) m/uL Hgb (13.0-17.5) gm/dL MCV (80.0-100.0) fL MCH (25.0-35.0) pg D-Dimer (<0.60) mg/L FEU Chloride (98-107) mmol/L Carbon Dioxide (22-30) mmol/L BUN (9-20) mg/dL Creatinine (0.66-1.25) mg/dL Glucose (74-99) mg/dL POC Glucose (mg/dL) 244 H 361 H 128 H (75-99) mg/dL AST (17-59) U/L Lactate Dehydrogenase (313-618) U/L C-Reactive Protein (<10.0) mg/L Total Protein (6.3-8.2) g/dL Albumin (3.5-5.0) g/dL 09/21/20 09/21/20 09/21/20 Range/Units 08:30 08:30 08:30 RBC 6.32 H (4.30-5.90) m/uL Hgb 12.6 L (13.0-17.5) gm/dL MCV 63.6 L (80.0-100.0) fL MCH 20.0 L (25.0-35.0) pg D-Dimer 6.29 H (<0.60) mg/L FEU Chloride 110 H (98-107) mmol/L Carbon Dioxide 20 L (22-30) mmol/L BUN 48 H (9-20) mg/dL Creatinine 1.28 H (0.66-1.25) mg/dL Glucose 130 H (74-99) mg/dL POC Glucose (mg/dL) (75-99) mg/dL AST 64 H (17-59) U/L Lactate Dehydrogenase 1635 H (313-618) U/L C-Reactive Protein 19.9 H (<10.0) mg/L Total Protein 6.0 L (6.3-8.2) g/dL Albumin 2.9 L (3.5-5.0) g/dL 09/21/20 Range/Units 12:02 RBC (4.30-5.90) m/uL Hgb (13.0-17.5) gm/dL MCV (80.0-100.0) fL MCH (25.0-35.0) pg D-Dimer (<0.60) mg/L FEU Chloride (98-107) mmol/L Carbon Dioxide (22-30) mmol/L BUN (9-20) mg/dL Creatinine (0.66-1.25) mg/dL Glucose (74-99) mg/dL POC Glucose (mg/dL) 136 H (75-99) mg/dL AST (17-59) U/L Lactate Dehydrogenase (313-618) U/L C-Reactive Protein (<10.0) mg/L Total Protein (6.3-8.2) g/dL Albumin (3.5-5.0) g/dL Microbiology - Last 24 Hours (Table) 09/17/20 19:45 Blood Culture - Preliminary Blood No Growth after 72 hours 09/17/20 19:53 Blood Culture - Preliminary Blood No Growth after 72 hours Assessment and Plan Assessment: 1 Acute hypoxemic respiratory failure secondary to CoVID 19 pneumonia. Outside the window for Remdesivir 2 Severe left ventricular systolic function with ejection fraction 25-30% 3 Diabetes mellitus 4 Lifelong nonsmoker 5 History of right below the knee amputation Plan: The patient was seen and evaluated by Dr. Marie The patient's oxygen requirements have worsened despite improving inflammatory markers May be considered a candidate for tocilizumab Continue Decadron, Lovenox, vitamin supplement Echocardiogram reviewed Initiate IV diuretics Repeat inflammatory markers in the a.m. We will continue to follow I, the cosigning physician, performed a history & physical examination of the patient. Lungs sounds with crackles in the posterior bases. Maintaining good O2 saturations in the 90s on 15 L high flow nasal cannula in addition to a nonrebr eather mask. I discussed the assessment and plan of care with my nurse practitioner, Nathalia Ruvalcbaa. I attest to the above note as dictated by her.
[2020-09-21] MEDS ORDERED: TOCILIZUMAB 400 MG in SODIUM CHLORIDE 0.9% 80 ML IV ONE ×2 (16:00→22:00)
[2020-09-21 17:10] LABS: Glucose,Whole Blood 334 mg/dL (75-99)
[2020-09-21] MEDS: FUROSEMIDE 10 MG/ML 4 ML VIAL IV SCH (20:11)
[2020-09-21] MEDS: ENOXAPARIN 40 MG/0.4 ML SYRINGE SQ SCH (20:11)
[2020-09-21 20:31] LABS: Glucose,Whole Blood 355 mg/dL (75-99)
[2020-09-21] MEDS: INSULIN DETEMIR (LEVEMIR) 100 UNIT/ML SYR SQ SCH (21:20)
[2020-09-22 01:38] LABS: Albumin 3.3 g/dL (3.5-5.0); Calcium 8.9 mg/dL (8.4-10.2); Magnesium 1.5 mg/dL (1.6-2.3); Potassium 3.5 mmol/L (3.5-5.1); Total Protein 6.4 g/dL (6.3-8.2)
[2020-09-22] MEDS ORDERED: Potassium Replacement Protocol 1 EACH MISC MISCELLANE PRN (02:11)
[2020-09-22] MEDS ORDERED: Magnesium Replacement Protocol 1 EACH MISC MISCELLANE PRN (02:13)
[2020-09-22] MEDS: MAGNESIUM SULFATE-D5W PMX 1 GM in DEXTROSE/WATER 1 100ML.BAG IVPB SCH ×2 (02:30→03:38)
[2020-09-22] MEDS: METOPROLOL SUCCINATE (ER) 25 MG TAB.ER.24H PO SCH ×2 (02:31→08:42)
[2020-09-22] MEDS: POTASSIUM CHLORIDE ER 20 MEQ TAB.ER PO SCH ×2 (02:31→03:38)
[2020-09-22 06:40] LABS: Glucose,Whole Blood 133 mg/dL (75-99)
[2020-09-22] MEDS: INSULIN ASPART (NovoLOG) 100 UNIT/ML VIAL SQ SCH ×6 (06:46→20:28)
[2020-09-22] MEDS: ALBUTEROL HFA INHALER INHALATION PRN ×4 (07:30→19:57)
[2020-09-22] MEDS ORDERED: MAGNESIUM SULFATE-D5W PMX 1 GM in DEXTROSE/WATER 1 100ML.BAG IVPB SCH (07:30)
[2020-09-22 08:04] LABS: HCT 42.7 % (39.0-53.0); HGB 13.7 gm/dL (13.0-17.5); Hypochromasia Slight; MCH 20.2 pg (25.0-35.0); Mean Platelet Volume 7.1; Microcytosis Marked; Platelet Count 165 k/uL (150-450); Poikilocytosis Slight; RBC 6.78 m/uL (4.30-5.90); RDW 14.4 % (11.5-15.5); WBC 9.1 k/uL (3.8-10.6)
[2020-09-22 08:05] LABS: C Reactive Protein 33.7 mg/L (<10.0); Calcium 8.8 mg/dL (8.4-10.2); Magnesium 2.1 mg/dL (1.6-2.3); Potassium 3.5 mmol/L (3.5-5.1)
[2020-09-22] MEDS: ZINC SULFATE 220 MG CAP PO SCH (08:29)
[2020-09-22] MEDS: dexAMETHasone 2 MG TAB PO SCH (08:29)
[2020-09-22] MEDS: ASCORBIC ACID 500 MG TAB PO SCH (08:29)
[2020-09-22] MEDS: ENOXAPARIN 40 MG/0.4 ML SYRINGE SQ SCH ×2 (08:30→20:28)
[2020-09-22] MEDS: FUROSEMIDE 10 MG/ML 4 ML VIAL IV SCH ×2 (08:30→20:28)
[2020-09-22] MEDS: CHOLECALCIFEROL 25 MCG (1000 IU) TABLET PO SCH (08:30)
--- NOTE | 2020-09-22 09:33 | P.PN ---
<Paul Vieyra - Last Filed: 09/22/20 09:03> Subjective Progress Note Date: 09/22/20 Principal diagnosis: Covid Pneumonitis with acute hypoxemic respiratory failure Hospital course: Patient is a 69-year-old male with a past medical history of type 2 insulin- dependent diabetes mellitus and right BKA. Patient was diagnosed with Covid 19 virus infection on 09/12/20 and continued to have increasing shortness of breath and fatigue accompanied by muscle aches, poor appetite, and loss of taste resulting in him coming to the hospital for evalution.Upon arrival he was found to be in acute respiratory failure with hypoxia with SPO2 78% on room air requi ring BIPAP with supplemental oxygenation. Lab findings revealed an elevated d- dimer of 32.24; respiratory alkalosis with pCO2 of 28, PaO2 of 64, and pH of 7.49; elevated lactate of 2.1; ferritin of 1679.6; LDH 2084; troponin 0.146; CRP is 66.4; a KCI with BUN of 56, creatinine 1.77, and GFR of 38; and pro- calcitonin of 0.74. As a result, Mr. Stockton was admitted to the hospital on 09/17/20 for acute respiratory failure with hypoxia resulting from Covid 19 virus infection with pneumonitis. Upon admission and chest x-ray was positive for bilateral multifocal pneumonia. His EKG revealed normal sinus rhythm at 83 bpm with a prolonged QT/QTC of 422/495 ms, no T-wave or ST abnormalities noted. P von has been on Decadron 6 mg daily with today being day 6 of 10. Patient also being treated with vitamin C, vitamin D, and zinc. Therapeutic anticoagulation being provided with Lovenox 80 mg twice daily. Patient continues to be in hypoxic respiratory failure on NRB 15L and high flow NC at 15 L via high flow nasal cannula at this time with SPO2 91-92%. Repeat chest x-ray completed 09/21/20 showing stable patchy bilateral infiltrates with hyperinflation. Venous Doppler of left lower extremity negative for DVTs. Echocardiogram revealed mild concentric LVH with a severely impaired ejection f raction of 25-30%. Order placed for Lasix 40 mg twice a day, EKG, and consult to cardiology. Pulmonology and cardiology following along with our hospitalist team. Physical exam: 09/22/20: Patient was seen and fully evaluated at the bedside. He was resting high fowlers in bed. He reports feeling the same as yesterday, no better or worse. However he did report increased SOB with use of urinal secondary to diuresis with lasix. Discussed this with RN and verbal order placed for condom cath at this time. Patient remains on 15 L high flow nasal cannula along with 15 L NRB mask with SpO2 maintaining at 92%. Attempts for reportedly made to remove nonrebreather and refer back to 15 L high flow nasal cannula, however patient did not tolerate the attempts at weaning oxygen and reportedly desaturated down into the 70s. Patient was started on Toclilizumab yesterday evening. He was also found to have a asymptomatic nonsustained run of V. tach and was found to have moderate hypomagnesemia with magnesium of 1.5, this was replaced and currently magnesium levels 2.1. Cardiology also started patient on metoprolol at that time. Morning labs obtained. CRP did increase to 33.7 from previous 19.9, although LDH and d-dimer continue to decrease. LDH currently 1544 from initial 2084 and d-dimer 4.18 from initial 32.24. Renal function showing BUN 53, creatinine 1.47, and GFR of 48. Patient continues to deny having any chest pain, palpitations, dizziness, or lightheadedness. Only co mplaint is continued fatigue and shortness of breath with exertion. General: non toxic, no distress, appears at stated age Derm: warm, dry Head: atraumatic, normocephalic, symmetric Eyes: EOMI, no lid lag, anicteric sclera Mouth: no lip lesion, mucus membranes moist Cardiovascular: S1S2 reg, no murmur, positive posterior tibial pulses bilaterally, no lower extremity edema. Lungs: Respirations even, regular, and unlabored on 15 L O2 via high flow nasal cannula along with 15 L NRB mask. Upon auscultation of lungs, lung sounds seem to be improving. No rhonchi heard today, however patient did have continued noted crackles at bilateral bases. No accessory muscle usage. Patient continues to be able to speak in full sentences without gasping for air but as stated above, remains on 15 and 15. Abdominal: Soft, nontender to palpation, no guarding, and no appreciable organomegaly. Ext: No gross muscle atrophy, no edema, no contractures, patient has right BKA. Neuro: Speech clear, GCS 15. CN II-XII grossly intact, no focal neuro deficits Psych: Alert and oriented to person, place, time, and situation. Pleasant and appropriate affect. Assessment and Plan of Care: Covid pneumonitis resulting in acute hypoxic respiratory failure -Patient remains on 15 L high flow nasal cannula along with 15 L NRB mask with SpO2 maintaining at 92%. Wean once patient tolerates. -Patient was started on Toclilizumab yesterday evening. -CRP did increase to 33.7 from previous 19.9, although LDH and d-dimer continue to decrease. LDH currently 1544 from initial 2084 and d-dimer 4.18 from initial 32.24. -Continue Decadron 6 mg daily, today is day 6 . -Continue vitamin C, vitamin D, and zinc. -Continue MDIs as needed. -Patient received convalescent plasma on admission. -Pulmonology is following, appreciate further recommendations. -Continue therapeutic anticoagulation with Lovenox.. Severely impaired left ventricular systolic function with an ejection fraction of 25-30% -Cardiology consulted, appreciate further recommendations. -Patient placed on Lasix 40 mg twice a day. -Strict I's and O's, urine output 4600 mL's over the past 24 hours. -Continuous telemetry monitoring -Continue metoprolol 25 mg daily. Acute kidney injury, stable -BMP revealing continued improvement in renal function with BUN 53, creatinine 1.47, and GFR of 48. -We will continue to monitor. Insulin-dependent diabetes mellitus type II -Glycemic protocol with NovoLog sliding scale along with Levemir 15 units nightly. -Heart healthy carb consistent diet. Elevated troponin, d-dimer, and inflammatory markers most likely resulting from Covid 19 virus infection -Patient asymptomatic denying having any chest pain, palpitations or further cardiac complaints. -EKG revealed normal sinus rhythm at 83 bpm with a prolonged QT/QTC of 422/495 ms, no T-wave or ST abnormalities noted. -Continuous telemetry monitoring. -Continue therapeutic anticoagulation with Lovenox. Thrombocytopenia, resolved. CODE STATUS: Full code DVT prophylaxis: Therapeutic Lovenox Discussed with: Patient and RN Anticipated discharge date: Clinical course to determine Anticipated discharge place: Home with home care A total of 45 minutes was spent on the care of this complex patient more than 50% of the time was spent in counseling and care coordination. Objective - Vital Signs Vital signs: Vital Signs Temp 97.6 F 09/22/20 08:25 Pulse 79 09/22/20 08:25 Resp 20 09/22/20 08:25 BP 121/69 09/22/20 08:25 Pulse Ox 94 L 09/22/20 08:25 Intake & Output 09/21/20 09/22/20 09/22/20 18:59 06:59 18:59 Intake Total 980 0 Output Total 2950 1650 Balance -1970 -1649 0 Weight 86 kg Intake: Oral 980 0 Output: Urine 2950 1650 Other: Voiding Method Toilet Urinal - Labs CBC & Chem 7: 09/22/20 06:53 09/22/20 06:53 Labs: Abnormal Lab Results - Last 24 Hours (Table) 09/21/20 09/21/20 09/21/20 Range/Units 08:30 12:02 17:09 RBC (4.30-5.90) m/uL MCV (80.0-100.0) fL MCH (25.0-35.0) pg D-Dimer (<0.60) mg/L FEU Chloride 110 H (98-107) mmol/L Carbon Dioxide 20 L (22-30) mmol/L BUN 48 H (9-20) mg/dL Creatinine 1.28 H (0.66-1.25) mg/dL Glucose 130 H (74-99) mg/dL POC Glucose (mg/dL) 136 H 334 H (75-99) mg/dL Magnesium (1.6-2.3) mg/dL AST 64 H (17-59) U/L Lactate Dehydrogenase 1635 H (313-618) U/L C-Reactive Protein 19.9 H (<10.0) mg/L Total Protein 6.0 L (6.3-8.2) g/dL Albumin 2.9 L (3.5-5.0) g/dL 09/21/20 09/22/20 09/22/20 Range/Units 20:30 00:51 06:38 RBC (4.30-5.90) m/uL MCV (80.0-100.0) fL MCH (25.0-35.0) pg D-Dimer (<0.60) mg/L FEU Chloride (98-107) mmol/L Carbon Dioxide (22-30) mmol/L BUN 54 H (9-20) mg/dL Creatinine 1.51 H (0.66-1.25) mg/dL Glucose 141 H (74-99) mg/dL POC Glucose (mg/dL) 355 H 133 H (75-99) mg/dL Magnesium 1.5 L (1.6-2.3) mg/dL AST (17-59) U/L Lactate Dehydrogenase (313-618) U/L C-Reactive Protein (<10.0) mg/L Total Protein (6.3-8.2) g/dL Albumin 3.3 L (3.5-5.0) g/dL 09/22/20 09/22/20 09/22/20 Range/Units 06:53 06:53 06:53 RBC 6.78 H (4.30-5.90) m/uL MCV 63.0 L (80.0-100.0) fL MCH 20.2 L (25.0-35.0) pg D-Dimer 4.18 H (<0.60) mg/L FEU Chloride (98-107) mmol/L Carbon Dioxide (22-30) mmol/L BUN 53 H (9-20) mg/dL Creatinine 1.47 H (0.66-1.25) mg/dL Glucose 131 H (74-99) mg/dL POC Glucose (mg/dL) (75-99) mg/dL Magnesium (1.6-2.3) mg/dL AST (17-59) U/L Lactate Dehydrogenase 1544 H (313-618) U/L C-Reactive Protein 33.7 H (<10.0) mg/L Total Protein (6.3-8.2) g/dL Albumin (3.5-5.0) g/dL Microbiology - Last 24 Hours (Table) 09/17/20 19:53 Blood Culture - Preliminary Blood No Growth after 96 hours 09/17/20 19:45 Blood Culture - Preliminary Blood No Growth after 96 hours <Mildred Melton - Last Filed: 09/22/20 11:13> Objective - Vital Signs Vital signs: Vital Signs Temp 97.6 F 09/22/20 08:25 Pulse 79 09/22/20 08:25 Resp 20 09/22/20 08:25 BP 121/69 09/22/20 08:25 Pulse Ox 94 L 09/22/20 08:25 Intake & Output 09/21/20 09/22/20 09/22/20 18:59 06:59 18:59 Intake Total 980 0 Output Total 2950 1650 Balance -1969 -1649 0 Weight 86 kg Intake: Oral 980 0 Output: Urine 2950 1650 Other: Voiding Method Toilet Urinal External Catheter - Labs CBC & Chem 7: 09/22/20 06:53 09/22/20 06:53 Labs: Abnormal Lab Results - Last 24 Hours (Table) 09/21/20 09/21/20 09/21/20 Range/Units 12:02 17:09 20:30 RBC (4.30-5.90) m/uL MCV (80.0-100.0) fL MCH (25.0-35.0) pg D-Dimer (<0.60) mg/L FEU BUN (9-20) mg/dL Creatinine (0.66-1.25) mg/dL Glucose (74-99) mg/dL POC Glucose (mg/dL) 136 H 334 H 355 H (75-99) mg/dL Magnesium (1.6-2.3) mg/dL Lactate Dehydrogenase (313-618) U/L C-Reactive Protein (<10.0) mg/L Albumin (3.5-5.0) g/dL 09/22/20 09/22/20 09/22/20 Range/Units 00:51 06:38 06:53 RBC (4.30-5.90) m/uL MCV (80.0-100.0) fL MCH (25.0-35.0) pg D-Dimer 4.18 H (<0.60) mg/L FEU BUN 54 H (9-20) mg/dL Creatinine 1.51 H (0.66-1.25) mg/dL Glucose 141 H (74-99) mg/dL POC Glucose (mg/dL) 133 H (75-99) mg/dL Magnesium 1.5 L (1.6-2.3) mg/dL Lactate Dehydrogenase (313-618) U/L C-Reactive Protein (<10.0) mg/L Albumin 3.3 L (3.5-5.0) g/dL 09/22/20 09/22/20 Range/Units 06:53 06:53 RBC 6.78 H (4.30-5.90) m/uL MCV 63.0 L (80.0-100.0) fL MCH 20.2 L (25.0-35.0) pg D-Dimer (<0.60) mg/L FEU BUN 53 H (9-20) mg/dL Creatinine 1.47 H (0.66-1.25) mg/dL Glucose 131 H (74-99) mg/dL POC Glucose (mg/dL) (75-99) mg/dL Magnesium (1.6-2.3) mg/dL Lactate Dehydrogenase 1544 H (313-618) U/L C-Reactive Protein 33.7 H (<10.0) mg/L Albumin (3.5-5.0) g/dL Microbiology - Last 24 Hours (Table) 09/17/20 19:53 Blood Culture - Preliminary Blood No Growth after 96 hours 09/17/20 19:45 Blood Culture - Preliminary Blood No Growth after 96 hours Assessment and Plan Assessment: Patient seen and examined independently. Patient was also seen by Paul Vieyra NP and case was discussed. I am in agreement with subjective, physical exam, assessment and plan as written above and amended below. He reports that he wants to go home but realizes he is still too ill to go home. He is still getting significantly winded and tired when he has to get up to go to the bathroom. He denies any current nausea or vomiting. General: non toxic, no distress, appears at stated age Derm: warm, dry Head: atraumatic, normocephalic, symmetric Eyes: EOMI, no lid lag, anicteric sclera Mouth: no lip lesion, mucus membranes moist Cardiovascular: S1S2 reg, no murmur Lungs: Rhonchi bilateral bases , no accessory muscle use Abdominal: soft, nontender to palpation, no guarding, no appreciable organomegaly Ext: no gross muscle atrophy, no edema, no contractures, right BKA Neuro: CN II-XI grossly intact, no focal neuro deficits Psych: Alert, oriented, appropriate affect Discussed with patient's results of echocardiogram and need for medications and follow-up. Blood sugars reviewed. A.m. fasting blood glucose is well controlled, however he is having postprandial hyperglycemia at both lunch and dinner. We'll add fixed dose insulin in addition to his sliding scale and Levemir.
[2020-09-22] MEDS ORDERED: TOCILIZUMAB 400 MG in SODIUM CHLORIDE 0.9% 80 ML IV ONE (10:00)
[2020-09-22 12:10] LABS: Glucose,Whole Blood 151 mg/dL (75-99)
--- NOTE | 2020-09-22 14:11 | P.CRDCN ---
History of Present Illness Consult date: 09/22/20 History of present illness: CHIEF COMPLAINT: Ejection fraction 25% HISTORY OF PRESENT ILLNESS: This is a 69-year old male with a past medical history significant for diabetes mellitus and right BKA. 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 We have been asked to see the patient in consultation for decreased ejection fraction. Patient is admitted to the hospital secondary to Covid 19. Echocardiogram completed revealed ejection fraction 25-30%. There is no previous echocardiogram in the computer for comparison. Patient is currently on 15 L nonrebreather. Blood pressure 122/68. Heart rate is in the 80s. He is afebrile. DIAGNOSTICS: EKG reveals sinus mechanism. Heart rate 83. Chest xray stable patchy bilateral infiltrates Laboratory data: WBC 9.1. Hemoglobin 13.7. Platelet count 165. Sodium 137. Potassium 3.5. BUN 53. Creatinine 1.47. Magnesium 2.1. Current home cardiac medications include none REVIEW OF SYSTEMS: Thorough review of systems not completed secondary to limited evaluation/examination and due to Covid19 PHYSICAL EXAM: Thorough physical exam not completed secondary to limited evaluation/examination and due to Covid19 ASSESSMENT: Covid 19 Acute hypoxic respiratory failure Cardiomyopathy, may be secondary to Covid, cannot rule out underlying coronary disease Acute kidney injury, unknown if patient has CKD Diabetes mellitus History of right BKA PLAN: Continue current dose of Lasix Continue current dose of metoprolol No KHOA/ARB at this time secondary to kidney function Repeat BMP in AM Daily weights Accurate I&O Patient will require cardiac catheterization when he is medically stable and recovered from his Covid infection Further recommendations pending patient's course Nurse practitioner note has been reviewed by physician. Signing provider agrees with the documented findings, assessment, and plan of care. Past Medical History Past Medical History: Diabetes Mellitus History of Any Multi-Drug Resistant Organisms: None Reported Past Surgical History: Orthopedic Surgery Additional Past Surgical History / Comment(s): rt bka Past Anesthesia/Blood Transfusion Reactions: No Reported Reaction Past Psychological History: No Psychological Hx Reported Smoking Status: Never smoker Past Alcohol Use History: None Reported Past Drug Use History: None Reported - Past Family History family Family Medical History: No Reported History Medications and Allergies Home Medications Medication Instructions Recorded Confirmed Type INSULIN ASPART (NovoLOG) [NovoLOG 4 unit SQ AC-BRKFST 09/12/20 09/17/20 History (formulary)] INSULIN ASPART (NovoLOG) [NovoLOG 5 unit SQ AC-BID 09/12/20 09/17/20 History (formulary)] Insulin Glargine [Lantus] 15 unit SQ HS 09/12/20 09/17/20 History Allergies Allergy/AdvReac Type Severity Reaction Status Date / Time No Known Allergies Allergy Verified 09/17/20 19:46 Physical Exam Vitals: Vital Signs Temp Pulse Resp BP Pulse Ox 09/22/20 11:46 97.6 F 81 122/68 97 09/22/20 08:25 97.6 F 79 20 121/69 94 L 09/22/20 08:00 79 20 09/22/20 04:00 97.6 F 73 18 143/69 92 L 09/22/20 00:00 97.6 F 79 20 139/55 90 L 09/21/20 20:15 22 91 L 09/21/20 20:00 97.6 F 78 22 140/73 81 L 09/21/20 16:00 87 18 145/85 94 L Intake and Output 09/21/20 09/22/20 09/22/20 22:59 06:59 14:59 Intake Total 240 0 Output Total 3000 1200 300 Balance -2760 -1200 -300 Intake: Oral 240 0 Output: Urine 3000 1200 300 Other: Voiding Method Urinal Urinal External Catheter Weight 86 kg Results 09/22/20 06:53 09/22/20 06:53 Cardiac Enzymes 09/22/20 09/22/20 Range/Units 00:51 06:53 AST 58 (17-59) U/L Lactate Dehydrogenase 1544 H (313-618) U/L CBC 09/22/20 Range/Units 06:53 WBC 9.1 (3.8-10.6) k/uL RBC 6.78 H (4.30-5.90) m/uL Hgb 13.7 (13.0-17.5) gm/dL Hct 42.7 (39.0-53.0) % Plt Count 165 (150-450) k/uL Comprehensive Metabolic Panel 09/22/20 09/22/20 Range/Units 00:51 06:53 Sodium 137 137 (137-145) mmol/L Potassium 3.5 3.5 (3.5-5.1) mmol/L Chloride 101 99 (98-107) mmol/L Carbon Dioxide 29 29 (22-30) mmol/L BUN 54 H 53 H (9-20) mg/dL Creatinine 1.51 H 1.47 H (0.66-1.25) mg/dL Glucose 141 H 131 H (74-99) mg/dL Calcium 8.9 8.8 (8.4-10.2) mg/dL AST 58 (17-59) U/L ALT 47 (4-49) U/L Alkaline Phosphatase 76 (38-126) U/L Total Protein 6.4 (6.3-8.2) g/dL Albumin 3.3 L (3.5-5.0) g/dL Current Medications Generic Name Dose Route Start Last Admin Trade Name Freq PRN Reason Stop Dose Admin Acetaminophen 650 mg 09/17/20 21:22 Acetaminophen Tab 325 Mg Tab PO Q4HR PRN Fever and/ or Pain Albuterol Sulfate 2 puff 09/18/20 12:33 09/22/20 11:19 Albuterol Hfa Inhaler INHALATION 2 puff RT-QID PRN Administration Shortness Of Breath Or Wheezing Ascorbic Acid 1,000 mg 09/19/20 09:00 09/22/20 08:29 Ascorbic Acid 500 Mg Tab PO 1,000 mg DAILY ARNOLDO Administration Cholecalciferol 125 mcg 09/19/20 09:00 09/22/20 08:30 Cholecalciferol 25 Mcg (1000 Iu) Tablet PO 125 mcg DAILY ARNOLDO Administration Dexamethasone 6 mg 09/18/20 09:00 09/22/20 08:29 Dexamethasone 2 Mg Tab PO 09/26/20 09:01 6 mg DAILY ARNOLDO Administration Enoxaparin Sodium 40 mg 09/21/20 21:00 09/22/20 08:30 Enoxaparin 40 Mg/0.4 Ml Syringe SQ 40 mg BID ARNOLDO Administration Furosemide 40 mg 09/21/20 21:00 09/22/20 08:30 Furosemide 10 Mg/Ml 4 Ml Vial IV 40 mg Q12HR ARNOLDO Administration Insulin Aspart 0 unit 09/17/20 21:20 09/22/20 12:30 Insulin Aspart (Novolog) 100 Unit/Ml Vial SQ 2 unit ACHS ARNOLDO Administration Protocol Insulin Aspart 2 unit 09/22/20 12:30 09/22/20 12:30 Insulin Aspart (Novolog) 100 Unit/Ml Vial SQ 2 unit AC-TID ARNOLDO Administration Insulin Detemir 15 unit 09/17/20 21:30 09/21/20 21:20 Insulin Detemir (Levemir) 100 Unit/Ml Syr SQ 15 unit HS ARNOLDO Administration Metoprolol Succinate 25 mg 09/22/20 02:14 09/22/20 08:42 Metoprolol Succinate (Er) 25 Mg Tab.Er.24h PO 25 mg DAILY ARNOLDO Administration Miscellaneous Information 1 each 09/22/20 02:11 Potassium Replacement Protocol 1 Each Misc MISCELLANE DAILY PRN Per Protocol Protocol Miscellaneous Information 1 each 09/22/20 02:13 Magnesium Replacement Protocol 1 Each Misc MISCELLANE DAILY PRN Per Protocol Protocol Naloxone HCl 0.2 mg 09/17/20 21:05 Naloxone 0.4 Mg/Ml 1 Ml Vial IV Q2M PRN Opioid Reversal Zinc Sulfate 220 mg 09/19/20 09:00 09/22/20 08:29 Zinc Sulfate 220 Mg Cap PO 220 mg DAILY ARNOLDO Administration Intake and Output 09/21/20 09/22/20 09/22/20 22:59 06:59 14:59 Intake Total 240 0 Output Total 3000 1200 300 Balance -2760 -1200 -300 Intake: Oral 240 0 Output: Urine 3000 1200 300 Other: Voiding Method Urinal Urinal External Catheter Weight 86 kg 09/22/20 06:53 09/22/20 06:53
--- NOTE | 2020-09-22 15:50 | P.PN ---
Subjective Progress Note Date: 09/22/20 Principal diagnosis: CoVID 19 pneumonia 69-year-old male, who presented to the emergency department, on 09/17/2020. The patient apparently came in with complaints of shortness of breath, fever, and recently being tested positive for COVID 19. The patient hasn't been feeling we ll for a couple weeks now, and about 5 or 6 days ago, was tested here at this hospital and was positive for coronavirus. The patient was not having major issues at that time, and therefore was discharged home. More recently, over the last couple of days, he states that he is becoming more more symptomatic. He had muscle aches, poor appetite, loss of taste, just feeling fatigued, and shortness of breath on exertion. No fever or chills. He wasn't coughing up any phlegm. His cough is mostly nonproductive. He denied any chest pain or chest discomfort. There is no nausea, vomiting, diarrhea, or abdominal pain. A chest x-ray was done and showed bilateral infiltrates, and, his white count was 4.5, hemoglobin 13, hematocrit 41.5, and platelet count 312,000. D-dimer was 32.24, PaO2 was 64, with a PaCO2 of 28 and a pH is 7.49. Sodium was 135, potassium 4.3, chlorides 100, CO2 23, anion gap 12, BUN 56, and creatinine 1.77. Lactic acid was 2.1, LDH was 2084, and C-reactive protein was 66.4. Pro-calcitonin was 0.74. The patient is a lifelong nonsmoker, and his only major medical problem was that of diabetes. He is status post right BKA. Progress note dated 09/19/2020. This is a 69-year-old male that we saw in consultation yesterday. He presented to the emergency department on September 17, complaining of shortness of breath, fever, and recently been tested positive for COVID 19. Currently, the patient's on O2 at about 7-8 L/m high flow. He is feeling a bit better today. To look at the patient, he appears in no distress. He's not having any conversational dyspnea, audible wheezing, use of accessory muscles. He looks very comfortable. I told him we could not discharge him from the hospital till as oxygen requirements are down below 5 L/m. His only other medical problem is that of diabetes. He is a lifelong nonsmoker. White count is 5.1, hemoglobin 11.9, hematocrit 37.5, platelet count 181,000, sodium 137, potassium 3.7, chloride 107, CO2 24, anion gap 6, BUN 60, and creatinine 1.60. Patient is seen today 09/20/2020 in follow-up on the selective care unit. He is currently sitting up in a chair at the bedside. Awake and alert in no acute distress. Breathing better today compared to yesterday. Still requiring 15 L high flow nasal cannula to maintain O2 saturation in the 90s. He's been afebrile. He has received 1 unit of convalescent plasma. Blood cultures reveal no growth. White count 4.4. Hemoglobin 11.8. Platelets 149. Lymphocytes 0.3. Sodium 139. Potassium 3.8. Creatinine 1.41. He remains on dexamethasone, Lovenox, vitamin supplements. The patient is seen today 09/21/2020 in follow-up on the selective care unit. Currently resting fairly comfortably in bed. Last evening he started having increasing shortness of breath. He is now on 15 L high phone nasal cannula in addition to a nonrebreather mask to maintain O2 saturation in the low 90s. He is afebrile. Hemodynamically stable. Chest x-ray reveals stable patchy bilate ral infiltrates. Doppler of the left lower extremity was negative for DVT. Echocardiogram reveals severely impaired left ventricular systolic function with ejection fraction 25-30%. No evidence of thrombus. Blood culture reveals no growth. White count 6.8. Hemoglobin 12.6. D-dimer 6.29. Sodium 139. Potassium 3.8. Creatinine 1.28. LDH 635. C-reactive protein 19.9. He remains on Lovenox, dexamethasone, vitamin supplements. The patient is seen today 09/22/2020 in follow-up on the selective care unit. He is currently sitting up in bed. Awake and alert in no acute distress. He is still requiring 15 L high flow nasal cannula to maintain O2 saturation at 90%. 0.9 normal saline at KVO. He did receive tocilizumab and convalescent plasma. Remains on Lovenox, Decadron, vitamin supplements. Objective - Vital Signs Vital signs: Vital Signs Temp 97.6 F 09/22/20 11:46 Pulse 81 09/22/20 14:00 Resp 20 09/22/20 14:00 BP 122/68 09/22/20 11:46 Pulse Ox 97 09/22/20 11:46 Intake & Output 09/21/20 09/22/20 09/22/20 18:59 06:59 18:59 Intake Total 980 0 Output Total 2950 1650 300 Balance -1969 Weight 86 kg Intake: Oral 980 0 Output: Urine 2950 1650 300 Other: Voiding Method Toilet Urinal External Catheter - Exam GENERAL EXAM: Alert, pleasant 69-year-old gentleman, and 15 L high flow nasal cannula, comfortable in no apparent distress. HEAD: Normocephalic. EYES: Normal reaction of pupils, equal size. NOSE: Clear with pink turbinates. THROAT: No erythema or exudates. NECK: No masses, no JVD. CHEST: No chest wall deformity. LUNGS: Equal air entry with crackles in the bilateral posterior bases. CVS: S1 and S2 normal with an audible murmur, regular rhythm. ABDOMEN: No hepatosplenomegaly, normal bowel sounds, no guarding or rigidity. SPINE: No scoliosis or deformity SKIN: No rashes CENTRAL NERVOUS SYSTEM: No focal deficits, tone is normal in all 4 extremities. EXTREMITIES: There is no peripheral edema. No clubbing, no cyanosis. Peripheral pulses are intact. - Labs CBC & Chem 7: 09/22/20 06:53 09/22/20 06:53 Labs: Abnormal Lab Results - Last 24 Hours (Table) 09/21/20 09/21/20 09/22/20 Range/Units 17:09 20:30 00:51 RBC (4.30-5.90) m/uL MCV (80.0-100.0) fL MCH (25.0-35.0) pg D-Dimer (<0.60) mg/L FEU BUN 54 H (9-20) mg/dL Creatinine 1.51 H (0.66-1.25) mg/dL Glucose 141 H (74-99) mg/dL POC Glucose (mg/dL) 334 H 355 H (75-99) mg/dL Magnesium 1.5 L (1.6-2.3) mg/dL Lactate Dehydrogenase (313-618) U/L C-Reactive Protein (<10.0) mg/L Albumin 3.3 L (3.5-5.0) g/dL 09/22/20 09/22/20 09/22/20 Range/Units 06:38 06:53 06:53 RBC (4.30-5.90) m/uL MCV (80.0-100.0) fL MCH (25.0-35.0) pg D-Dimer 4.18 H (<0.60) mg/L FEU BUN 53 H (9-20) mg/dL Creatinine 1.47 H (0.66-1.25) mg/dL Glucose 131 H (74-99) mg/dL POC Glucose (mg/dL) 133 H (75-99) mg/dL Magnesium (1.6-2.3) mg/dL Lactate Dehydrogenase 1544 H (313-618) U/L C-Reactive Protein 33.7 H (<10.0) mg/L Albumin (3.5-5.0) g/dL 09/22/20 09/22/20 Range/Units 06:53 12:03 RBC 6.78 H (4.30-5.90) m/uL MCV 63.0 L (80.0-100.0) fL MCH 20.2 L (25.0-35.0) pg D-Dimer (<0.60) mg/L FEU BUN (9-20) mg/dL Creatinine (0.66-1.25) mg/dL Glucose (74-99) mg/dL POC Glucose (mg/dL) 151 H (75-99) mg/dL Magnesium (1.6-2.3) mg/dL Lactate Dehydrogenase (313-618) U/L C-Reactive Protein (<10.0) mg/L Albumin (3.5-5.0) g/dL Microbiology - Last 24 Hours (Table) 09/17/20 19:53 Blood Culture - Preliminary Blood No Growth after 96 hours 09/17/20 19:45 Blood Culture - Preliminary Blood No Growth after 96 hours Assessment and Plan Assessment: 1 Acute hypoxemic respiratory failure secondary to CoVID 19 pneumonia. Outside the window for Remdesivir. Did receive tocilizumab, convalescent plasma. 2 Severe left ventricular systolic function with ejection fraction 25-30% 3 Diabetes mellitus 4 Lifelong nonsmoker 5 History of right below the knee amputation Plan: The patient was seen and evaluated by Dr. Marie Continue Decadron, Lovenox, vitamin supplements Continue diuretics Follow-up chest x-ray in a.m. Repeat inflammatory markers in the a.m. We will continue to follow I, the cosigning physician, performed a history & physical examination of the patient. Lungs sounds with crackles in the posterior bases. Maintaining good O2 saturations in the 90s on 15 L high flow nasal cannula. I discussed the assessment and plan of care with my nurse practitioner, Nathalia Ruvalcaba. I attest to the above note as dictated by her.
--- NOTE | 2020-09-22 16:05 | CDI ---
Documentation Clarification Form Date: 09/22/2020 03:35:00 PM From: Naina Fernandez RN CCDS Admit Date: 09/17/2020 09:08:00 PM Patient Name: Miki Stockton Visit Number: [id number] Discharge Date: ATTENTION: The Clinical Documentation Specialists (CDI) and [facility] Coding Staff appreciate your assistance in clarifying documentation. Please respond to the clarification below the line at the bottom and electronically sign. The CDI & [facility] Coding staff will review the response and follow-up if needed. Please note: Queries are made part of the Legal Health Record. If you have any questions, please contact the author of this message via ITS. Dr. Jose Carlos Jean Baptiste The patient is being treated with Lasix IV and Toprol XL. History/Risk Factors: 69-year-old male presents to the ED with generalized weakness, dyspnea and cough. Tested positive for COVID five days prior to presentation. 09/17 HP. Cardiology was consulted for decreased ejection fraction. Medical History DM and right BKA. Cardiology consult 09/22. Clinical Indicators: Cardiomyopathy, may be secondary to COVID, cannot rule out underlying coronary disease. Cardiology consult 09/22. VS/Pulse OX 09/21 04:32: B/P 146/89; HR 76; RR 17; Temp 97.9 F Oral; SpO2 92% 15L High Flow oxygen. BNP 09/22: 3630 Echocardiogram Results 09/21: Left ventricular systolic function severely impaired EF 25-30%. Mild aortic valve sclerosis. Mild aortic valve sclerosis. Trace /mild (physiologic) pulmonic regurgitation. Chest X Ray 09/21: Stable patchy bilateral infiltrate. Treatment: Lasix 40mg IV x1 09/21; Lasix 40mg IV Q12HR 09/21 to current. Toprol XL 25mg PO Daily 09/22 to current. Lisinopril 2.5mg PO Daily (one dose given) 09/22 d/cd 09/22. In your professional opinion, can you please clarify if the diagnosis of the treatment? Acute Systolic Heart Failure (reduced EF) Heart Failure Ruled Out Unable to Determine Other, please specify (Last Revision: October 2017) MTDD
[2020-09-22 16:58] LABS: Glucose,Whole Blood 246 mg/dL (75-99)
[2020-09-22 20:11] LABS: Glucose,Whole Blood 332 mg/dL (75-99)
[2020-09-22] MEDS: INSULIN DETEMIR (LEVEMIR) 100 UNIT/ML SYR SQ SCH (20:27)
[2020-09-23 06:28] LABS: Glucose,Whole Blood 149 mg/dL (75-99)
[2020-09-23] MEDS: INSULIN ASPART (NovoLOG) 100 UNIT/ML VIAL SQ SCH ×8 (06:30→20:45)
[2020-09-23] MEDS: ALBUTEROL HFA INHALER INHALATION PRN ×4 (07:53→20:12)
[2020-09-23 08:59] LABS: Glucose,Whole Blood 144 mg/dL (75-99)
[2020-09-23] MEDS: ZINC SULFATE 220 MG CAP PO SCH (09:22)
[2020-09-23] MEDS: FUROSEMIDE 10 MG/ML 4 ML VIAL IV SCH (09:22)
[2020-09-23] MEDS: ASCORBIC ACID 500 MG TAB PO SCH (09:22)
[2020-09-23] MEDS: dexAMETHasone 2 MG TAB PO SCH (09:22)
[2020-09-23] MEDS: CHOLECALCIFEROL 25 MCG (1000 IU) TABLET PO SCH (09:22)
[2020-09-23] MEDS: METOPROLOL SUCCINATE (ER) 25 MG TAB.ER.24H PO SCH (09:22)
[2020-09-23] MEDS: ENOXAPARIN 40 MG/0.4 ML SYRINGE SQ SCH ×2 (09:22→20:46)
[2020-09-23 09:46] LABS: HGB 13.4 gm/dL (13.0-17.5); Hypochromasia Moderate; MCH 19.4 pg (25.0-35.0); MCHC 30.5 g/dL (31.0-37.0); MCV 63.7 fL (80.0-100.0); Mean Platelet Volume 6.7; Microcytosis Marked; Platelet Count 204 k/uL (150-450); RBC 6.91 m/uL (4.30-5.90); RDW 14.5 % (11.5-15.5); WBC 10.8 k/uL (3.8-10.6)
[2020-09-23 10:22] LABS: C Reactive Protein 16.8 mg/L (<10.0); Calcium 9.1 mg/dL (8.4-10.2); Magnesium 1.9 mg/dL (1.6-2.3); Potassium 3.6 mmol/L (3.5-5.1)
--- NOTE | 2020-09-23 11:29 | XR ---
EXAMINATION TYPE: XR chest 1V portable DATE OF EXAM: 09/23/2020 COMPARISON: 09/21/2020 INDICATION: COVID Pneumonia TECHNIQUE: Single frontal view of the chest is obtained. FINDINGS: The heart size is normal. The pulmonary vasculature is normal. Some linear atelectasis appears to be present at the right base. Patchy subsegmental infiltrate is at the left base. Findings have some improvement over the interval. IMPRESSION: 1. Patchy mid and lower lung field infiltrates can be compatible with resolving atypical pneumonia. 2. Some platelike atelectasis is at the right lung base.
[2020-09-23 11:48] LABS: Glucose,Whole Blood 227 mg/dL (75-99)
--- NOTE | 2020-09-23 13:23 | P.PN ---
<Paul Vieyra - Last Filed: 09/23/20 12:43> Subjective Progress Note Date: 09/23/20 Principal diagnosis: Covid Pneumonitis with acute hypoxemic respiratory failure Hospital course: Patient is a 69-year-old male with a past medical history of type 2 insulin- dependent diabetes mellitus and right BKA. Patient was diagnosed with Covid 19 virus infection on 09/12/20 and continued to have increasing shortness of breath and fatigue accompanied by muscle aches, poor appetite, and loss of taste resulting in him coming to the hospital for evalution.Upon arrival he was found to be in acute respiratory failure with hypoxia with SPO2 78% on room air requi ring BIPAP with supplemental oxygenation. Lab findings revealed an elevated d- dimer of 32.24; respiratory alkalosis with pCO2 of 28, PaO2 of 64, and pH of 7.49; elevated lactate of 2.1; ferritin of 1679.6; LDH 2084; troponin 0.146; CRP is 66.4; a KCI with BUN of 56, creatinine 1.77, and GFR of 38; and pro- calcitonin of 0.74. As a result, Mr. Stockton was admitted to the hospital on 09/17/20 for acute respiratory failure with hypoxia resulting from Covid 19 virus infection with pneumonitis. Upon admission and chest x-ray was positive for bilateral multifocal pneumonia. His EKG revealed normal sinus rhythm at 83 bpm with a prolonged QT/QTC of 422/495 ms, no T-wave or ST abnormalities noted. P von has been on Decadron 6 mg daily with today being day 7 of 10. Patient also being treated with vitamin C, vitamin D, and zinc. DVT prophylaxis with Lovenox. Patient continues to be in hypoxic respiratory failure on NRB 15L and high flow NC at 15 L via high flow nasal cannula at this time with SPO2 91-92%. Repeat chest x-ray completed 09/21/20 showing stable patchy bilateral infiltrates with hyperinflation. Venous Doppler of left lower extremity negative for DVTs. Echocardiogram revealed mild concentric LVH with a severely impaired ejection fraction of 25-30%. Patient being diuresed with Lasix and is on metoprolol. Pulmonology and cardiology following along closely with our hospitalist team. Physical exam: 09/23/20: Patient had an event this morning. Patient reportedly needed to have a bowel movement and was assisted to bedside commode and while sitting on bedside commode patient had a syncopal episode. Patient did not fall off of commode, this was witnessed by nursing staff and patient was immediately assisted back into bed. Once placed back into bed, patient immediately awoken and was alert and oriented to person, place, time, and situation. His GCS is 15. He exhibited no noted neuro deficits. He reported that he remembered sitting on the bedside commode and then awakening to everyone around him but did not remember syncopal event or feeling dizzy/lightheaded, having any palpitations or experiencing any other complaints prior to this event. Mr. Stockton was wearing his oxygen at this time and had stable SPO2, his blood sugar was 144 and his vital signs were stable immediately after event with BP 134/74, HR 81, RR 20, and SpO2 94% on 15 L high flow nasal cannula along with 15 L NRB. Syncopal episode is believed to be secondary to vasovagal event. Telemetry was reviewed, no arrhythmias noted leading up to or during this timeframe. Patient otherwise denies having any other complaints at this time including headache, lightheadedness, dizziness, changes in his vision or hearing, chest pain or palpitations, increased shortness of breath, abdominal pain, nausea, vomiting, or experiencing any numbness/weakness/tingling in his extremities. Attempts were again made earlier in the morning (around 7 AM) to wean patient back off some of his oxygen, NRB was removed and patient remained on 15 L high flow nasal cannula and SpO2 reportedly decreased to 84% and after placement back on nonrebreather SpO2 increased back up to 94%. This is somewhat improved since yesterday, as patient desaturated down to 70% on 15 L high flow nasal cannula when his NRB was removed. Condom cath in place. Urinary output 1225 mL over the past 24 hours. General: non toxic, no distress, appears at stated age Derm: warm, dry Head: atraumatic, normocephalic, symmetric Eyes: EOMI, no lid lag, anicteric sclera Mouth: no lip lesion, mucus membranes moist Cardiovascular: S1S2 reg, no murmur, positive posterior tibial pulses bilaterally, no lower extremity edema. Lungs: Respirations even, regular, and unlabored on 15 L O2 via high flow nasal cannula along with 15 L NRB mask. Upon auscultation of lungs, diffuse rhonchi with crackles at bilateral bases. No accessory muscle usage. Abdominal: Soft, nontender to palpation, no guarding, and no appreciable organo megaly. Ext: No gross muscle atrophy, no edema, no contractures, patient has right BKA. Neuro: Speech clear, GCS 15. CN II-XII grossly intact, no focal neuro deficits Psych: Alert and oriented to person, place, time, and situation. Pleasant and appropriate affect. Assessment and Plan of Care: Covid pneumonitis resulting in acute hypoxic respiratory failure -Patient remains on 15 L high flow nasal cannula along with 15 L NRB mask with SpO2 maintaining at 92%. Wean once patient tolerates. -Inflammatory markers continue to improve. CRP 16.8 from initial 66.4, LDH currently 1462 from initial 2084 and d-dimer 3.50 from initial 32.24. -Continue Decadron 6 mg daily, today is day 7 of 10. -Continue vitamin C, vitamin D, and zinc. -Continue MDIs as needed. -Patient received convalescent plasma and Toclilizumab. -Pulmonology is following, appreciate further recommendations. -Continue therapeutic anticoagulation with Lovenox.. -DVT prophylaxis with Lovenox Severely impaired left ventricular systolic function with an ejection fraction of 25-30% -Cardiology consulted, appreciate further recommendations. -Lasix decreased to 40 mg once daily secondary to elevating renal function with BUN of 68, creatinine 1.75, and GFR of 39. -We will continue to monitor Strict I's and O's, urine output documented at 1225 mL's over the past 24 hours. -Continuous telemetry monitoring -Continue metoprolol 25 mg daily. Syncopal episode, likely secondary to vasovagal event -Continuous telemetry monitoring -Fall precautions -Monitor vital signs Acute kidney injury -Elevation in renal function with BUN of 68, creatinine 1.75, and GFR of 39. - Lasix decreased to 40 mg IVP daily secondary to this AARON. -We will continue to monitor closely with repeat a.m. labs to evaluate renal function along with electrolyte values. Insulin-dependent diabetes mellitus type II -Glycemic protocol with NovoLog sliding scale along with Levemir 15 units night ly. -Heart healthy carb consistent diet. Elevated troponin, d-dimer, and inflammatory markers most likely resulting from Covid 19 virus infection -Patient asymptomatic denying having any chest pain, palpitations or further cardiac complaints. -EKG revealed normal sinus rhythm at 83 bpm with a prolonged QT/QTC of 422/495 ms, no T-wave or ST abnormalities noted. -Continuous telemetry monitoring. -Continue DVT prophylaxis with Lovenox. Thrombocytopenia, resolved. CODE STATUS: Full code DVT prophylaxis: Lovenox Discussed with: Patient and RN Anticipated discharge date: Clinical course to determine Anticipated discharge place: Home with home care A total of 45 minutes was spent on the care of this complex patient more than 50% of the time was spent in counseling and care coordination. Objective - Vital Signs Vital signs: Vital Signs Temp 97.9 F 09/23/20 04:00 Pulse 70 09/23/20 04:00 Resp 18 09/23/20 04:00 BP 119/72 09/23/20 04:00 Pulse Ox 97 09/23/20 04:00 Intake & Output 09/22/20 09/23/20 09/23/20 18:59 06:59 18:59 Intake Total 900 240 Output Total 850 375 Balance 50 -135 Intake: Oral 900 240 Output: Urine 850 375 Other: Voiding Method External Catheter External Catheter # Bowel Movements 1 - Labs CBC & Chem 7: 09/23/20 08:34 09/23/20 08:34 Labs: Abnormal Lab Results - Last 24 Hours (Table) 09/22/20 09/22/20 09/22/20 Range/Units 12:03 16:56 20:10 POC Glucose (mg/dL) 151 H 246 H 332 H (75-99) mg/dL 09/23/20 09/23/20 Range/Units 06:22 08:57 POC Glucose (mg/dL) 149 H 144 H (75-99) mg/dL Microbiology - Last 24 Hours (Table) 09/17/20 19:45 Blood Culture - Preliminary Blood No Growth after 120 hours 09/17/20 19:53 Blood Culture - Preliminary Blood No Growth after 120 hours <Mildred Melton - Last Filed: 09/23/20 17:13> Objective - Vital Signs Vital signs: Vital Signs Temp 96 F L 09/23/20 16:12 Pulse 85 09/23/20 16:12 Resp 20 09/23/20 16:12 BP 122/42 09/23/20 16:12 Pulse Ox 98 09/23/20 16:12 Intake & Output 09/22/20 09/23/20 09/23/20 18:59 06:59 18:59 Intake Total 900 240 720 Output Total 850 375 Balance 50 -135 720 Intake: Oral 900 240 720 Output: Urine 850 375 Other: Voiding Method External Catheter External Catheter # Bowel Movements 1 - Labs CBC & Chem 7: 09/23/20 08:34 09/23/20 08:34 Labs: Abnormal Lab Results - Last 24 Hours (Table) 09/22/20 09/23/20 09/23/20 Range/Units 20:10 06:22 08:34 WBC 10.8 H (3.8-10.6) k/uL RBC 6.91 H (4.30-5.90) m/uL MCV 63.7 L (80.0-100.0) fL MCH 19.4 L (25.0-35.0) pg MCHC 30.5 L (31.0-37.0) g/dL D-Dimer (<0.60) mg/L FEU Chloride (98-107) mmol/L BUN (9-20) mg/dL Creatinine (0.66-1.25) mg/dL Glucose (74-99) mg/dL POC Glucose (mg/dL) 332 H 149 H (75-99) mg/dL Lactate Dehydrogenase (313-618) U/L C-Reactive Protein (<10.0) mg/L 09/23/20 09/23/20 09/23/20 Range/Units 08:34 08:34 08:57 WBC (3.8-10.6) k/uL RBC (4.30-5.90) m/uL MCV (80.0-100.0) fL MCH (25.0-35.0) pg MCHC (31.0-37.0) g/dL D-Dimer 3.50 H (<0.60) mg/L FEU Chloride 97 L (98-107) mmol/L BUN 68 H (9-20) mg/dL Creatinine 1.75 H (0.66-1.25) mg/dL Glucose 124 H (74-99) mg/dL POC Glucose (mg/dL) 144 H (75-99) mg/dL Lactate Dehydrogenase 1462 H (313-618) U/L C-Reactive Protein 16.8 H (<10.0) mg/L 09/23/20 09/23/20 Range/Units 11:46 16:51 WBC (3.8-10.6) k/uL RBC (4.30-5.90) m/uL MCV (80.0-100.0) fL MCH (25.0-35.0) pg MCHC (31.0-37.0) g/dL D-Dimer (<0.60) mg/L FEU Chloride (98-107) mmol/L BUN (9-20) mg/dL Creatinine (0.66-1.25) mg/dL Glucose (74-99) mg/dL POC Glucose (mg/dL) 227 H 339 H (75-99) mg/dL Lactate Dehydrogenase (313-618) U/L C-Reactive Protein (<10.0) mg/L Microbiology - Last 24 Hours (Table) 09/17/20 19:45 Blood Culture - Preliminary Blood No Growth after 120 hours 09/17/20 19:53 Blood Culture - Preliminary Blood No Growth after 120 hours Assessment and Plan Assessment: Patient seen and examined independently. Patient was also seen by Paul Vieyra NP and case was discussed. I am in agreement with subjective, physical exam, assessment and plan as written above and amended below. General: non toxic, no distress, appears at stated age Derm: warm, dry Head: atraumatic, normocephalic, symmetric Eyes: EOMI, no lid lag, anicteric sclera Mouth: no lip lesion, mucus membranes moist Cardiovascular: S1S2 reg, no murmur, no accessory muscle use, right BKA Abdominal: soft, nontender to palpation, no guarding, no appreciable organomegaly Ext: no gross muscle atrophy, no edema, no contractures Neuro: CN II-XI grossly intact, no focal neuro deficits Psych: Alert, oriented, appropriate affect Arrived to bed when patient had syncopal episode. Pulses intact, O2 sat noted to be 80%. Patient awake alert and talking, no evidence of loss of bowel or bladder, no tongue biting. Patient had been up and going to the bathroom on the bedside commode when they noticed him to be slumped over. Telemetry reviewed without significant arrhythmia noted. Blood pressure stable. Suspect vasovagal syncope. -Hold KHOA inhibitor secondary to worsening creatinine, decrease Lasix secondary to worsening creatinine, follow renal function closely Despite increasing fixed dose NovoLog to 2 units plus sliding scale plus Levemir on 09/22 patient continues to have hyperglycemia later in the day. Will add 4 units fixed dose insulin in addition to Levemir and sliding scale.
--- NOTE | 2020-09-23 14:33 | P.PN ---
Subjective Progress Note Date: 09/23/20 Principal diagnosis: CoVID 19 pneumonia 69-year-old male, who presented to the emergency department, on 09/17/2020. The patient apparently came in with complaints of shortness of breath, fever, and recently being tested positive for COVID 19. The patient hasn't been feeling we ll for a couple weeks now, and about 5 or 6 days ago, was tested here at this hospital and was positive for coronavirus. The patient was not having major issues at that time, and therefore was discharged home. More recently, over the last couple of days, he states that he is becoming more more symptomatic. He had muscle aches, poor appetite, loss of taste, just feeling fatigued, and shortness of breath on exertion. No fever or chills. He wasn't coughing up any phlegm. His cough is mostly nonproductive. He denied any chest pain or chest discomfort. There is no nausea, vomiting, diarrhea, or abdominal pain. A chest x-ray was done and showed bilateral infiltrates, and, his white count was 4.5, hemoglobin 13, hematocrit 41.5, and platelet count 312,000. D-dimer was 32.24, PaO2 was 64, with a PaCO2 of 28 and a pH is 7.49. Sodium was 135, potassium 4.3, chlorides 100, CO2 23, anion gap 12, BUN 56, and creatinine 1.77. Lactic acid was 2.1, LDH was 2084, and C-reactive protein was 66.4. Pro-calcitonin was 0.74. The patient is a lifelong nonsmoker, and his only major medical problem was that of diabetes. He is status post right BKA. Progress note dated 09/19/2020. This is a 69-year-old male that we saw in consultation yesterday. He presented to the emergency department on September 17, complaining of shortness of breath, fever, and recently been tested positive for COVID 19. Currently, the patient's on O2 at about 7-8 L/m high flow. He is feeling a bit better today. To look at the patient, he appears in no distress. He's not having any conversational dyspnea, audible wheezing, use of accessory muscles. He looks very comfortable. I told him we could not discharge him from the hospital till as oxygen requirements are down below 5 L/m. His only other medical problem is that of diabetes. He is a lifelong nonsmoker. White count is 5.1, hemoglobin 11.9, hematocrit 37.5, platelet count 181,000, sodium 137, potassium 3.7, chloride 107, CO2 24, anion gap 6, BUN 60, and creatinine 1.60. Patient is seen today 09/20/2020 in follow-up on the selective care unit. He is currently sitting up in a chair at the bedside. Awake and alert in no acute distress. Breathing better today compared to yesterday. Still requiring 15 L high flow nasal cannula to maintain O2 saturation in the 90s. He's been afebrile. He has received 1 unit of convalescent plasma. Blood cultures reveal no growth. White count 4.4. Hemoglobin 11.8. Platelets 149. Lymphocytes 0.3. Sodium 139. Potassium 3.8. Creatinine 1.41. He remains on dexamethasone, Lovenox, vitamin supplements. The patient is seen today 09/21/2020 in follow-up on the selective care unit. Currently resting fairly comfortably in bed. Last evening he started having increasing shortness of breath. He is now on 15 L high phone nasal cannula in addition to a nonrebreather mask to maintain O2 saturation in the low 90s. He is afebrile. Hemodynamically stable. Chest x-ray reveals stable patchy bilate ral infiltrates. Doppler of the left lower extremity was negative for DVT. Echocardiogram reveals severely impaired left ventricular systolic function with ejection fraction 25-30%. No evidence of thrombus. Blood culture reveals no growth. White count 6.8. Hemoglobin 12.6. D-dimer 6.29. Sodium 139. Potassium 3.8. Creatinine 1.28. LDH 635. C-reactive protein 19.9. He remains on Lovenox, dexamethasone, vitamin supplements. The patient is seen today 09/22/2020 in follow-up on the selective care unit. He is currently sitting up in bed. Awake and alert in no acute distress. He is still requiring 15 L high flow nasal cannula to maintain O2 saturation at 90%. 0.9 normal saline at KVO. He did receive tocilizumab and convalescent plasma. Remains on Lovenox, Decadron, vitamin supplements. The patient is seen today 09/23/2020 in follow-up on the selective care unit. Presently he is sitting up in the bed awake and alert in no acute distress. Earlier this morning while the patient was having a bowel movement he developed a bradycardic episode of syncope and CODE BLUE was called but the patient had return of spontaneous circulation. He denies any chest discomfort and dizziness or lightheadedness. He denies any worsening shortness of breath, cough or congestion. His x-ray continues to show patchy mid and lower lung field infiltrates compatible with resolving atypical pneumonia. Platelike atelectasis in the right lung base. Still requiring 15 L high flow nasal cannula in addition to a nonrebreather mask to maintain O2 saturations in the 90s. He's been afebrile. Hemodynamically stable. White count 10.8. Hemoglobin 13.4. D- dimer 3.50. Sodium 137. Potassium 3.6. Creatinine 1.75. LDH 1462. C- reactive protein 16.8. Markers are trending down. He has received tocilizumab and convalescent plasma. He remains on Lovenox, dexamethasone, vitamin supplements. Objective - Vital Signs Vital signs: Vital Signs Temp 97.4 F L 09/23/20 11:57 Pulse 75 09/23/20 11:57 Resp 20 09/23/20 11:57 BP 112/52 09/23/20 11:57 Pulse Ox 99 09/23/20 11:57 Intake & Output 09/22/20 09/23/20 09/23/20 18:59 06:59 18:59 Intake Total 900 240 240 Output Total 850 375 Balance 50 -135 240 Intake: Oral 900 240 240 Output: Urine 850 375 Other: Voiding Method External Catheter External Catheter # Bowel Movements 1 - Exam GENERAL EXAM: Alert, pleasant 69-year-old gentleman, and 15 L high flow nasal cannula, comfortable in no apparent distress. HEAD: Normocephalic. EYES: Normal reaction of pupils, equal size. NOSE: Clear with pink turbinates. THROAT: No erythema or exudates. NECK: No masses, no JVD. CHEST: No chest wall deformity. LUNGS: Equal air entry with crackles in the bilateral posterior bases. CVS: S1 and S2 normal with an audible murmur, regular rhythm. ABDOMEN: No hepatosplenomegaly, normal bowel sounds, no guarding or rigidity. SPINE: No scoliosis or deformity SKIN: No rashes CENTRAL NERVOUS SYSTEM: No focal deficits, tone is normal in all 4 extremities. EXTREMITIES: There is no peripheral edema. No clubbing, no cyanosis. Peripheral pulses are intact. - Labs CBC & Chem 7: 09/23/20 08:34 09/23/20 08:34 Labs: Abnormal Lab Results - Last 24 Hours (Table) 09/22/20 09/22/20 09/23/20 Range/Units 16:56 20:10 06:22 WBC (3.8-10.6) k/uL RBC (4.30-5.90) m/uL MCV (80.0-100.0) fL MCH (25.0-35.0) pg MCHC (31.0-37.0) g/dL D-Dimer (<0.60) mg/L FEU Chloride (98-107) mmol/L BUN (9-20) mg/dL Creatinine (0.66-1.25) mg/dL Glucose (74-99) mg/dL POC Glucose (mg/dL) 246 H 332 H 149 H (75-99) mg/dL Lactate Dehydrogenase (313-618) U/L C-Reactive Protein (<10.0) mg/L 09/23/20 09/23/20 09/23/20 Range/Units 08:34 08:34 08:34 WBC 10.8 H (3.8-10.6) k/uL RBC 6.91 H (4.30-5.90) m/uL MCV 63.7 L (80.0-100.0) fL MCH 19.4 L (25.0-35.0) pg MCHC 30.5 L (31.0-37.0) g/dL D-Dimer 3.50 H (<0.60) mg/L FEU Chloride 97 L (98-107) mmol/L BUN 68 H (9-20) mg/dL Creatinine 1.75 H (0.66-1.25) mg/dL Glucose 124 H (74-99) mg/dL POC Glucose (mg/dL) (75-99) mg/dL Lactate Dehydrogenase 1462 H (313-618) U/L C-Reactive Protein 16.8 H (<10.0) mg/L 09/23/20 09/23/20 Range/Units 08:57 11:46 WBC (3.8-10.6) k/uL RBC (4.30-5.90) m/uL MCV (80.0-100.0) fL MCH (25.0-35.0) pg MCHC (31.0-37.0) g/dL D-Dimer (<0.60) mg/L FEU Chloride (98-107) mmol/L BUN (9-20) mg/dL Creatinine (0.66-1.25) mg/dL Glucose (74-99) mg/dL POC Glucose (mg/dL) 144 H 227 H (75-99) mg/dL Lactate Dehydrogenase (313-618) U/L C-Reactive Protein (<10.0) mg/L Microbiology - Last 24 Hours (Table) 09/17/20 19:45 Blood Culture - Preliminary Blood No Growth after 120 hours 09/17/20 19:53 Blood Culture - Preliminary Blood No Growth after 120 hours Assessment and Plan Assessment: 1 Acute hypoxemic respiratory failure secondary to CoVID 19 pneumonia. Outside the window for Remdesivir. Did receive tocilizumab, convalescent plasma. 2 Severe left ventricular systolic function with ejection fraction 25-30% 3 Diabetes mellitus 4 Lifelong nonsmoker 5 History of right below the knee amputation 6 Syncope with bradycardia, suspect vasovagal during bowel movement Plan: The patient was seen and evaluated by Dr. Marie Continue the current treatment plan Titrate down the FiO2 as tolerated We will continue to follow I, the cosigning physician, performed a history & physical examination of the patient. Lungs sounds with crackles in the posterior bases. Maintaining good O2 saturations in the 90s on 15 L high flow nasal cannula. I discussed the assessment and plan of care with my nurse practitioner, Nathalia Ruvalcaba. I attest to the above note as dictated by her.
--- NOTE | 2020-09-23 14:34 | P.PN ---
Subjective Progress Note Date: 09/23/20 CHIEF COMPLAINT: Ejection fraction 25% HISTORY OF PRESENT ILLNESS: This is a 69-year old male with a past medical history significant for diabetes mellitus and right BKA. 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 We have been asked to see the patient in consultation for decreased ejection fraction. Patient is admitted to the hospital secondary to Covid 19. Echocardiogram completed revealed ejection fraction 25-30%. There is no previous echocardiogra m in the computer for comparison. Patient had a syncopal episode this morning while on the bedside commode. Believed to be vasovagal in nature. No arrhythmias noted on telemetry. Patient is currently on 100% nonrebreather. Blood pressure 112/52. Heart rate in the 70s. He is afebrile. Creatinine increased today to 1.75, from 1.47 yesterday. Patient remains on IV lasix. PHYSICAL EXAM: Thorough physical exam not completed secondary to limited evaluation/examination and due to Covid19 ASSESSMENT: Covid 19 Acute hypoxic respiratory failure Cardiomyopathy, may be secondary to Covid, cannot rule out underlying coronary disease Acute kidney injury, unknown if patient has CKD Diabetes mellitus History of right BKA Syncopal episode, suspect secondary to vasovagal PLAN: Discontinue IV lasix. Begin oral lasix 40mg BID. Monitor kidney function. Repeat in AM. No KHOA/ARB at this time secondary to kidney function Continue current dose of metoprolol Daily weights Accurate I&O Patient will require cardiac catheterization when he is medically stable and recovered from his Covid infection Further recommendations pending patient's course Nurse practitioner note has been reviewed by physician. Signing provider agrees with the documented findings, assessment, and plan of care. Objective - Vital Signs Vital signs: Vital Signs Temp 97.4 F L 09/23/20 11:57 Pulse 75 09/23/20 11:57 Resp 20 09/23/20 11:57 BP 112/52 09/23/20 11:57 Pulse Ox 99 09/23/20 11:57 Intake & Output 09/22/20 09/23/20 09/23/20 18:59 06:59 18:59 Intake Total 900 240 240 Output Total 850 375 Balance 50 -135 240 Intake: Oral 900 240 240 Output: Urine 850 375 Other: Voiding Method External Catheter External Catheter # Bowel Movements 1 - Labs CBC & Chem 7: 09/23/20 08:34 09/23/20 08:34 Labs: Abnormal Lab Results - Last 24 Hours (Table) 09/22/20 09/22/20 09/23/20 Range/Units 16:56 20:10 06:22 WBC (3.8-10.6) k/uL RBC (4.30-5.90) m/uL MCV (80.0-100.0) fL MCH (25.0-35.0) pg MCHC (31.0-37.0) g/dL D-Dimer (<0.60) mg/L FEU Chloride (98-107) mmol/L BUN (9-20) mg/dL Creatinine (0.66-1.25) mg/dL Glucose (74-99) mg/dL POC Glucose (mg/dL) 246 H 332 H 149 H (75-99) mg/dL Lactate Dehydrogenase (313-618) U/L C-Reactive Protein (<10.0) mg/L 09/23/20 09/23/20 09/23/20 Range/Units 08:34 08:34 08:34 WBC 10.8 H (3.8-10.6) k/uL RBC 6.91 H (4.30-5.90) m/uL MCV 63.7 L (80.0-100.0) fL MCH 19.4 L (25.0-35.0) pg MCHC 30.5 L (31.0-37.0) g/dL D-Dimer 3.50 H (<0.60) mg/L FEU Chloride 97 L (98-107) mmol/L BUN 68 H (9-20) mg/dL Creatinine 1.75 H (0.66-1.25) mg/dL Glucose 124 H (74-99) mg/dL POC Glucose (mg/dL) (75-99) mg/dL Lactate Dehydrogenase 1462 H (313-618) U/L C-Reactive Protein 16.8 H (<10.0) mg/L 09/23/20 09/23/20 Range/Units 08:57 11:46 WBC (3.8-10.6) k/uL RBC (4.30-5.90) m/uL MCV (80.0-100.0) fL MCH (25.0-35.0) pg MCHC (31.0-37.0) g/dL D-Dimer (<0.60) mg/L FEU Chloride (98-107) mmol/L BUN (9-20) mg/dL Creatinine (0.66-1.25) mg/dL Glucose (74-99) mg/dL POC Glucose (mg/dL) 144 H 227 H (75-99) mg/dL Lactate Dehydrogenase (313-618) U/L C-Reactive Protein (<10.0) mg/L Microbiology - Last 24 Hours (Table) 09/17/20 19:45 Blood Culture - Preliminary Blood No Growth after 120 hours 09/17/20 19:53 Blood Culture - Preliminary Blood No Growth after 120 hours
[2020-09-23 16:53] LABS: Glucose,Whole Blood 339 mg/dL (75-99)
[2020-09-23] MEDS: FUROSEMIDE 40 MG TAB PO SCH (17:14)
[2020-09-23 20:27] LABS: Glucose,Whole Blood 418 mg/dL (75-99)
[2020-09-23] MEDS: INSULIN DETEMIR (LEVEMIR) 100 UNIT/ML SYR SQ SCH (20:45)
[2020-09-24 06:14] LABS: Glucose,Whole Blood 125 mg/dL (75-99)
[2020-09-24] MEDS: INSULIN ASPART (NovoLOG) 100 UNIT/ML VIAL SQ SCH ×7 (06:16→20:51)
[2020-09-24 07:56] LABS: HCT 40.2 % (39.0-53.0); HGB 12.5 gm/dL (13.0-17.5); Hypochromasia Moderate; MCH 19.5 pg (25.0-35.0); Mean Platelet Volume 6.8; Microcytosis Marked; Platelet Count 184 k/uL (150-450); RBC 6.38 m/uL (4.30-5.90); RDW 14.4 % (11.5-15.5); WBC 10.4 k/uL (3.8-10.6)
[2020-09-24] MEDS: ALBUTEROL HFA INHALER INHALATION PRN ×4 (08:16→20:33)
[2020-09-24 08:36] LABS: C Reactive Protein 10.8 mg/L (<10.0); Magnesium 1.9 mg/dL (1.6-2.3); Potassium 4.1 mmol/L (3.5-5.1)
[2020-09-24] MEDS: ASCORBIC ACID 500 MG TAB PO SCH (08:36)
[2020-09-24] MEDS: METOPROLOL SUCCINATE (ER) 25 MG TAB.ER.24H PO SCH (08:36)
[2020-09-24] MEDS: CHOLECALCIFEROL 25 MCG (1000 IU) TABLET PO SCH (08:36)
[2020-09-24] MEDS: dexAMETHasone 2 MG TAB PO SCH (08:36)
[2020-09-24] MEDS: ZINC SULFATE 220 MG CAP PO SCH (08:36)
[2020-09-24] MEDS: ENOXAPARIN 40 MG/0.4 ML SYRINGE SQ SCH ×2 (08:37→20:51)
[2020-09-24] MEDS: FUROSEMIDE 40 MG TAB PO SCH (08:37)
[2020-09-24] MEDS ORDERED: FUROSEMIDE 10 MG/ML 4 ML VIAL IV SCH (09:00)
--- NOTE | 2020-09-24 10:06 | P.PN ---
<Paul Vieyra - Last Filed: 09/24/20 10:53> Subjective Progress Note Date: 09/24/20 Principal diagnosis: Covid Pneumonitis with acute hypoxemic respiratory failure Hospital course: Patient is a 69-year-old male with a past medical history of type 2 insulin- dependent diabetes mellitus and right BKA. Patient was diagnosed with Covid 19 virus infection on 09/12/20 and continued to have increasing shortness of breath and fatigue accompanied by muscle aches, poor appetite, and loss of taste resulting in him coming to the hospital for evalution.Upon arrival he was found to be in acute respiratory failure with hypoxia with SPO2 78% on room air requ iring BIPAP with supplemental oxygenation. Lab findings revealed an elevated d- dimer of 32.24; respiratory alkalosis with pCO2 of 28, PaO2 of 64, and pH of 7.49; elevated lactate of 2.1; ferritin of 1679.6; LDH 2084; troponin 0.146; CRP is 66.4; a KCI with BUN of 56, creatinine 1.77, and GFR of 38; and pro- calcitonin of 0.74. As a result, Mr. Stockton was admitted to the hospital on 09/17/20 for acute respiratory failure with hypoxia resulting from Covid 19 virus infection with pneumonitis. Upon admission and chest x-ray was positive for bilateral multifocal pneumonia. His EKG revealed normal sinus rhythm at 83 bpm with a prolonged QT/QTC of 422/495 ms, no T-wave or ST abnormalities noted. Patient has been on Decadron 6 mg daily with today being day 7 of 10. Patient also being treated with vitamin C, vitamin D, and zinc. DVT prophylaxis with Lovenox. Patient continues to be in hypoxic respiratory failure on NRB 15L and high flow NC at 15 L via high flow nasal cannula at this time with SPO2 91-92%. Repeat chest x-ray completed 09/21/20 showing stable patchy bilateral infiltrates with hyperinflation. Venous Doppler of left lower extremity negative for DVTs. Echocardiogram revealed mild concentric LVH with a severely impaired ejection fraction of 25-30%. Patient being diuresed with Lasix and is on metoprolol. Pulmonology and cardiology following along closely with our hospitalist team. Physical exam: 09/24/20: Patient was seen and evaluated at the bedside this morning. He reports feeling significantly better this morning. Patient was able to be weaned off of nonrebreather mask yesterday late afternoon and oxygen needs decreased down to 15 L high flow nasal cannula in which patient has maintained oxygen sats >95% throughout the night and morning. Patient appeared comfortable and reported relief from finally seeing some improvement. He continues to deny having any headache, lightheadedness, dizziness, chest pain, palpitations, shortness of breath, abdominal pain, nausea, vomiting, diarrhea, or any other complaints at this time. He continues to have good oral intake. In addition to patient's progress this morning, his inflammatory markers continue to show improvement revealing CRP 10.8 from initial 66.4, LDH 1089 from initial 2083 and d-dimer 1.94 from initial 32.24. Condom cath remains in place. Renal function worsening with BUN of 73, creatinine 1.92, and GFR of 35. Lasix decreased to 40 mg orally once daily. General: non toxic, no distress, appears at stated age Derm: warm, dry Head: atraumatic, normocephalic, symmetric Eyes: EOMI, no lid lag, anicteric sclera Mouth: no lip lesion, mucus membranes moist Cardiovascular: S1S2 normal with regular rate and rhythm, no murmur, positive posterior tibial pulses bilaterally, no lower extremity edema. Lungs: Respirations even, regular, and unlabored on 15 L O2 via high flow nasal cannula. Upon auscultation of lungs, clear to auscultation with the exception of soft crackles at bilateral bases. No coarse rhonchi, wheezes, or rales noted this morning. No accessory muscle usage. Abdominal: Soft, nontender to palpation, no guarding, and no appreciable organomegaly. Ext: No gross muscle atrophy, no edema, no contractures, patient has right BKA. Neuro: Speech clear, GCS 15. CN II-XII grossly intact, no focal neuro deficits Psych: Alert and oriented to person, place, time, and situation. Pleasant, positive and appropriate affect. Assessment and Plan of Care: Covid pneumonitis resulting in acute hypoxic respiratory failure -Patient decreased O2 needs down to 15 L high flow nasal cannula with SpO2 maintaining > 95%. Will continue to wean as patient tolerates. -Inflammatory markers continue to improve. CRP 10.8 from initial 66.4, LDH currently 1089 from initial 2083 and d-dimer 1.94 from initial 32.24. -Continue Decadron 6 mg daily, today is day 8 of 10. -Continue vitamin C, vitamin D, and zinc. -Continue MDIs as needed. -Patient received convalescent plasma and Toclilizumab. -Pulmonology is following along closely, appreciate further recommendations. -Continue DVT prophylaxis with Lovenox. Severely impaired left ventricular systolic function with an ejection fraction of 25-30% -Cardiology consulted, appreciate further recommendations. -Cardiology transition patient from IV to oral Lasix 40 mg twice a day. -We will continue to monitor Strict I's and O's. -Continuous telemetry monitoring. -Continue metoprolol 25 mg daily. Syncopal episode, likely secondary to vasovagal event -Continuous telemetry monitoring -Fall precautions -Monitor vital signs Acute kidney injury -Elevation in renal function with BUN of 73, creatinine 1.92, and GFR of 35. - Oral Lasix decreased to 40 mg once daily secondary to this AARON. -We will continue to monitor closely with repeat a.m. labs to evaluate renal function along with electrolyte values. Insulin-dependent diabetes mellitus type II with hyperglycemia -Glycemic protocol remains in place, secondary to hyperglycemia we have added NovoLog 4 units 3 times daily with meals in addition to NovoLog sliding scale along with Levemir 15 units nightly. -Heart healthy carb consistent diet. Elevated troponin, d-dimer, and inflammatory markers most likely resulting from Covid 19 virus infection -Patient asymptomatic denying having any chest pain, palpitations or further cardiac complaints. -EKG revealed normal sinus rhythm at 83 bpm with a prolonged QT/QTC of 422/495 ms, no T-wave or ST abnormalities noted. -Continuous telemetry monitoring. -Continue DVT prophylaxis with Lovenox. Thrombocytopenia, resolved. CODE STATUS: Full code DVT prophylaxis: Lovenox Discussed with: Patient and RN, offered again to update patient's family. Ellen ent declined, stating he is keeping his family updated. Anticipated discharge date: Clinical course to determine Anticipated discharge place: Home with home care A total of 45 minutes was spent on the care of this complex patient more than 50% of the time was spent in counseling and care coordination. Objective - Vital Signs Vital signs: Vital Signs Temp 96.9 F L 09/24/20 08:00 Pulse 77 09/24/20 08:00 Resp 20 09/24/20 08:00 BP 123/68 09/24/20 08:00 Pulse Ox 90 L 09/24/20 08:00 Intake & Output 09/23/20 09/24/20 09/24/20 18:59 06:59 18:59 Intake Total 1200 660 Balance 1200 660 Weight 86 kg Intake: Oral 1200 660 Other: Voiding Method External Catheter - Labs CBC & Chem 7: 09/24/20 06:59 09/24/20 06:59 Labs: Abnormal Lab Results - Last 24 Hours (Table) 09/23/20 09/23/20 09/23/20 Range/Units 08:34 08:34 08:34 WBC 10.8 H (3.8-10.6) k/uL RBC 6.91 H (4.30-5.90) m/uL Hgb (13.0-17.5) gm/dL MCV 63.7 L (80.0-100.0) fL MCH 19.4 L (25.0-35.0) pg MCHC 30.5 L (31.0-37.0) g/dL D-Dimer 3.50 H (<0.60) mg/L FEU Sodium (137-145) mmol/L Chloride 97 L (98-107) mmol/L BUN 68 H (9-20) mg/dL Creatinine 1.75 H (0.66-1.25) mg/dL Glucose 124 H (74-99) mg/dL POC Glucose (mg/dL) (75-99) mg/dL Lactate Dehydrogenase 1462 H (313-618) U/L C-Reactive Protein 16.8 H (<10.0) mg/L 09/23/20 09/23/20 09/23/20 Range/Units 11:46 16:51 20:26 WBC (3.8-10.6) k/uL RBC (4.30-5.90) m/uL Hgb (13.0-17.5) gm/dL MCV (80.0-100.0) fL MCH (25.0-35.0) pg MCHC (31.0-37.0) g/dL D-Dimer (<0.60) mg/L FEU Sodium (137-145) mmol/L Chloride (98-107) mmol/L BUN (9-20) mg/dL Creatinine (0.66-1.25) mg/dL Glucose (74-99) mg/dL POC Glucose (mg/dL) 227 H 339 H 418 H (75-99) mg/dL Lactate Dehydrogenase (313-618) U/L C-Reactive Protein (<10.0) mg/L 09/24/20 09/24/20 09/24/20 Range/Units 06:12 06:59 06:59 WBC (3.8-10.6) k/uL RBC 6.38 H (4.30-5.90) m/uL Hgb 12.5 L (13.0-17.5) gm/dL MCV 63.0 L (80.0-100.0) fL MCH 19.5 L (25.0-35.0) pg MCHC (31.0-37.0) g/dL D-Dimer (<0.60) mg/L FEU Sodium 135 L (137-145) mmol/L Chloride (98-107) mmol/L BUN 73 H (9-20) mg/dL Creatinine 1.92 H (0.66-1.25) mg/dL Glucose 113 H (74-99) mg/dL POC Glucose (mg/dL) 125 H (75-99) mg/dL Lactate Dehydrogenase 1089 H (313-618) U/L C-Reactive Protein 10.8 H (<10.0) mg/L 09/24/20 Range/Units 06:59 WBC (3.8-10.6) k/uL RBC (4.30-5.90) m/uL Hgb (13.0-17.5) gm/dL MCV (80.0-100.0) fL MCH (25.0-35.0) pg MCHC (31.0-37.0) g/dL D-Dimer 1.94 H (<0.60) mg/L FEU Sodium (137-145) mmol/L Chloride (98-107) mmol/L BUN (9-20) mg/dL Creatinine (0.66-1.25) mg/dL Glucose (74-99) mg/dL POC Glucose (mg/dL) (75-99) mg/dL Lactate Dehydrogenase (313-618) U/L C-Reactive Protein (<10.0) mg/L Microbiology - Last 24 Hours (Table) 09/17/20 19:45 Blood Culture - Final Blood No Growth after 144 hours 09/17/20 19:53 Blood Culture - Final Blood No Growth after 144 hours <Mildred Melton - Last Filed: 09/24/20 15:05> Objective - Vital Signs Vital signs: Vital Signs Temp 97.4 F L 09/24/20 12:00 Pulse 76 09/24/20 12:00 Resp 20 09/24/20 12:00 BP 119/68 09/24/20 12:00 Pulse Ox 96 09/24/20 12:00 Intake & Output 09/23/20 09/24/20 09/24/20 18:59 06:59 18:59 Intake Total 1200 660 Balance 1200 660 Weight 86 kg Intake: Oral 1200 660 Other: Voiding Method External Catheter - Labs CBC & Chem 7: 09/24/20 06:59 09/24/20 06:59 Labs: Abnormal Lab Results - Last 24 Hours (Table) 09/23/20 09/23/20 09/24/20 Range/Units 16:51 20:26 06:12 RBC (4.30-5.90) m/uL Hgb (13.0-17.5) gm/dL MCV (80.0-100.0) fL MCH (25.0-35.0) pg D-Dimer (<0.60) mg/L FEU Sodium (137-145) mmol/L BUN (9-20) mg/dL Creatinine (0.66-1.25) mg/dL Glucose (74-99) mg/dL POC Glucose (mg/dL) 339 H 418 H 125 H (75-99) mg/dL Lactate Dehydrogenase (313-618) U/L C-Reactive Protein (<10.0) mg/L 09/24/20 09/24/20 09/24/20 Range/Units 06:59 06:59 06:59 RBC 6.38 H (4.30-5.90) m/uL Hgb 12.5 L (13.0-17.5) gm/dL MCV 63.0 L (80.0-100.0) fL MCH 19.5 L (25.0-35.0) pg D-Dimer 1.94 H (<0.60) mg/L FEU Sodium 135 L (137-145) mmol/L BUN 73 H (9-20) mg/dL Creatinine 1.92 H (0.66-1.25) mg/dL Glucose 113 H (74-99) mg/dL POC Glucose (mg/dL) (75-99) mg/dL Lactate Dehydrogenase 1089 H (313-618) U/L C-Reactive Protein 10.8 H (<10.0) mg/L 09/24/20 Range/Units 11:37 RBC (4.30-5.90) m/uL Hgb (13.0-17.5) gm/dL MCV (80.0-100.0) fL MCH (25.0-35.0) pg D-Dimer (<0.60) mg/L FEU Sodium (137-145) mmol/L BUN (9-20) mg/dL Creatinine (0.66-1.25) mg/dL Glucose (74-99) mg/dL POC Glucose (mg/dL) 151 H (75-99) mg/dL Lactate Dehydrogenase (313-618) U/L C-Reactive Protein (<10.0) mg/L Microbiology - Last 24 Hours (Table) 09/17/20 19:45 Blood Culture - Final Blood No Growth after 144 hours 09/17/20 19:53 Blood Culture - Final Blood No Growth after 144 hours Assessment and Plan Assessment: Patient seen and examined independently. Patient was also seen by Paul Vieyra NP and case was discussed. I am in agreement with subjective, physical exam, assessment and plan as written above and amended below. Complains of significant constipation. Wants to go out of bed to have a bowel movement. Wants something for constipation. General: non toxic, no distress, appears at stated age Derm: warm, dry Head: atraumatic, normocephalic, symmetric Eyes: EOMI, no lid lag, anicteric sclera Mouth: no lip lesion, mucus membranes moist Cardiovascular: S1S2 reg, no murmur, right lower extremity BKA Lungs: Decreased breath sounds bilateral (improving daily), no rhonchi, no rales , no accessory muscle use Abdominal: soft, nontender to palpation, no guarding, no appreciable organomegaly Ext: no gross muscle atrophy, no edema, no contractures Neuro: CN II-XI grossly intact, no focal neuro deficits Psych: Alert, oriented, appropriate affect Constipation -MiraLAX -Can use bedside commode
[2020-09-24] MEDS: polyethylene glycoL 3350 17 GM POWD.PACK PO SCH (10:34)
[2020-09-24 11:38] LABS: Glucose,Whole Blood 151 mg/dL (75-99)
--- NOTE | 2020-09-24 12:50 | P.PN ---
Subjective Progress Note Date: 09/24/20 CHIEF COMPLAINT: Ejection fraction 25% HISTORY OF PRESENT ILLNESS: 09/23/2020 This is a 69-year old male with a past medical history significant for diabetes mellitus and right BKA. 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 We have been asked to see the patient in consultation for decreased ejection fraction. Patient is admitted to the hospital secondary to Covid 19. Echocardiogram completed revealed ejection fraction 25-30%. There is no previous ech ocardiogram in the computer for comparison. Patient had a syncopal episode this morning while on the bedside commode. Believed to be vasovagal in nature. No arrhythmias noted on telemetry. Patient is currently on 100% nonrebreather. Blood pressure 112/52. Heart rate in the 70s. He is afebrile. Creatinine increased today to 1.75, from 1.47 yesterday. Patient remains on IV lasix. 09/24/2020 Patient was transitioned to oral Lasix yesterday. Creatinine increased from 1.75-1.92 today. He remains on 15 L high flow cannula. Blood pressure 119/60. Heart rate in the 70s. PHYSICAL EXAM: Thorough physical exam not completed secondary to limited evaluation/examination and due to Covid19 ASSESSMENT: Covid 19 Acute hypoxic respiratory failure Cardiomyopathy, may be secondary to Covid, cannot rule out underlying coronary disease Acute kidney injury, unknown if patient has CKD Diabetes mellitus History of right BKA Syncopal episode, suspect secondary to vasovagal PLAN: Lasix dose has been decreased to once a day Monitor kidney function. Repeat in AM. No KHOA/ARB at this time secondary to kidney function Continue current dose of metoprolol Daily weights Accurate I&O Patient will require cardiac catheterization when he is medically stable and recovered from his Covid infection Further recommendations pending patient's course Nurse practitioner note has been reviewed by physician. Signing provider agrees with the documented findings, assessment, and plan of care. Objective - Vital Signs Vital signs: Vital Signs Temp 97.4 F L 09/24/20 12:00 Pulse 76 09/24/20 12:00 Resp 20 09/24/20 12:00 BP 119/68 09/24/20 12:00 Pulse Ox 96 09/24/20 12:00 Intake & Output 09/23/20 09/24/20 09/24/20 18:59 06:59 18:59 Intake Total 1200 660 Balance 1200 660 Weight 86 kg Intake: Oral 1200 660 Other: Voiding Method External Catheter - Labs CBC & Chem 7: 09/24/20 06:59 09/24/20 06:59 Labs: Abnormal Lab Results - Last 24 Hours (Table) 09/23/20 09/23/20 09/24/20 Range/Units 16:51 20:26 06:12 RBC (4.30-5.90) m/uL Hgb (13.0-17.5) gm/dL MCV (80.0-100.0) fL MCH (25.0-35.0) pg D-Dimer (<0.60) mg/L FEU Sodium (137-145) mmol/L BUN (9-20) mg/dL Creatinine (0.66-1.25) mg/dL Glucose (74-99) mg/dL POC Glucose (mg/dL) 339 H 418 H 125 H (75-99) mg/dL Lactate Dehydrogenase (313-618) U/L C-Reactive Protein (<10.0) mg/L 09/24/20 09/24/20 09/24/20 Range/Units 06:59 06:59 06:59 RBC 6.38 H (4.30-5.90) m/uL Hgb 12.5 L (13.0-17.5) gm/dL MCV 63.0 L (80.0-100.0) fL MCH 19.5 L (25.0-35.0) pg D-Dimer 1.94 H (<0.60) mg/L FEU Sodium 135 L (137-145) mmol/L BUN 73 H (9-20) mg/dL Creatinine 1.92 H (0.66-1.25) mg/dL Glucose 113 H (74-99) mg/dL POC Glucose (mg/dL) (75-99) mg/dL Lactate Dehydrogenase 1089 H (313-618) U/L C-Reactive Protein 10.8 H (<10.0) mg/L 09/24/20 Range/Units 11:37 RBC (4.30-5.90) m/uL Hgb (13.0-17.5) gm/dL MCV (80.0-100.0) fL MCH (25.0-35.0) pg D-Dimer (<0.60) mg/L FEU Sodium (137-145) mmol/L BUN (9-20) mg/dL Creatinine (0.66-1.25) mg/dL Glucose (74-99) mg/dL POC Glucose (mg/dL) 151 H (75-99) mg/dL Lactate Dehydrogenase (313-618) U/L C-Reactive Protein (<10.0) mg/L Microbiology - Last 24 Hours (Table) 09/17/20 19:45 Blood Culture - Final Blood No Growth after 144 hours 09/17/20 19:53 Blood Culture - Final Blood No Growth after 144 hours
--- NOTE | 2020-09-24 14:24 | P.PN ---
Subjective Progress Note Date: 09/24/20 Principal diagnosis: CoVID 19 pneumonia 69-year-old male, who presented to the emergency department, on 09/17/2020. The patient apparently came in with complaints of shortness of breath, fever, and recently being tested positive for COVID 19. The patient hasn't been feeling we ll for a couple weeks now, and about 5 or 6 days ago, was tested here at this hospital and was positive for coronavirus. The patient was not having major issues at that time, and therefore was discharged home. More recently, over the last couple of days, he states that he is becoming more more symptomatic. He had muscle aches, poor appetite, loss of taste, just feeling fatigued, and shortness of breath on exertion. No fever or chills. He wasn't coughing up any phlegm. His cough is mostly nonproductive. He denied any chest pain or chest discomfort. There is no nausea, vomiting, diarrhea, or abdominal pain. A chest x-ray was done and showed bilateral infiltrates, and, his white count was 4.5, hemoglobin 13, hematocrit 41.5, and platelet count 312,000. D-dimer was 32.24, PaO2 was 64, with a PaCO2 of 28 and a pH is 7.49. Sodium was 135, potassium 4.3, chlorides 100, CO2 23, anion gap 12, BUN 56, and creatinine 1.77. Lactic acid was 2.1, LDH was 2084, and C-reactive protein was 66.4. Pro-calcitonin was 0.74. The patient is a lifelong nonsmoker, and his only major medical problem was that of diabetes. He is status post right BKA. Progress note dated 09/19/2020. This is a 69-year-old male that we saw in consultation yesterday. He presented to the emergency department on September 17, complaining of shortness of breath, fever, and recently been tested positive for COVID 19. Currently, the patient's on O2 at about 7-8 L/m high flow. He is feeling a bit better today. To look at the patient, he appears in no distress. He's not having any conversational dyspnea, audible wheezing, use of accessory muscles. He looks very comfortable. I told him we could not discharge him from the hospital till as oxygen requirements are down below 5 L/m. His only other medical problem is that of diabetes. He is a lifelong nonsmoker. White count is 5.1, hemoglobin 11.9, hematocrit 37.5, platelet count 181,000, sodium 137, potassium 3.7, chloride 107, CO2 24, anion gap 6, BUN 60, and creatinine 1.60. Patient is seen today 09/20/2020 in follow-up on the selective care unit. He is currently sitting up in a chair at the bedside. Awake and alert in no acute distress. Breathing better today compared to yesterday. Still requiring 15 L high flow nasal cannula to maintain O2 saturation in the 90s. He's been afebrile. He has received 1 unit of convalescent plasma. Blood cultures reveal no growth. White count 4.4. Hemoglobin 11.8. Platelets 149. Lymphocytes 0.3. Sodium 139. Potassium 3.8. Creatinine 1.41. He remains on dexamethasone, Lovenox, vitamin supplements. The patient is seen today 09/21/2020 in follow-up on the selective care unit. Currently resting fairly comfortably in bed. Last evening he started having increasing shortness of breath. He is now on 15 L high phone nasal cannula in addition to a nonrebreather mask to maintain O2 saturation in the low 90s. He is afebrile. Hemodynamically stable. Chest x-ray reveals stable patchy bilate ral infiltrates. Doppler of the left lower extremity was negative for DVT. Echocardiogram reveals severely impaired left ventricular systolic function with ejection fraction 25-30%. No evidence of thrombus. Blood culture reveals no growth. White count 6.8. Hemoglobin 12.6. D-dimer 6.29. Sodium 139. Potassium 3.8. Creatinine 1.28. LDH 635. C-reactive protein 19.9. He remains on Lovenox, dexamethasone, vitamin supplements. The patient is seen today 09/22/2020 in follow-up on the selective care unit. He is currently sitting up in bed. Awake and alert in no acute distress. He is still requiring 15 L high flow nasal cannula to maintain O2 saturation at 90%. 0.9 normal saline at KVO. He did receive tocilizumab and convalescent plasma. Remains on Lovenox, Decadron, vitamin supplements. The patient is seen today 09/23/2020 in follow-up on the selective care unit. Presently he is sitting up in the bed awake and alert in no acute distress. Earlier this morning while the patient was having a bowel movement he developed a bradycardic episode of syncope and CODE BLUE was called but the patient had return of spontaneous circulation. He denies any chest discomfort and dizziness or lightheadedness. He denies any worsening shortness of breath, cough or congestion. His x-ray continues to show patchy mid and lower lung field infiltrates compatible with resolving atypical pneumonia. Platelike atelectasis in the right lung base. Still requiring 15 L high flow nasal cannula in addition to a nonrebreather mask to maintain O2 saturations in the 90s. He's been afebrile. Hemodynamically stable. White count 10.8. Hemoglobin 13.4. D- dimer 3.50. Sodium 137. Potassium 3.6. Creatinine 1.75. LDH 1462. C- reactive protein 16.8. Markers are trending down. He has received tocilizumab and convalescent plasma. He remains on Lovenox, dexamethasone, vitamin supplements. The patient is seen today 09/24/2020 in follow-up on the selective care unit. He is currently sitting up in bed. Awake and alert in no acute distress. No further episodes of syncope or vasovagal episodes. He is still requiring 15 L high flow nasal cannula to maintain O2 saturations in the 90s. He is not requiring a nonrebreather mask this morning. He did receive convalescent plasma. He received tocilizumab. Continued on Lovenox, Decadron, vitamin supplements. White count 10.4. Hemoglobin 12.5. D-dimer 1.94. Sodium 135. Potassium 4.1. Creatinine 1.92. LDH 1089. C-reactive protein 10.8. Objective - Vital Signs Vital signs: Vital Signs Temp 97.4 F L 09/24/20 12:00 Pulse 76 09/24/20 12:00 Resp 20 09/24/20 12:00 BP 119/68 09/24/20 12:00 Pulse Ox 96 09/24/20 12:00 Intake & Output 09/23/20 09/24/20 09/24/20 18:59 06:59 18:59 Intake Total 1200 660 Balance 1200 660 Weight 86 kg Intake: Oral 1200 660 Other: Voiding Method External Catheter - Exam GENERAL EXAM: Alert, pleasant 69-year-old gentleman, and 15 L high flow nasal cannula, comfortable in no apparent distress. HEAD: Normocephalic. EYES: Normal reaction of pupils, equal size. NOSE: Clear with pink turbinates. THROAT: No erythema or exudates. NECK: No masses, no JVD. CHEST: No chest wall deformity. LUNGS: Equal air entry with crackles in the bilateral posterior bases. CVS: S1 and S2 normal with an audible murmur, regular rhythm. ABDOMEN: No hepatosplenomegaly, normal bowel sounds, no guarding or rigidity. SPINE: No scoliosis or deformity SKIN: No rashes CENTRAL NERVOUS SYSTEM: No focal deficits, tone is normal in all 4 extremities. EXTREMITIES: There is no peripheral edema. No clubbing, no cyanosis. Peripheral pulses are intact. - Labs CBC & Chem 7: 09/24/20 06:59 09/24/20 06:59 Labs: Abnormal Lab Results - Last 24 Hours (Table) 09/23/20 09/23/20 09/24/20 Range/Units 16:51 20:26 06:12 RBC (4.30-5.90) m/uL Hgb (13.0-17.5) gm/dL MCV (80.0-100.0) fL MCH (25.0-35.0) pg D-Dimer (<0.60) mg/L FEU Sodium (137-145) mmol/L BUN (9-20) mg/dL Creatinine (0.66-1.25) mg/dL Glucose (74-99) mg/dL POC Glucose (mg/dL) 339 H 418 H 125 H (75-99) mg/dL Lactate Dehydrogenase (313-618) U/L C-Reactive Protein (<10.0) mg/L 09/24/20 09/24/20 09/24/20 Range/Units 06:59 06:59 06:59 RBC 6.38 H (4.30-5.90) m/uL Hgb 12.5 L (13.0-17.5) gm/dL MCV 63.0 L (80.0-100.0) fL MCH 19.5 L (25.0-35.0) pg D-Dimer 1.94 H (<0.60) mg/L FEU Sodium 135 L (137-145) mmol/L BUN 73 H (9-20) mg/dL Creatinine 1.92 H (0.66-1.25) mg/dL Glucose 113 H (74-99) mg/dL POC Glucose (mg/dL) (75-99) mg/dL Lactate Dehydrogenase 1089 H (313-618) U/L C-Reactive Protein 10.8 H (<10.0) mg/L 09/24/20 Range/Units 11:37 RBC (4.30-5.90) m/uL Hgb (13.0-17.5) gm/dL MCV (80.0-100.0) fL MCH (25.0-35.0) pg D-Dimer (<0.60) mg/L FEU Sodium (137-145) mmol/L BUN (9-20) mg/dL Creatinine (0.66-1.25) mg/dL Glucose (74-99) mg/dL POC Glucose (mg/dL) 151 H (75-99) mg/dL Lactate Dehydrogenase (313-618) U/L C-Reactive Protein (<10.0) mg/L Microbiology - Last 24 Hours (Table) 09/17/20 19:45 Blood Culture - Final Blood No Growth after 144 hours 09/17/20 19:53 Blood Culture - Final Blood No Growth after 144 hours Assessment and Plan Assessment: 1 Acute hypoxemic respiratory failure secondary to CoVID 19 pneumonia. Outside the window for Remdesivir. Did receive tocilizumab, convalescent plasma. 2 Severe left ventricular systolic function with ejection fraction 25-30% 3 Diabetes mellitus 4 Lifelong nonsmoker 5 History of right below the knee amputation 6 Syncope with bradycardia, suspect vasovagal during bowel movement Plan: The patient was seen and evaluated by Dr. Marie Improving from the pulmonary standpoint Titrate down the FiO2 as tolerated Current treatment plan We will continue to follow I, the cosigning physician, performed a history & physical examination of the patient. Lungs sounds with crackles in the posterior bases. Maintaining good O2 saturations in the 90s on 15 L high flow nasal cannula. I discussed the assessment and plan of care with my nurse practitioner, Nathalia Ruvalcaba. I attest to the above note as dictated by her.
[2020-09-24 16:39] LABS: Glucose,Whole Blood 283 mg/dL (75-99)
[2020-09-24 20:41] LABS: Glucose,Whole Blood 373 mg/dL (75-99)
[2020-09-24] MEDS: INSULIN DETEMIR (LEVEMIR) 100 UNIT/ML SYR SQ SCH (20:51)
[2020-09-25 05:55] LABS: Glucose,Whole Blood 194 mg/dL (75-99)
[2020-09-25 07:26] LABS: HCT 37.8 % (39.0-53.0); HGB 12.1 gm/dL (13.0-17.5); Hypochromasia Slight; MCHC 31.9 g/dL (31.0-37.0); MCV 62.7 fL (80.0-100.0); Mean Platelet Volume 6.9; Microcytosis Marked; Platelet Count 165 k/uL (150-450); RBC 6.03 m/uL (4.30-5.90); RDW 14.3 % (11.5-15.5); WBC 9.4 k/uL (3.8-10.6)
[2020-09-25 07:41] LABS: Calcium 9.3 mg/dL (8.4-10.2); Magnesium 1.9 mg/dL (1.6-2.3); Potassium 4.5 mmol/L (3.5-5.1)
--- NOTE | 2020-09-25 07:59 | CDI ---
Documentation Clarification Form Date: 09/22/2020 03:35:00 PM From: Naina Fernandez RN CCDS Admit Date: 09/17/2020 09:08:00 PM Patient Name: Miki Stockton Visit Number: [id number] Discharge Date: ATTENTION: The Clinical Documentation Specialists (CDI) and [facility] Coding Staff appreciate your assistance in clarifying documentation. Please respond to the clarification below the line at the bottom and electronically sign. The CDI & [facility] Coding staff will review the response and follow-up if needed. Please note: Queries are made part of the Legal Health Record. If you have any questions, please contact the author of this message via ITS. Dr. Harrison Alatorre, The patient is being treated with Lasix IV and Toprol XL. History/Risk Factors: 69-year-old male presents to the ED with generalized weakness, dyspnea and cough. Tested positive for COVID five days prior to presentation. 09/17 HP. Cardiology was consulted for decreased ejection fraction. Medical History DM and right BKA. Cardiology consult 09/22. Clinical Indicators: Cardiomyopathy, may be secondary to COVID, cannot rule out underlying coronary disease. Cardiology consult 09/22. VS/Pulse OX 09/21 04:32: B/P 146/89; HR 76; RR 17; Temp 97.9 F Oral; SpO2 92% 15L High Flow oxygen. BNP 09/22: 3630 Echocardiogram Results 09/21: Left ventricular systolic function severely impaired EF 25-30%. Mild aortic valve sclerosis. Mild aortic valve sclerosis. Trace /mild (physiologic) pulmonic regurgitation. Chest X Ray 09/21: Stable patchy bilateral infiltrate. Treatment: Lasix 40mg IV x1 09/21; Lasix 40mg IV Q12HR 09/21 to current. Toprol XL 25mg PO Daily 09/22 to current. Lisinopril 2.5mg PO Daily (one dose given) 09/22 d/cd 09/22. In your professional opinion, can you please clarify if the diagnosis of the treatment? Acute Systolic Heart Failure (reduced EF) Heart Failure Ruled Out Unable to Determine Other, please specify Documented in Dr. Cobos progress note 09/27 : Acute on chronic systolic heart failure. (Last Revision: October 2017) MTDD
[2020-09-25] MEDS: CHOLECALCIFEROL 25 MCG (1000 IU) TABLET PO SCH (08:32)
[2020-09-25] MEDS: FUROSEMIDE 40 MG TAB PO SCH (08:32)
[2020-09-25] MEDS: ASCORBIC ACID 500 MG TAB PO SCH (08:32)
[2020-09-25] MEDS: INSULIN ASPART (NovoLOG) 100 UNIT/ML VIAL SQ SCH ×7 (08:32→20:43)
[2020-09-25] MEDS: polyethylene glycoL 3350 17 GM POWD.PACK PO SCH (08:32)
[2020-09-25] MEDS: ZINC SULFATE 220 MG CAP PO SCH (08:32)
[2020-09-25] MEDS: dexAMETHasone 2 MG TAB PO SCH (08:32)
[2020-09-25] MEDS: METOPROLOL SUCCINATE (ER) 25 MG TAB.ER.24H PO SCH (08:33)
[2020-09-25] MEDS: ENOXAPARIN 40 MG/0.4 ML SYRINGE SQ SCH ×2 (08:33→20:43)
--- NOTE | 2020-09-25 10:09 | P.PN ---
<Paul Vieyra - Last Filed: 09/25/20 09:46> Subjective Progress Note Date: 09/25/20 Principal diagnosis: Covid Pneumonitis with acute hypoxemic respiratory failure Hospital course: Patient is a 69-year-old male with a past medical history of type 2 insulin- dependent diabetes mellitus and right BKA. Patient was diagnosed with Covid 19 virus infection on 09/12/20 and continued to have increasing shortness of breath and fatigue accompanied by muscle aches, poor appetite, and loss of taste resulting in him coming to the hospital for evalution.Upon arrival he was found to be in acute respiratory failure with hypoxia with SPO2 78% on room air re quiring BIPAP with supplemental oxygenation. Lab findings revealed an elevated d-dimer of 32.24; respiratory alkalosis with pCO2 of 28, PaO2 of 64, and pH of 7.49; elevated lactate of 2.1; ferritin of 1679.6; LDH 2084; troponin 0.146; CRP is 66.4; a KCI with BUN of 56, creatinine 1.77, and GFR of 38; and pro- calcitonin of 0.74. As a result, Mr. Stockton was admitted to the hospital on 09/17/20 for acute respiratory failure with hypoxia resulting from Covid 19 virus infection with pneumonitis. Upon admission and chest x-ray was positive for bilateral multifocal pneumonia. His EKG revealed normal sinus rhythm at 83 bpm with a prolonged QT/QTC of 422/495 ms, no T-wave or ST abnormalities noted. Patient has been on Decadron 6 mg daily with today being day 9 of 10. Patient also being treated with vitamin C, vitamin D, and zinc. DVT prophylaxis with Lovenox. Patient continues to be in hypoxic respiratory failure on high flow NC at 10 L via high flow nasal cannula at this time with SPO2 93%. Repeat chest x- ray completed 09/21/20 showing stable patchy bilateral infiltrates with hyperinfl ation. Venous Doppler of left lower extremity negative for DVTs. Echocardiogram revealed mild concentric LVH with a severely impaired ejection fraction of 25- 30%. Patient being diuresed with Lasix and is on metoprolol. Pulmonology and cardiology following along closely with our hospitalist team. Physical exam: 09/25/20: Patient was seen and evaluated at the bedside this morning. He reports that he continues to feel better this morning. He has remained on 15L high flow O2 for >36 hours and has been maintaining oxygen saturations well. Currently SpO2 was 99% on 15 L, oxygen was turned down to 10 L at this time and O2 sats maintained at 93%. He reports feeling mildly constipated and MiraLAX order placed twice daily. Patient continues to deny having any headache, lightheadedness, dizziness, chest pain, palpitations, shortness of breath, abdominal pain, nausea, vomiting, diarrhea, or any other complaints at this time. Order placed for patient to be evaluated tomorrow by PT/OT, important to evaluate patient's stamina and ability to ambulate and anticipate any required assistance that may be needed secondary to patient's prolonged time being immobile with this extended hospital stay. General: non toxic, no distress, appears at stated age Derm: warm, dry Head: atraumatic, normocephalic, symmetric Eyes: EOMI, no lid lag, anicteric sclera Mouth: no lip lesion, mucus membranes moist Cardiovascular: S1S2 normal with regular rate and rhythm, no murmur, positive posterior tibial pulses bilaterally, no lower extremity edema. Lungs: Respirations even, regular, and unlabored on 10 L O2 via high flow nasal cannula with SpO2 93%. Upon auscultation of lungs, clear to auscultation with the exception of soft crackles at bilateral bases. No coarse rhonchi, wheezes, or rales noted this morning. No accessory muscle usage. Abdominal: Soft, nontender to palpation, no guarding, and no appreciable organomegaly. Ext: No gross muscle atrophy, no edema, no contractures, patient has right BKA. Neuro: Speech clear, GCS 15. CN II-XII grossly intact, no focal neuro deficits Psych: Alert and oriented to person, place, time, and situation. Pleasant, positive and appropriate affect. Assessment and Plan of Care: Covid pneumonitis resulting in acute hypoxic respiratory failure -Patient decreased O2 needs down to 10 L high flow nasal cannula with SpO2 93%. Will continue to wean as patient tolerates. -Inflammatory markers improved. CRP 10.8 from initial 66.4, LDH currently 1089 from initial 4 and d-dimer 1.94 from initial 32.24. -Continue Decadron 6 mg daily, today is day 9 of 10. -Continue vitamin C, vitamin D, and zinc. -Continue MDIs as needed. -Patient received convalescent plasma and Toclilizumab. -Pulmonology is following along closely, appreciate further recommendations. -Continue DVT prophylaxis with Lovenox. -Order placed for patient to be evaluated tomorrow by PT/OT, important to evaluate patient's stamina and ability to ambulate and anticipate any required assistance that may be needed secondary to patient's prolonged time being immobile with this extended hospital stay. Severely impaired left ventricular systolic function with an ejection fraction of 25-30% -Cardiology following, appreciate further recommendations. -Cardiology transition patient from IV to oral Lasix 40 mg twice a day. -We will continue to monitor Strict I's and O's. -Continuous telemetry monitoring. -Continue metoprolol 25 mg daily. Syncopal episode, likely secondary to vasovagal event -Continuous telemetry monitoring -Fall precautions -Monitor vital signs Acute kidney injury, improving -Elevation in renal function with BUN of 80, creatinine 1.74, and GFR of 39. -Continue Lasix 40 mg orally once daily.. -We will continue to monitor closely with repeat a.m. labs to evaluate renal function along with electrolyte values. Insulin-dependent diabetes mellitus type II with hyperglycemia -Glycemic protocol remains in place, secondary to hyperglycemia we have added NovoLog 4 units 3 times daily with meals in addition to NovoLog sliding scale along with Levemir 15 units nightly. -Heart healthy carb consistent diet. Elevated troponin, d-dimer, and inflammatory markers most likely resulting from Covid 19 virus infection -Patient asymptomatic denying having any chest pain, palpitations or further cardiac complaints. -EKG revealed normal sinus rhythm at 83 bpm with a prolonged QT/QTC of 422/495 ms, no T-wave or ST abnormalities noted. -Continuous telemetry monitoring. -Continue DVT prophylaxis with Lovenox. Thrombocytopenia, resolved. CODE STATUS: Full code DVT prophylaxis: Lovenox Discussed with: Patient and RN, offered again to update patient's family. Patient declined, stating he spoke with them yesterday and is keeping his family updated. Anticipated discharge date: Clinical course to determine Anticipated discharge place: Home with home care A total of 45 minutes was spent on the care of this complex patient more than 50% of the time was spent in counseling and care coordination. Objective - Vital Signs Vital signs: Vital Signs Temp 98.2 F 09/25/20 08:00 Pulse 78 03/22/21 08:00 Resp 18 09/25/20 08:00 BP 136/69 09/25/20 08:00 Pulse Ox 99 09/25/20 08:00 Intake & Output 09/24/20 09/25/20 09/25/20 18:59 06:59 18:59 Intake Total 1940 240 Output Total 300 1100 Balance 1640 -1100 240 Weight 84.5 kg Intake: Oral 1940 240 Output: Urine 300 1100 Other: Voiding Method External Catheter # Voids 1 1 - Labs CBC & Chem 7: 09/25/20 07:06 09/25/20 07:06 Labs: Abnormal Lab Results - Last 24 Hours (Table) 09/24/20 09/24/20 09/24/20 Range/Units 11:37 16:38 20:38 RBC (4.30-5.90) m/uL Hgb (13.0-17.5) gm/dL Hct (39.0-53.0) % MCV (80.0-100.0) fL MCH (25.0-35.0) pg Sodium (137-145) mmol/L BUN (9-20) mg/dL Creatinine (0.66-1.25) mg/dL Glucose (74-99) mg/dL POC Glucose (mg/dL) 151 H 283 H 373 H (75-99) mg/dL 09/25/20 09/25/20 09/25/20 Range/Units 05:47 07:06 07:06 RBC 6.03 H (4.30-5.90) m/uL Hgb 12.1 L (13.0-17.5) gm/dL Hct 37.8 L (39.0-53.0) % MCV 62.7 L (80.0-100.0) fL MCH 20.0 L (25.0-35.0) pg Sodium 133 L (137-145) mmol/L BUN 80 H (9-20) mg/dL Creatinine 1.74 H (0.66-1.25) mg/dL Glucose 197 H (74-99) mg/dL POC Glucose (mg/dL) 194 H (75-99) mg/dL <Mildred Melton - Last Filed: 09/25/20 20:13> Objective - Vital Signs Vital signs: Vital Signs Temp 98.1 F 09/25/20 16:00 Pulse 74 09/25/20 16:00 Resp 18 09/25/20 16:00 BP 114/67 09/25/20 16:00 Pulse Ox 96 09/25/20 16:08 Intake & Output 09/25/20 09/25/20 09/26/20 06:59 18:59 06:59 Intake Total 660 Output Total 1100 Balance -1100 660 Weight 84.5 kg Intake: Oral 660 Output: Urine 1100 Other: Voiding Method External Catheter # Voids 1 - Labs CBC & Chem 7: 09/25/20 07:06 09/25/20 07:06 Labs: Abnormal Lab Results - Last 24 Hours (Table) 09/24/20 09/25/20 09/25/20 Range/Units 20:38 05:47 07:06 RBC 6.03 H (4.30-5.90) m/uL Hgb 12.1 L (13.0-17.5) gm/dL Hct 37.8 L (39.0-53.0) % MCV 62.7 L (80.0-100.0) fL MCH 20.0 L (25.0-35.0) pg Sodium (137-145) mmol/L BUN (9-20) mg/dL Creatinine (0.66-1.25) mg/dL Glucose (74-99) mg/dL POC Glucose (mg/dL) 373 H 194 H (75-99) mg/dL 09/25/20 09/25/20 09/25/20 Range/Units 07:06 12:17 16:57 RBC (4.30-5.90) m/uL Hgb (13.0-17.5) gm/dL Hct (39.0-53.0) % MCV (80.0-100.0) fL MCH (25.0-35.0) pg Sodium 133 L (137-145) mmol/L BUN 80 H (9-20) mg/dL Creatinine 1.74 H (0.66-1.25) mg/dL Glucose 197 H (74-99) mg/dL POC Glucose (mg/dL) 161 H 226 H (75-99) mg/dL Assessment and Plan Assessment: Patient seen and examined independently. Patient was also seen by Paul Jarrell, [employer] and case was discussed. I am in agreement with subjective, physical exam, assessment and plan as written above and amended below. He is feeling better and breathing is well, he is getting board. He reports that his biggest poroblem is no BM still despite miralax General: non toxic, no distress, appears at stated age Derm: warm, dry Head: atraumatic, normocephalic, symmetric Eyes: EOMI, no lid lag, anicteric sclera Mouth: no lip lesion, mucus membranes moist Cardiovascular: S1S2 reg, no murmur, right BKA Lungs: Decreased bs bilateral bases, no rhonchi, no rales , no accessory muscle use Abdominal: soft, nontender to palpation, no guarding, no appreciable organomegaly Ext: no gross muscle atrophy, no edema, no contractures Neuro: CN II-XI grossly intact, no focal neuro deficits Psych: Alert, oriented, appropriate affect COVID 19 pneumonia accessory respiratory failure. Patient will complete course of Decadron in a.m. Currently working and weaning oxygen. Anticipate the patient was agreeable to be discharged the next 1-2 days. If renal function continues to stabilize. Diabetes mellitus type 2 with hyperglycemia -Improvement in blood sugars over yesterday. Continue with current course of sliding scale, fixed dose, and long-acting insulin. Anticipate this will need to be decreased on discharge home as patient will be off of steroids.
--- NOTE | 2020-09-25 10:57 | P.PN ---
Subjective Progress Note Date: 09/25/20 CoVID 19 pneumonia 69-year-old male, who presented to the emergency department, on 09/17/2020. The patient apparently came in with complaints of shortness of breath, fever, and recently being tested positive for COVID 19. The patient hasn't been feeling well for a couple weeks now, and about 5 or 6 days ago, was tested here at this hospital and was positive for coronavirus. The patient was not having major issues at that time, and therefore was discharged home. More recently, over the last couple of days, he states that he is becoming more more symptomatic. He had muscle aches, poor appetite, loss of taste, just feeling fatigued, and shortness of breath on exertion. No fever or chills. He wasn't coughing up any phlegm. His cough is mostly nonproductive. He denied any chest pain or chest discomfort. There is no nausea, vomiting, diarrhea, or abdominal pain. A chest x-ray was done and showed bilateral infiltrates, and, his white count was 4.5, hemoglobin 13, hematocrit 41.5, and platelet count 312,000. D-dimer was 32.24, PaO2 was 64, with a PaCO2 of 28 and a pH is 7.49. Sodium was 135, potassium 4.3, chlorides 100, CO2 23, anion gap 12, BUN 56, and creatinine 1.77. Lactic a dorota was 2.1, LDH was 2084, and C-reactive protein was 66.4. Pro-calcitonin was 0.74. The patient is a lifelong nonsmoker, and his only major medical problem was that of diabetes. He is status post right BKA. Progress note dated 09/19/2020. This is a 69-year-old male that we saw in consultation yesterday. He presented to the emergency department on September 17, complaining of shortness of breath, fever, and recently been tested positive for COVID 19. Currently, the patient's on O2 at about 7-8 L/m high flow. He is feeling a bit better today. To look at the patient, he appears in no distress. He's not having any conversational dyspnea, audible wheezing, use of accessory muscles. He looks very comfortable. I told him we could not discharge him from the hospital till as oxygen require ments are down below 5 L/m. His only other medical problem is that of diabetes. He is a lifelong nonsmoker. White count is 5.1, hemoglobin 11.9, hematocrit 37.5, platelet count 181,000, sodium 137, potassium 3.7, chloride 107, CO2 24, anion gap 6, BUN 60, and creatinine 1.60. Patient is seen today 09/20/2020 in follow-up on the selective care unit. He is currently sitting up in a chair at the bedside. Awake and alert in no acute distress. Breathing better today compared to yesterday. Still requiring 15 L high flow nasal cannula to maintain O2 saturation in the 90s. He's been afebrile. He has received 1 unit of convalescent plasma. Blood cultures reveal no growth. White count 4.4. Hemoglobin 11.8. Platelets 149. Lymphocytes 0.3. Sodium 139. Potassium 3.8. Creatinine 1.41. He remains on dexamethasone, Lovenox, vitamin supplements. The patient is seen today 09/21/2020 in follow-up on the selective care unit. Currently resting fairly comfortably in bed. Last evening he started having increasing shortness of breath. He is now on 15 L high phone nasal cannula in addition to a nonrebreather mask to maintain O2 saturation in the low 90s. He is afebrile. Hemodynamically stable. Chest x-ray reveals stable patchy bilateral infiltrates. Doppler of the left lower extremity was negative for DVT. Echocardiogram reveals severely impaired left ventricular systolic fu nction with ejection fraction 25-30%. No evidence of thrombus. Blood culture reveals no growth. White count 6.8. Hemoglobin 12.6. D-dimer 6.29. Sodium 139. Potassium 3.8. Creatinine 1.28. LDH 635. C-reactive protein 19.9. He remains on Lovenox, dexamethasone, vitamin supplements. The patient is seen today 09/22/2020 in follow-up on the selective care unit. He is currently sitting up in bed. Awake and alert in no acute distress. He is still requiring 15 L high flow nasal cannula to maintain O2 saturation at 90%. 0.9 normal saline at KVO. He did receive tocilizumab and convalescent plasma. Remains on Lovenox, Decadron, vitamin supplements. The patient is seen today 09/23/2020 in follow-up on the selective care unit. Presently he is sitting up in the bed awake and alert in no acute distress. Earlier this morning while the patient was having a bowel movement he developed a bradycardic episode of syncope and CODE BLUE was called but the patient had return of spontaneous circulation. He denies any chest discomfort and dizziness or lightheadedness. He denies any worsening shortness of breath, cough or congestion. His x-ray continues to show patchy mid and lower lung field infiltrates compatible with resolving atypical pneumonia. Platelike atelectasis in the right lung base. Still requiring 15 L high flow nasal cannula in addition to a nonrebreather mask to maintain O2 saturations in the 90s. He's been afebrile. Hemodynamically stable. White count 10.8. Hemoglobin 13.4. D- dimer 3.50. Sodium 137. Potassium 3.6. Creatinine 1.75. LDH 1462. C-reactiv e protein 16.8. Markers are trending down. He has received tocilizumab and convalescent plasma. He remains on Lovenox, dexamethasone, vitamin supplements. The patient is seen today 09/24/2020 in follow-up on the selective care unit. He is currently sitting up in bed. Awake and alert in no acute distress. No further episodes of syncope or vasovagal episodes. He is still requiring 15 L high flow nasal cannula to maintain O2 saturations in the 90s. He is not requiring a nonrebreather mask this morning. He did receive convalescent plasma. He received tocilizumab. Continued on Lovenox, Decadron, vitamin supplements. White count 10.4. Hemoglobin 12.5. D-dimer 1.94. Sodium 135. Potassium 4.1. Creatinine 1.92. LDH 1089. C-reactive protein 10.8. 09/25/2020 the patient is being seen for a follow-up. The patient was being treated for acute hypoxemic respiratory failure secondary to CoVID 19 pneumonia. Outside the window for Remdesivir. Did receive tocilizumab, convalescent plasma. The patient also has CHF with impaired LV function with an ejection fraction of 25-30%. Patient is diabetic and has previous amputation of the right lower extremity below the knee. Patient is currently on 10 L nasal cannula. The patient is afebrile. The patient is hemodynamically stab le. The patient is also on Decadron 6 mg daily basis. The patient on Levemir insulin 15 it's at bedtime in addition to 4 units of NovoLog with meals and a sliding scale coverage. No new complaints otherwise for now. The most recent LDH from yesterday was 1089 and the CRP was 10.8. Creatinine is at 1.9 from yesterday as the patient has chronic kidney disease. The patient has been weaned down to 10 L of oxygen by nasal cannula and his pulse ox is still Objective - Vital Signs Vital signs: Vital Signs Temp 98.2 F 09/25/20 08:00 Pulse 78 09/25/20 08:00 Resp 18 09/25/20 08:00 BP 136/69 09/25/20 08:00 Pulse Ox 99 09/25/20 08:00 Intake & Output 09/24/20 09/25/20 09/25/20 18:59 06:59 18:59 Intake Total 1940 240 Output Total 300 1100 Balance 1640 -1100 240 Weight 84.5 kg Intake: Oral 1940 240 Output: Urine 300 1100 Other: Voiding Method External Catheter # Voids 1 1 - Exam GENERAL EXAM: Alert, pleasant 69-year-old gentleman, and 10 L high flow nasal cannula, comfortable in no apparent distress. HEAD: Normocephalic. EYES: Normal reaction of pupils, equal size. NOSE: Clear with pink turbinates. THROAT: No erythema or exudates. NECK: No masses, no JVD. CHEST: No chest wall deformity. LUNGS: Equal air entry with crackles in the bilateral posterior bases. CVS: S1 and S2 normal with an audible murmur, regular rhythm. ABDOMEN: No hepatosplenomegaly, normal bowel sounds, no guarding or rigidity. SPINE: No scoliosis or deformity SKIN: No rashes CENTRAL NERVOUS SYSTEM: No focal deficits, tone is normal in all 4 extremities. EXTREMITIES: There is no peripheral edema. No clubbing, no cyanosis. Peripheral pulses are intact. - Labs CBC & Chem 7: 09/25/20 07:06 09/25/20 07:06 Labs: Abnormal Lab Results - Last 24 Hours (Table) 09/24/20 09/24/20 09/24/20 Range/Units 11:37 16:38 20:38 RBC (4.30-5.90) m/uL Hgb (13.0-17.5) gm/dL Hct (39.0-53.0) % MCV (80.0-100.0) fL MCH (25.0-35.0) pg Sodium (137-145) mmol/L BUN (9-20) mg/dL Creatinine (0.66-1.25) mg/dL Glucose (74-99) mg/dL POC Glucose (mg/dL) 151 H 283 H 373 H (75-99) mg/dL 09/25/20 09/25/20 09/25/20 Range/Units 05:47 07:06 07:06 RBC 6.03 H (4.30-5.90) m/uL Hgb 12.1 L (13.0-17.5) gm/dL Hct 37.8 L (39.0-53.0) % MCV 62.7 L (80.0-100.0) fL MCH 20.0 L (25.0-35.0) pg Sodium 133 L (137-145) mmol/L BUN 80 H (9-20) mg/dL Creatinine 1.74 H (0.66-1.25) mg/dL Glucose 197 H (74-99) mg/dL POC Glucose (mg/dL) 194 H (75-99) mg/dL Assessment and Plan Plan: 1 Acute hypoxemic respiratory failure secondary to CoVID 19 pneumonia. Outside the window for Remdesivir. Did receive tocilizumab, convalescent plasma. The patient is currently on 10 L about 2 by nasal cannula. Inflammatory markers remain elevated specially the LDH. The last chest x-ray from 09/23/2020 showed patchy mid and lower lung field infiltrate compatible with pneumonia although there was some improvement. Atelectatic changes was also seen in the right lung base. The patient remains on Decadron. 2 Severe left ventricular systolic function with ejection fraction 25-30% 3 Diabetes mellitus, currently on Levemir insulin 4 Lifelong nonsmoker 5 History of right below the knee amputation 6 Syncope with bradycardia, suspect vasovagal during bowel movement 7 chronic kidney disease in the patient's creatinine is stable Plan: Improving from the pulmonary standpoint currently on 10 L of oxygen by nasal cannula and should be weaned down further as long as the saturation remains above 90% Titrate down the FiO2 as tolerated Current treatment plan Repeat chest x-ray in the inflammatory markers in a.m. Provide the patient incentive spirometer We will continue to follow
[2020-09-25] MEDS ORDERED: bisacodyL 10 MG SUPP RECTAL STA (11:25)
[2020-09-25] MEDS: ALBUTEROL HFA INHALER INHALATION PRN ×3 (12:12→20:04)
[2020-09-25 12:18] LABS: Glucose,Whole Blood 161 mg/dL (75-99)
[2020-09-25 16:59] LABS: Glucose,Whole Blood 226 mg/dL (75-99)
[2020-09-25 20:19] LABS: Glucose,Whole Blood 403 mg/dL (75-99)
[2020-09-25] MEDS: INSULIN DETEMIR (LEVEMIR) 100 UNIT/ML SYR SQ SCH (20:43)
[2020-09-25] MEDS ORDERED: polyethylene glycoL 3350 17 GM POWD.PACK PO SCH (21:00)
[2020-09-25 22:50] LABS: Glucose,Whole Blood 299 mg/dL (75-99)
[2020-09-26 07:16] LABS: Glucose,Whole Blood 145 mg/dL (75-99)
[2020-09-26 07:24] LABS: HCT 36.3 % (39.0-53.0); HGB 11.7 gm/dL (13.0-17.5); Hypochromasia Slight; MCH 20.2 pg (25.0-35.0); MCHC 32.1 g/dL (31.0-37.0); MCV 62.8 fL (80.0-100.0); Microcytosis Marked; Platelet Count 165 k/uL (150-450); RBC 5.78 m/uL (4.30-5.90); RDW 14.3 % (11.5-15.5); WBC 7.5 k/uL (3.8-10.6)
[2020-09-26 07:51] LABS: African American GFR (CKD) 50 (>60 ml/min/1.73 sqM); Anion Gap 4 mmol/L; Blood Urea Nitrogen 81 mg/dL (9-20); C Reactive Protein <5.0 mg/L (<10.0); Calcium 9.3 mg/dL (8.4-10.2); Carbon Dioxide 28 mmol/L (22-30); Chloride 101 mmol/L (98-107); Glucose 137 mg/dL (74-99); Magnesium 1.9 mg/dL (1.6-2.3); Non-African American GFR(CKD) 43 (>60 ml/min/1.73 sqM); Potassium 4.7 mmol/L (3.5-5.1); Sodium 133 mmol/L (137-145)
--- NOTE | 2020-09-26 08:15 | XR ---
EXAMINATION TYPE: XR chest 1V portable DATE OF EXAM: 09/26/2020 COMPARISON: 09/24/2019 HISTORY: Shortness of breath TECHNIQUE: Single frontal view of the chest is obtained. FINDINGS: Bilateral patchy infiltrates are seen at the lung bases. Hyperinflation suggests COPD hear t size is mildly prominent. No sizable thorax. Hypertrophic and degenerative change spine. IMPRESSION: Patchy bilateral infiltrates stable
[2020-09-26] MEDS: ALBUTEROL HFA INHALER INHALATION PRN ×3 (08:19→15:49)
[2020-09-26] MEDS: bisacodyL 10 MG SUPP RECTAL STA ×2 (08:54→18:00)
[2020-09-26] MEDS: CHOLECALCIFEROL 25 MCG (1000 IU) TABLET PO SCH (08:54)
[2020-09-26] MEDS: ZINC SULFATE 220 MG CAP PO SCH (08:55)
[2020-09-26] MEDS: METOPROLOL SUCCINATE (ER) 25 MG TAB.ER.24H PO SCH (08:55)
[2020-09-26] MEDS: FUROSEMIDE 40 MG TAB PO SCH (08:55)
[2020-09-26] MEDS: dexAMETHasone 2 MG TAB PO SCH (08:55)
[2020-09-26] MEDS: INSULIN ASPART (NovoLOG) 100 UNIT/ML VIAL SQ SCH ×7 (08:55→20:51)
[2020-09-26] MEDS: ASCORBIC ACID 500 MG TAB PO SCH (08:55)
[2020-09-26] MEDS: polyethylene glycoL 3350 17 GM POWD.PACK PO SCH (08:56)
[2020-09-26] MEDS: ENOXAPARIN 40 MG/0.4 ML SYRINGE SQ SCH (08:56)
--- NOTE | 2020-09-26 10:50 | P.PN ---
Subjective Progress Note Date: 09/26/20 Principal diagnosis: Covid Pneumonitis with acute hypoxemic respiratory failure Hospital course: Patient is a 69-year-old male with a past medical history of type 2 insulin- dependent diabetes mellitus and right BKA. Patient was diagnosed with Covid 19 virus infection on 09/12/20 and continued to have increasing shortness of breath and fatigue accompanied by muscle aches, poor appetite, and loss of taste resulting in him coming to the hospital for evalution.Upon arrival he was found to be in acute respiratory failure with hypoxia with SPO2 78% on room air requiring BIPAP with supplemental oxygenation. Lab findings revealed an elevated d-dimer of 32.24; respiratory alkalosis with pCO2 of 28, PaO2 of 64, and pH of 7.49; elevated lactate of 2.1; ferritin of 1679.6; LDH 2084; troponin 0.146; CRP is 66.4; a KCI with BUN of 56, creatinine 1.77, and GFR of 38; and pro-calcitonin of 0.74. As a result, Mr. Stockton was admitted to the hospital on 09/17/20 for acute respiratory failure with hypoxia resulting from Covid 19 virus infection with pneumonitis. Upon admission and chest x-ray was positive for bilateral multifocal pneumonia. His EKG revealed normal sinus rhythm at 83 bpm with a prolonged QT/QTC of 422/495 ms, no T-wave or ST abnormalities noted. Patient has been on Decadron 6 mg daily with today being day 10 of 10. Patient also being treated with vitamin C, vitamin D, and zinc. DVT prophylaxis with Lovenox. Repeat chest x-ray completed 09/21/20 showing stable patchy bilateral infiltrates with hyperinflation. Repeat chest x-ray on 09/26/20 again revealing patchy bilateral infiltrates stable. Venous Doppler of left lower extremity negative for DVTs. Echocardiogram revealed mild concentric LVH with a severely impaired ejection fraction of 25-30%. Patient being diuresed with Lasix and is on metoprolol. Pulmonology and cardiology following along closely with our hospitalist team. Physical exam: 09/26/20: Patient was seen and evaluated at the bedside this morning. He continues to show improvement daily. Currently patient on 4 L O2 via high flow nasal cannula and maintaining SpO2 94%. Patient reports breathing is much better, however he reports feeling very weak. PT/OT has been consulted and plan for evaluation today. In addition patient reports that he has not been able to have a bowel movement despite MiraLAX administration. Order placed for Dulcolax suppository at this time. Patient continues to deny having any headache, lightheadedness, dizziness, chest pain, palpitations, shortness of breath, abdominal pain, nausea, vomiting, diarrhea, or any other complaints at this tanesha e. PT/OT to evaluate patient's stamina and ability to ambulate and anticipate any required assistance that may be needed upon discharge. Order placed to obtain an ambulatory pulse ox. Repeat chest x-ray this morning revealing patchy bilateral infiltrates stable. If pt continues to show improvement, plan for likely discharge home tomorrow on home oxygen with [facility]. General: non toxic, no distress, appears at stated age Derm: warm, dry Head: atraumatic, normocephalic, symmetric Eyes: EOMI, no lid lag, anicteric sclera Mouth: no lip lesion, mucus membranes moist Cardiovascular: S1S2 normal with regular rate and rhythm, no murmur, positive posterior tibial pulses bilaterally, no lower extremity edema. Lungs: Respirations even, regular, and unlabored on 4 L O2 via high flow nasal cannula with SpO2 94%. Upon auscultation of lungs, clear to auscultation with the exception of soft crackles at bilateral bases. No coarse rhonchi, wheezes, or rales noted this morning. No accessory muscle usage. Abdominal: Soft, nontender to palpation, no guarding, and no appreciable organomegaly. Ext: No gross muscle atrophy, no edema, no contractures, patient has right BKA. Neuro: Speech clear, GCS 15. CN II-XII grossly intact, no focal neuro deficits Psych: Alert and oriented to person, place, time, and situation. Pleasant, positive and appropriate affect. Assessment and Plan of Care: Covid pneumonitis resulting in acute hypoxic respiratory failure -Patient decreased O2 needs down to 4 L high flow nasal cannula with SpO2 94%. Will continue to wean as patient tolerates. -Inflammatory markers improved. CRP < 5.0 from initial 66.4, LDH 1089 from initial 2084 and d-dimer 1.94 from initial 32.24. -Continue Decadron 6 mg daily, today is day 10 of 10. -Continue vitamin C, vitamin D, and zinc. -Continue MDIs as needed. -Patient received convalescent plasma and Toclilizumab. -Pulmonology is following along closely, appreciate further recommendations. -Continue DVT prophylaxis with Lovenox. -PT/OT to evaluate patient's stamina and ability to ambulate to better anticipate the required assistance pt may need upon discharge after prolonged time being immobile with this extended hospital stay. -Ambulatory pulse ox Severely impaired left ventricular systolic function with an ejection fraction of 25-30% -Cardiology following, appreciate further recommendations. -Cardiology transition patient from IV to oral Lasix 40 mg twice a day. -We will continue to monitor Strict I's and O's. -Continuous telemetry monitoring. -Continue metoprolol 25 mg daily. Syncopal episode, likely secondary to vasovagal event -Continuous telemetry monitoring -Fall precautions -Monitor vital signs -Orthostatic vitals Acute kidney injury, improving -Elevation in renal function with BUN of 81, creatinine 1.61, and GFR of 43. -Continue Lasix 40 mg orally once daily. -We will continue to monitor closely with repeat a.m. labs to evaluate renal function along with electrolyte values. Insulin-dependent diabetes mellitus type II with hyperglycemia -Glycemic protocol remains in place, secondary to hyperglycemia we have added NovoLog 4 units 3 times daily with meals in addition to NovoLog sliding scale along with Levemir 15 units nightly. -Heart healthy carb consistent diet. Elevated troponin, d-dimer, and inflammatory markers most likely resulting from Covid 19 virus infection -Patient asymptomatic denying having any chest pain, palpitations or further cardiac complaints. -EKG revealed normal sinus rhythm at 83 bpm with a prolonged QT/QTC of 422/495 ms, no T-wave or ST abnormalities noted. -Continuous telemetry monitoring. -Continue DVT prophylaxis with Lovenox. Thrombocytopenia, resolved. CODE STATUS: Full code DVT prophylaxis: Lovenox Discussed with: Patient and RN, offered again to update patient's family. Patient declined, stating he spoke with his girlfriend yesterday and is keeping her updated. Anticipated discharge date: Possibly tomorrow morning pending PT/OT evaluation and ambulatory pulse oximetry. Anticipated discharge place: Home with home care A total of 45 minutes was spent on the care of this complex patient more than 50% of the time was spent in counseling and care coordination. Objective - Vital Signs Vital signs: Vital Signs Temp 98.0 F 09/26/20 08:00 Pulse 84 09/26/20 08:00 Resp 20 09/26/20 08:00 BP 138/72 09/26/20 08:00 Pulse Ox 94 L 09/26/20 08:00 Intake & Output 09/25/20 09/26/20 09/26/20 18:59 06:59 18:59 Intake Total 660 240 Output Total 600 Balance 660 -600 240 Weight 85 kg Intake: Oral 660 240 Output: Urine 600 Other: Voiding Method External Catheter - Labs CBC & Chem 7: 09/26/20 07:01 09/26/20 07:01 Labs: Abnormal Lab Results - Last 24 Hours (Table) 09/25/20 09/25/20 09/25/20 Range/Units 12:17 16:57 20:18 Hgb (13.0-17.5) gm/dL Hct (39.0-53.0) % MCV (80.0-100.0) fL MCH (25.0-35.0) pg Sodium (137-145) mmol/L BUN (9-20) mg/dL Creatinine (0.66-1.25) mg/dL Glucose (74-99) mg/dL POC Glucose (mg/dL) 161 H 226 H 403 H (75-99) mg/dL 09/25/20 09/26/20 09/26/20 Range/Units 22:46 07:01 07:01 Hgb 11.7 L (13.0-17.5) gm/dL Hct 36.3 L (39.0-53.0) % MCV 62.8 L (80.0-100.0) fL MCH 20.2 L (25.0-35.0) pg Sodium 133 L (137-145) mmol/L BUN 81 H (9-20) mg/dL Creatinine 1.61 H (0.66-1.25) mg/dL Glucose 137 H (74-99) mg/dL POC Glucose (mg/dL) 299 H (75-99) mg/dL 09/26/20 Range/Units 07:15 Hgb (13.0-17.5) gm/dL Hct (39.0-53.0) % MCV (80.0-100.0) fL MCH (25.0-35.0) pg Sodium (137-145) mmol/L BUN (9-20) mg/dL Creatinine (0.66-1.25) mg/dL Glucose (74-99) mg/dL POC Glucose (mg/dL) 145 H (75-99) mg/dL
--- NOTE | 2020-09-26 11:17 | P.PN ---
Subjective Progress Note Date: 09/26/20 69-year-old male, who presented to the emergency department, on 09/17/2020. The patient apparently came in with complaints of shortness of breath, fever, and recently being tested positive for COVID 19. The patient hasn't been feeling well for a couple weeks now, and about 5 or 6 days ago, was tested here at this hospital and was positive for coronavirus. The patient was not having major issues at that time, and therefore was discharged home. More recently, over the last couple of days, he states that he is becoming more more symptomatic. He had muscle aches, poor appetite, loss of taste, just feeling fatigued, and shortness of breath on exertion. No fever or chills. He wasn't coughing up any phlegm. His cough is mostly nonproductive. He denied any chest pain or chest discomfort. There is no nausea, vomiting, diarrhea, or abdominal pain. A chest x-ray was done and showed bilateral infiltrates, and, his white count was 4.5, hemoglobin 13, hematocrit 41.5, and platelet count 312,000. D-dimer was 32.24, PaO2 was 64, with a PaCO2 of 28 and a pH is 7.49. Sodium was 135, potassium 4.3, chlorides 100, CO2 23, anion gap 12, BUN 56, and creatinine 1.77. Lactic acid was 2.1, LDH was 2084, and C-reactive protein was 66.4. Pro-calcitonin was 0.74. The patient is a lifelong nonsmoker, and his only major medical problem was that of diabetes. He is status post right BKA. Progress note dated 09/19/2020. This is a 69-year-old male that we saw in consultation yesterday. He presented to the emergency department on September 17, complaining of shortness of breath, fever, and recently been tested positive for COVID 19. Currently, the patient's on O2 at about 7-8 L/m high flow. He is feeling a bit better today. To look at the patient, he appears in no distress. He's not having any conversational dyspnea, audible wheezing, use of accessory muscles. He looks very comfortable. I told him we could not discharge him from the hospital till as oxygen requirements are down below 5 L/m. His only other medical problem is that of diabetes. He is a lifelong nonsmoker. White count is 5.1, hemoglobin 11.9, hematocrit 37.5, platelet count 181,000, sodium 137, potassium 3.7, chloride 107, CO2 24, anion gap 6, BUN 60, and creatinine 1.60. Patient is seen today 09/20/2020 in follow-up on the selective care unit. He is currently sitting up in a chair at the bedside. Awake and alert in no acute distress. Breathing better today compared to yesterday. Still requiring 15 L high flow nasal cannula to maintain O2 saturation in the 90s. He's been afebrile. He has received 1 unit of convalescent plasma. Blood cultures reveal no growth. White count 4.4. Hemoglobin 11.8. Platelets 149. Lymphocytes 0.3. Sodium 139. Potassium 3.8. Creatinine 1.41. He remains on dexamethasone, Lovenox, vitamin supplements. The patient is seen today 09/21/2020 in follow-up on the selective care unit. Currently resting fairly comfortably in bed. Last evening he started having inc reasing shortness of breath. He is now on 15 L high phone nasal cannula in addition to a nonrebreather mask to maintain O2 saturation in the low 90s. He is afebrile. Hemodynamically stable. Chest x-ray reveals stable patchy bilateral infiltrates. Doppler of the left lower extremity was negative for DVT. Echocardiogram reveals severely impaired left ventricular systolic function with ejection fraction 25-30%. No evidence of thrombus. Blood culture reveals no growth. White count 6.8. Hemoglobin 12.6. D-dimer 6.29. Sodium 139. Potassium 3.8. Creatinine 1.28. LDH 635. C-reactive protein 19.9. He remains on Lovenox, dexamethasone, vitamin supplements. The patient is seen today 09/22/2020 in follow-up on the selective care unit. He is currently sitting up in bed. Awake and alert in no acute distress. He is still requiring 15 L high flow nasal cannula to maintain O2 saturation at 90%. 0.9 normal saline at KVO. He did receive tocilizumab and convalescent plasma. Remains on Lovenox, Decadron, vitamin supplements. The patient is seen today 09/23/2020 in follow-up on the selective care unit. Presently he is sitting up in the bed awake and alert in no acute distress. Earlier this morning while the patient was having a bowel movement he developed a bradycardic episode of syncope and CODE BLUE was called but the patient had return of spontaneous circulation. He denies any chest discomfort and dizziness or lightheadedness. He denies any worsening shortness of breath, cough or congestion. His x-ray continues to show patchy mid and lower lung field infiltrates compatible with resolving atypical pneumonia. Platelike atelectasis in the right lung base. Still requiring 15 L high flow nasal cannula in addition to a nonrebreather mask to maintain O2 saturations in the 90s. He's been afebrile. Hemodynamically stable. White count 10.8. Hemoglobin 13.4. D- dimer 3.50. Sodium 137. Potassium 3.6. Creatinine 1.75. LDH 1462. C- reactive protein 16.8. Markers are trending down. He has received tocilizumab and convalescent plasma. He remains on Lovenox, dexamethasone, vitamin supplements. The patient is seen today 09/24/2020 in follow-up on the selective care unit. He is currently sitting up in bed. Awake and alert in no acute distress. No further episodes of syncope or vasovagal episodes. He is still requiring 15 L high flow nasal cannula to maintain O2 saturations in the 90s. He is not requiring a nonrebreather mask this morning. He did receive convalescent plasma. He received tocilizumab. Continued on Lovenox, Decadron, vitamin vivar pplements. White count 10.4. Hemoglobin 12.5. D-dimer 1.94. Sodium 135. Potassium 4.1. Creatinine 1.92. LDH 1089. C-reactive protein 10.8. 09/25/2020 the patient is being seen for a follow-up. The patient was being treated for acute hypoxemic respiratory failure secondary to CoVID 19 pneumonia. Outside the window for Remdesivir. Did receive tocilizumab, convalescent plasma. The patient also has CHF with impaired LV function with an ejection fraction of 25-30%. Patient is diabetic and has previous amputation of the right lower extremity below the knee. Patient is currently on 10 L nasal cannula. The patient is afebrile. The patient is hemodynamically stable. The patient is also on Decadron 6 mg daily basis. The patient on Levemir insulin 15 it's at bedtime in addition to 4 units of NovoLog with meals and a sliding scale coverage. No new complaints otherwise for now. The most recent LDH from yesterday was 1089 and the CRP was 10.8. Creatinine is at 1.9 from yesterday as the patient has chronic kidney disease. The patient has been weaned down to 10 L of oxygen by nasal cannula and his pulse ox is still 09/26/2020 I'm seeing the patient for a follow-up. The patient is being treated for acute hypoxic respiratory failure for Covid 19 related to pneumonia. Yes terday he was on 10 L and currently is down to 4 L of oxygen by nasal cannula and the patient's pulse ox is around 94%. The patient also has CHF and the patient has an ejection fraction of 25-30%. The patient has diabetes and previous amputation of the right lower extremity above the knee. The patient is on Lasix orally and the patient is receiving Lasix 40 mg once a day. The patient is on Decadron 6 mg by mouth daily. The patient is on Levemir insulin in addition to NovoLog insulin for blood sugar control. Chest x-ray is showing stable bilateral pulmonary infiltrates, I do not see any major interval change compared to the earlier chest films. In terms of her blood work, the patient h as a creatinine of 1.6 which is also improved compared to yesterday. Electrolytes are all within normal limits. Inflammatory markers including CRP is less than 5. Objective - Vital Signs Vital signs: Vital Signs Temp 98.0 F 09/26/20 08:00 Pulse 84 09/26/20 08:00 Resp 20 09/26/20 08:00 BP 138/72 09/26/20 08:00 Pulse Ox 94 L 09/26/20 08:00 Intake & Output 09/25/20 09/26/20 09/26/20 18:59 06:59 18:59 Intake Total 660 240 Output Total 600 Balance 660 -600 240 Weight 85 kg Intake: Oral 660 240 Output: Urine 600 Other: Voiding Method External Catheter - Exam GENERAL EXAM: Alert, pleasant 69-year-old gentleman, and 4 L high flow nasal cannula, comfortable in no apparent distress. HEAD: Normocephalic. EYES: Normal reaction of pupils, equal size. NOSE: Clear with pink turbinates. THROAT: No erythema or exudates. NECK: No masses, no JVD. CHEST: No chest wall deformity. LUNGS: Equal air entry with crackles in the bilateral posterior bases. CVS: S1 and S2 normal with an audible murmur, regular rhythm. ABDOMEN: No hepatosplenomegaly, normal bowel sounds, no guarding or rigidity. SPINE: No scoliosis or deformity SKIN: No rashes CENTRAL NERVOUS SYSTEM: No focal deficits, tone is normal in all 4 extremities. EXTREMITIES: There is no peripheral edema. No clubbing, no cyanosis. Peripheral pulses are intact. - Labs CBC & Chem 7: 09/26/20 07:01 09/26/20 07:01 Labs: Abnormal Lab Results - Last 24 Hours (Table) 09/25/20 09/25/20 09/25/20 Range/Units 12:17 16:57 20:18 Hgb (13.0-17.5) gm/dL Hct (39.0-53.0) % MCV (80.0-100.0) fL MCH (25.0-35.0) pg Sodium (137-145) mmol/L BUN (9-20) mg/dL Creatinine (0.66-1.25) mg/dL Glucose (74-99) mg/dL POC Glucose (mg/dL) 161 H 226 H 403 H (75-99) mg/dL 09/25/20 09/26/20 09/26/20 Range/Units 22:46 07:01 07:01 Hgb 11.7 L (13.0-17.5) gm/dL Hct 36.3 L (39.0-53.0) % MCV 62.8 L (80.0-100.0) fL MCH 20.2 L (25.0-35.0) pg Sodium 133 L (137-145) mmol/L BUN 81 H (9-20) mg/dL Creatinine 1.61 H (0.66-1.25) mg/dL Glucose 137 H (74-99) mg/dL POC Glucose (mg/dL) 299 H (75-99) mg/dL 09/26/20 Range/Units 07:15 Hgb (13.0-17.5) gm/dL Hct (39.0-53.0) % MCV (80.0-100.0) fL MCH (25.0-35.0) pg Sodium (137-145) mmol/L BUN (9-20) mg/dL Creatinine (0.66-1.25) mg/dL Glucose (74-99) mg/dL POC Glucose (mg/dL) 145 H (75-99) mg/dL Assessment and Plan Plan: 1 Acute hypoxemic respiratory failure secondary to CoVID 19 pneumonia. Outside the window for Remdesivir. Did receive tocilizumab, convalescent plasma. The patient is currently on 4 L by nasal cannula. Inflammatory markers remain elevated specially the LDH. The last chest x-ray from 09/23/2020 showed patchy mid and lower lung field infiltrate compatible with pneumonia although there was some improvement. Atelectatic changes was also seen in the right lung base. The patient remains on Decadron. Clinically the patient is improving. The patient has been weaned down to 4 L of oxygen by nasal cannula. He is sitting up on a chair and he is hemodynamically stable. 2 Severe left ventricular systolic function with ejection fraction 25-30% 3 Diabetes mellitus, currently on Levemir insulin 4 Lifelong nonsmoker 5 History of right below the knee amputation 6 Syncope with bradycardia, suspect vasovagal during bowel movement 7 chronic kidney disease in the patient's creatinine is stable Plan: Improving from the pulmonary standpoint currently on 4 L of oxygen by nasal cannula and should be weaned down further as long as the saturation remains above 90% Titrate down the FiO2 as tolerated, current pulse ox is around 1994% Current treatment plan Repeat chest x-ray in the inflammatory markers in a.m., CRP has normalized. D-dimer is currently declined and the patient can be switched to Lovenox 40 mg once a day Provide the patient incentive spirometer We will continue to follow
[2020-09-26 12:08] LABS: Glucose,Whole Blood 168 mg/dL (75-99)
[2020-09-26 16:48] LABS: Glucose,Whole Blood 273 mg/dL (75-99)
[2020-09-26 20:22] LABS: Glucose,Whole Blood 377 mg/dL (75-99)
[2020-09-26] MEDS: INSULIN DETEMIR (LEVEMIR) 100 UNIT/ML SYR SQ SCH (20:51)
[2020-09-27] MEDS: polyethylene glycoL 3350 17 GM POWD.PACK PO SCH ×2 (08:10→08:45)
[2020-09-27] MEDS: ENOXAPARIN 40 MG/0.4 ML SYRINGE SQ SCH (08:10)
[2020-09-27] MEDS: INSULIN ASPART (NovoLOG) 100 UNIT/ML VIAL SQ SCH ×10 (08:11→20:32)
[2020-09-27] MEDS: ASCORBIC ACID 500 MG TAB PO SCH (08:11)
[2020-09-27] MEDS: METOPROLOL SUCCINATE (ER) 25 MG TAB.ER.24H PO SCH (08:12)
[2020-09-27] MEDS: CHOLECALCIFEROL 25 MCG (1000 IU) TABLET PO SCH (08:12)
[2020-09-27] MEDS: ZINC SULFATE 220 MG CAP PO SCH (08:12)
[2020-09-27] MEDS: FUROSEMIDE 40 MG TAB PO SCH (08:12)
[2020-09-27 08:19] LABS: Glucose,Whole Blood 162 mg/dL (75-99)
[2020-09-27 10:14] LABS: HCT 39.4 % (39.0-53.0); HGB 12.5 gm/dL (13.0-17.5); Hypochromasia Slight; MCH 20.3 pg (25.0-35.0); MCHC 31.8 g/dL (31.0-37.0); Mean Platelet Volume 6.7; Microcytosis Marked; Platelet Count 158 k/uL (150-450); RBC 6.15 m/uL (4.30-5.90); RDW 14.1 % (11.5-15.5); WBC 7.3 k/uL (3.8-10.6)
[2020-09-27 10:31] LABS: Calcium 9.3 mg/dL (8.4-10.2); Magnesium 1.8 mg/dL (1.6-2.3); Potassium 4.6 mmol/L (3.5-5.1)
--- NOTE | 2020-09-27 10:40 | P.PN ---
Subjective Progress Note Date: 09/27/20 69-year-old male, who presented to the emergency department, on 09/17/2020. The patient apparently came in with complaints of shortness of breath, fever, and recently being tested positive for COVID 19. The patient hasn't been feeling well for a couple weeks now, and about 5 or 6 days ago, was tested here at this hospital and was positive for coronavirus. The patient was not having major issues at that time, and therefore was discharged home. More recently, over the last couple of days, he states that he is becoming more more symptomatic. He had muscle aches, poor appetite, loss of taste, just feeling fatigued, and shortness of breath on exertion. No fever or chills. He wasn't coughing up any phlegm. His cough is mostly nonproductive. He denied any chest pain or chest discomfort. There is no nausea, vomiting, diarrhea, or abdominal pain. A chest x-ray was done and showed bilateral infiltrates, and, his white count was 4.5, hemoglobin 13, hematocrit 41.5, and platelet count 312,000. D-dimer was 32.24, PaO2 was 64, with a PaCO2 of 28 and a pH is 7.49. Sodium was 135, potassium 4.3, chlorides 100, CO2 23, anion gap 12, BUN 56, and creatinine 1.77. Lactic acid was 2.1, LDH was 2084, and C-reactive protein was 66.4. Pro-calcitonin was 0.74. The patient is a lifelong nonsmoker, and his only major medical problem was that of diabetes. He is status post right BKA. Progress note dated 09/19/2020. This is a 69-year-old male that we saw in consultation yesterday. He presented to the emergency department on September 17, complaining of shortness of breath, fever, and recently been tested positive for COVID 19. Currently, the patient's on O2 at about 7-8 L/m high flow. He is feeling a bit better today. To look at the patient, he appears in no distress. He's not having any conversational dyspnea, audible wheezing, use of accessory muscles. He looks very comfortable. I told him we could not discharge him from the hospital till as oxygen requirements are down below 5 L/m. His only other medical problem is that of diabetes. He is a lifelong nonsmoker. White count is 5.1, hemoglobin 11.9, hematocrit 37.5, platelet count 181,000, sodium 137, potassium 3.7, chloride 107, CO2 24, anion gap 6, BUN 60, and creatinine 1.60. Patient is seen today 09/20/2020 in follow-up on the selective care unit. He is currently sitting up in a chair at the bedside. Awake and alert in no acute distress. Breathing better today compared to yesterday. Still requiring 15 L high flow nasal cannula to maintain O2 saturation in the 90s. He's been afebrile. He has received 1 unit of convalescent plasma. Blood cultures reveal no growth. White count 4.4. Hemoglobin 11.8. Platelets 149. Lymphocytes 0.3. Sodium 139. Potassium 3.8. Creatinine 1.41. He remains on dexamethasone, Lovenox, vitamin supplements. The patient is seen today 09/21/2020 in follow-up on the selective care unit. Currently resting fairly comfortably in bed. Last evening he started having inc reasing shortness of breath. He is now on 15 L high phone nasal cannula in addition to a nonrebreather mask to maintain O2 saturation in the low 90s. He is afebrile. Hemodynamically stable. Chest x-ray reveals stable patchy bilateral infiltrates. Doppler of the left lower extremity was negative for DVT. Echocardiogram reveals severely impaired left ventricular systolic function with ejection fraction 25-30%. No evidence of thrombus. Blood culture reveals no growth. White count 6.8. Hemoglobin 12.6. D-dimer 6.29. Sodium 139. Potassium 3.8. Creatinine 1.28. LDH 635. C-reactive protein 19.9. He remains on Lovenox, dexamethasone, vitamin supplements. The patient is seen today 09/22/2020 in follow-up on the selective care unit. He is currently sitting up in bed. Awake and alert in no acute distress. He is still requiring 15 L high flow nasal cannula to maintain O2 saturation at 90%. 0.9 normal saline at KVO. He did receive tocilizumab and convalescent plasma. Remains on Lovenox, Decadron, vitamin supplements. The patient is seen today 09/23/2020 in follow-up on the selective care unit. Presently he is sitting up in the bed awake and alert in no acute distress. Earlier this morning while the patient was having a bowel movement he developed a bradycardic episode of syncope and CODE BLUE was called but the patient had return of spontaneous circulation. He denies any chest discomfort and dizziness or lightheadedness. He denies any worsening shortness of breath, cough or congestion. His x-ray continues to show patchy mid and lower lung field infiltrates compatible with resolving atypical pneumonia. Platelike atelectasis in the right lung base. Still requiring 15 L high flow nasal cannula in addition to a nonrebreather mask to maintain O2 saturations in the 90s. He's been afebrile. Hemodynamically stable. White count 10.8. Hemoglobin 13.4. D- dimer 3.50. Sodium 137. Potassium 3.6. Creatinine 1.75. LDH 1462. C- reactive protein 16.8. Markers are trending down. He has received tocilizumab and convalescent plasma. He remains on Lovenox, dexamethasone, vitamin supplements. The patient is seen today 09/24/2020 in follow-up on the selective care unit. He is currently sitting up in bed. Awake and alert in no acute distress. No further episodes of syncope or vasovagal episodes. He is still requiring 15 L high flow nasal cannula to maintain O2 saturations in the 90s. He is not requiring a nonrebreather mask this morning. He did receive convalescent plasma. He received tocilizumab. Continued on Lovenox, Decadron, vitamin vivar pplements. White count 10.4. Hemoglobin 12.5. D-dimer 1.94. Sodium 135. Potassium 4.1. Creatinine 1.92. LDH 1089. C-reactive protein 10.8. 09/25/2020 the patient is being seen for a follow-up. The patient was being treated for acute hypoxemic respiratory failure secondary to CoVID 19 pneumonia. Outside the window for Remdesivir. Did receive tocilizumab, convalescent plasma. The patient also has CHF with impaired LV function with an ejection fraction of 25-30%. Patient is diabetic and has previous amputation of the right lower extremity below the knee. Patient is currently on 10 L nasal cannula. The patient is afebrile. The patient is hemodynamically stable. The patient is also on Decadron 6 mg daily basis. The patient on Levemir insulin 15 it's at bedtime in addition to 4 units of NovoLog with meals and a sliding scale coverage. No new complaints otherwise for now. The most recent LDH from yesterday was 1089 and the CRP was 10.8. Creatinine is at 1.9 from yesterday as the patient has chronic kidney disease. The patient has been weaned down to 10 L of oxygen by nasal cannula and his pulse ox is still 09/26/2020 I'm seeing the patient for a follow-up. The patient is being treated for acute hypoxic respiratory failure for Covid 19 related to pneumonia. Yes terday he was on 10 L and currently is down to 4 L of oxygen by nasal cannula and the patient's pulse ox is around 94%. The patient also has CHF and the patient has an ejection fraction of 25-30%. The patient has diabetes and previous amputation of the right lower extremity above the knee. The patient is on Lasix orally and the patient is receiving Lasix 40 mg once a day. The patient is on Decadron 6 mg by mouth daily. The patient is on Levemir insulin in addition to NovoLog insulin for blood sugar control. Chest x-ray is showing stable bilateral pulmonary infiltrates, I do not see any major interval change compared to the earlier chest films. In terms of her blood work, the patient h as a creatinine of 1.6 which is also improved compared to yesterday. Electrolytes are all within normal limits. Inflammatory markers including CRP is less than 5. Any for 2020, the patient is doing well on oxygen at 5 L to maintain a saturation above 90%. He has acute hypoxic respiratory failure due to Covid 19 related pneumonia. He also has CHF, EF around 25-30%. In terms of his treatment, he is on Lovenox 40 mg subcu daily basis. He is also on Decadron 6 mg by mouth daily. He is on Levemir insulin 15 units daily at bedtime. No new complaints. Inflammatory markers have been improving and his CRP level is already normalizes less than 5. Note that his creatinine stable at 1.6 with a mean of 85 and his sodium is at 133. White cell count is at 7.3 and hemoglobin is at all 0.5. The chest exit from yesterday was not showing any major interval change. The patient is currently on oral Lasix. Objective - Vital Signs Vital signs: Vital Signs Temp 98.6 F 09/27/20 08:00 Pulse 74 09/27/20 08:00 Resp 20 09/27/20 08:00 BP 99/60 09/27/20 08:00 Pulse Ox 91 L 09/27/20 08:00 Intake & Output 09/26/20 09/27/20 09/27/20 18:59 06:59 18:59 Intake Total 1020 360 Output Total 510 200 Balance 1020 -510 160 Weight 80.5 kg Intake: Oral 1020 360 Output: Urine 510 200 Other: Voiding Method External Catheter # Voids 1 # Bowel Movements 1 - Exam GENERAL EXAM: Alert, pleasant 69-year-old gentleman, and 4 L high flow nasal cannula, comfortable in no apparent distress. HEAD: Normocephalic. EYES: Normal reaction of pupils, equal size. NOSE: Clear with pink turbinates. THROAT: No erythema or exudates. NECK: No masses, no JVD. CHEST: No chest wall deformity. LUNGS: Equal air entry with crackles in the bilateral posterior bases. CVS: S1 and S2 normal with an audible murmur, regular rhythm. ABDOMEN: No hepatosplenomegaly, normal bowel sounds, no guarding or rigidity. SPINE: No scoliosis or deformity SKIN: No rashes CENTRAL NERVOUS SYSTEM: No focal deficits, tone is normal in all 4 extremities. EXTREMITIES: There is no peripheral edema. No clubbing, no cyanosis. Peripheral pulses are intact. - Labs CBC & Chem 7: 09/27/20 09:44 09/27/20 09:44 Labs: Abnormal Lab Results - Last 24 Hours (Table) 09/26/20 09/26/20 09/26/20 Range/Units 12:05 16:44 20:21 RBC (4.30-5.90) m/uL Hgb (13.0-17.5) gm/dL MCV (80.0-100.0) fL MCH (25.0-35.0) pg Sodium (137-145) mmol/L BUN (9-20) mg/dL Creatinine (0.66-1.25) mg/dL Glucose (74-99) mg/dL POC Glucose (mg/dL) 168 H 273 H 377 H (75-99) mg/dL 09/27/20 09/27/20 09/27/20 Range/Units 08:18 09:44 09:44 RBC 6.15 H (4.30-5.90) m/uL Hgb 12.5 L (13.0-17.5) gm/dL MCV 64.0 L (80.0-100.0) fL MCH 20.3 L (25.0-35.0) pg Sodium 133 L (137-145) mmol/L BUN 85 H (9-20) mg/dL Creatinine 1.61 H (0.66-1.25) mg/dL Glucose 193 H (74-99) mg/dL POC Glucose (mg/dL) 162 H (75-99) mg/dL Assessment and Plan Plan: 1 Acute hypoxemic respiratory failure secondary to CoVID 19 pneumonia. Outside the window for Remdesivir. Did receive tocilizumab, convalescent plasma. The patient is currently on 4 L by nasal cannula. Inflammatory markers remain elevated specially the LDH. If levels are pending. Chest x-ray from yesterday is showing stable fashion. The pulmonary infiltrates. The last chest x-ray from 09/23/2020 showed patchy mid and lower lung field infiltrate compatible with pneumonia although there was some improvement. Atelectatic changes was also seen in the right lung base. The patient remains on Decadron. 2 Severe left ventricular systolic function with ejection fraction 25-30% 3 Diabetes mellitus, currently on Levemir insulin 4 Lifelong nonsmoker 5 History of right below the knee amputation 6 Syncope with bradycardia, suspect vasovagal during bowel movement 7 chronic kidney disease in the patient's creatinine is stable Plan: Improving from the pulmonary standpoint currently on 4 L of oxygen by nasal cannula and should be weaned down further as long as the saturation remains above 90% Titrate down the FiO2 as tolerated, current pulse ox is above 90% Decadron 6 mg by mouth daily and I'm thinking of discharging this patient home tomorrow on oxygen and a prednisone burst taper. Lovenox 40 mg once a day incentive spirometer We will continue to follow
--- NOTE | 2020-09-27 11:23 | P.PN ---
Subjective Progress Note Date: 09/27/20 Pt doing well today; nursing tells me patient had a desaturation episode with ambulation in which he fell to mid-70% despite 4L O2. Objective - Vital Signs Vital signs: Vital Signs Temp 98.6 F 09/27/20 08:00 Pulse 74 09/27/20 08:00 Resp 20 09/27/20 08:00 BP 99/60 09/27/20 08:00 Pulse Ox 91 L 09/27/20 08:00 Intake & Output 09/26/20 09/27/20 09/27/20 18:59 06:59 18:59 Intake Total 1020 360 Output Total 510 200 Balance 1020 -510 160 Weight 80.5 kg Intake: Oral 1020 360 Output: Urine 510 200 Other: Voiding Method External Catheter # Voids 1 # Bowel Movements 1 - Exam Gen: awake, alert HEENT: normocephalic, atraumatic, good hearing acuity, moist mucous membranes Resp: good air exchange, breathing comfortably with no accessory muscle use, CVS: good distal perfusion x 4,, regular rate and rhythm without murmurs GI: soft, NTTP, ND, normal breath sounds : no SPT, no CVAT, triana catheter not present MSK: no pitting edema, no clubbing Neuro: non-focal, moving all extremities Psych: cooperative, euthymic mood - Labs CBC & Chem 7: 09/27/20 09:44 09/27/20 09:44 Labs: Abnormal Lab Results - Last 24 Hours (Table) 09/26/20 09/26/20 09/26/20 Range/Units 12:05 16:44 20:21 RBC (4.30-5.90) m/uL Hgb (13.0-17.5) gm/dL MCV (80.0-100.0) fL MCH (25.0-35.0) pg Sodium (137-145) mmol/L BUN (9-20) mg/dL Creatinine (0.66-1.25) mg/dL Glucose (74-99) mg/dL POC Glucose (mg/dL) 168 H 273 H 377 H (75-99) mg/dL 09/27/20 09/27/20 09/27/20 Range/Units 08:18 09:44 09:44 RBC 6.15 H (4.30-5.90) m/uL Hgb 12.5 L (13.0-17.5) gm/dL MCV 64.0 L (80.0-100.0) fL MCH 20.3 L (25.0-35.0) pg Sodium 133 L (137-145) mmol/L BUN 85 H (9-20) mg/dL Creatinine 1.61 H (0.66-1.25) mg/dL Glucose 193 H (74-99) mg/dL POC Glucose (mg/dL) 162 H (75-99) mg/dL Assessment and Plan Assessment: acute hypoxiic respiratory failure COIVD pneumonitis Acute on Chronic Systolic Heart Failure, EF 25-30% AARON DM insulin dependant , hyperglycemia plan supplemental oxygen as needed dexamethasone 6 mg daily s/p convalescent plasma complete remdes will require home oxygen on discharge pulmonary consult s/p tocilizumab pain and fever control with tylenol basal insulin and insulin sliding scale lasix PO daily echo with decreased EF to 25-30% monitor renal function lovenox ppx elevated inflammatory markers elevated trops , no chest pain, most likely 2/2 COVID EKG no acute ST changes CODE STATUS:full code DVT prophylaxis: on lovenox Discussed with: Patient, ER, RN Anticipated length of stay > than [address]: home
[2020-09-27 11:53] LABS: Glucose,Whole Blood 226 mg/dL (75-99)
[2020-09-27] MEDS: dexAMETHasone 2 MG TAB PO SCH (12:31)
[2020-09-27] MEDS: ALBUTEROL HFA INHALER INHALATION PRN ×3 (12:40→21:04)
[2020-09-27 17:09] LABS: Glucose,Whole Blood 188 mg/dL (75-99)
[2020-09-27 20:01] LABS: Glucose,Whole Blood 354 mg/dL (75-99)
[2020-09-27] MEDS: INSULIN DETEMIR (LEVEMIR) 100 UNIT/ML SYR SQ SCH (20:32)
[2020-09-28 07:25] LABS: Glucose,Whole Blood 136 mg/dL (75-99)
--- NOTE | 2020-09-28 09:06 | XR ---
EXAMINATION TYPE: XR chest 1V portable DATE OF EXAM: 09/28/2020 COMPARISON: NONE HISTORY: Shortness of breath TECHNIQUE: Single frontal view of the chest is obtained. FINDINGS: Bilateral patchy infiltrates are noted. However, there appears to be evidence of pneumoper icardium and pneumomediastinum. Report immediately called the patient's nurse 09/28/2020 at 9:02 AM. U nderlying COPD noted. IMPRESSION: 1. Interval development of pneumopericardium and mediastinum. 2. Stable bilateral patchy infiltrate.
[2020-09-28] MEDS: ASCORBIC ACID 500 MG TAB PO SCH (10:14)
[2020-09-28] MEDS: CHOLECALCIFEROL 25 MCG (1000 IU) TABLET PO SCH (10:14)
[2020-09-28] MEDS: FUROSEMIDE 40 MG TAB PO SCH (10:15)
[2020-09-28] MEDS: METOPROLOL SUCCINATE (ER) 25 MG TAB.ER.24H PO SCH (10:15)
[2020-09-28] MEDS: ZINC SULFATE 220 MG CAP PO SCH (10:15)
[2020-09-28] MEDS: dexAMETHasone 2 MG TAB PO SCH (10:15)
[2020-09-28] MEDS: ENOXAPARIN 40 MG/0.4 ML SYRINGE SQ SCH (10:16)
[2020-09-28] MEDS: INSULIN ASPART (NovoLOG) 100 UNIT/ML VIAL SQ SCH ×7 (10:16→20:32)
[2020-09-28 10:30] LABS: C Reactive Protein <5.0 mg/L (<10.0); LDH 674 U/L (313-618)
[2020-09-28] MEDS: ALBUTEROL HFA INHALER INHALATION PRN (10:34)
[2020-09-28] MEDS: polyethylene glycoL 3350 17 GM POWD.PACK PO SCH (10:37)
--- NOTE | 2020-09-28 11:42 | P.PN ---
Subjective Progress Note Date: 09/28/20 69-year-old male, who presented to the emergency department, on 09/17/2020. The patient apparently came in with complaints of shortness of breath, fever, and recently being tested positive for COVID 19. The patient hasn't been feeling well for a couple weeks now, and about 5 or 6 days ago, was tested here at this hospital and was positive for coronavirus. The patient was not having major issues at that time, and therefore was discharged home. More recently, over the last couple of days, he states that he is becoming more more symptomatic. He had muscle aches, poor appetite, loss of taste, just feeling fatigued, and shortness of breath on exertion. No fever or chills. He wasn't coughing up any phlegm. His cough is mostly nonproductive. He denied any chest pain or chest discomfort. There is no nausea, vomiting, diarrhea, or abdominal pain. A chest x-ray was done and showed bilateral infiltrates, and, his white count was 4.5, hemoglobin 13, hematocrit 41.5, and platelet count 312,000. D-dimer was 32.24, PaO2 was 64, with a PaCO2 of 28 and a pH is 7.49. Sodium was 135, potassium 4.3, chlorides 100, CO2 23, anion gap 12, BUN 56, and creatinine 1.77. Lactic acid was 2.1, LDH was 2084, and C-reactive protein was 66.4. Pro-calcitonin was 0.74. The patient is a lifelong nonsmoker, and his only major medical problem was that of diabetes. He is status post right BKA. Progress note dated 09/19/2020. This is a 69-year-old male that we saw in consultation yesterday. He presented to the emergency department on September 17, complaining of shortness of breath, fever, and recently been tested positive for COVID 19. Currently, the patient's on O2 at about 7-8 L/m high flow. He is feeling a bit better today. To look at the patient, he appears in no distress. He's not having any conversational dyspnea, audible wheezing, use of accessory muscles. He looks very comfortable. I told him we could not discharge him from the hospital till as oxygen requirements are down below 5 L/m. His only other medical problem is that of diabetes. He is a lifelong nonsmoker. White count is 5.1, hemoglobin 11.9, hematocrit 37.5, platelet count 181,000, sodium 137, potassium 3.7, chloride 107, CO2 24, anion gap 6, BUN 60, and creatinine 1.60. Patient is seen today 09/20/2020 in follow-up on the selective care unit. He is currently sitting up in a chair at the bedside. Awake and alert in no acute distress. Breathing better today compared to yesterday. Still requiring 15 L high flow nasal cannula to maintain O2 saturation in the 90s. He's been afebrile. He has received 1 unit of convalescent plasma. Blood cultures reveal no growth. White count 4.4. Hemoglobin 11.8. Platelets 149. Lymphocytes 0.3. Sodium 139. Potassium 3.8. Creatinine 1.41. He remains on dexamethasone, Lovenox, vitamin supplements. The patient is seen today 09/21/2020 in follow-up on the selective care unit. Currently resting fairly comfortably in bed. Last evening he started having inc reasing shortness of breath. He is now on 15 L high phone nasal cannula in addition to a nonrebreather mask to maintain O2 saturation in the low 90s. He is afebrile. Hemodynamically stable. Chest x-ray reveals stable patchy bilateral infiltrates. Doppler of the left lower extremity was negative for DVT. Echocardiogram reveals severely impaired left ventricular systolic function with ejection fraction 25-30%. No evidence of thrombus. Blood culture reveals no growth. White count 6.8. Hemoglobin 12.6. D-dimer 6.29. Sodium 139. Potassium 3.8. Creatinine 1.28. LDH 635. C-reactive protein 19.9. He remains on Lovenox, dexamethasone, vitamin supplements. The patient is seen today 09/22/2020 in follow-up on the selective care unit. He is currently sitting up in bed. Awake and alert in no acute distress. He is still requiring 15 L high flow nasal cannula to maintain O2 saturation at 90%. 0.9 normal saline at KVO. He did receive tocilizumab and convalescent plasma. Remains on Lovenox, Decadron, vitamin supplements. The patient is seen today 09/23/2020 in follow-up on the selective care unit. Presently he is sitting up in the bed awake and alert in no acute distress. Earlier this morning while the patient was having a bowel movement he developed a bradycardic episode of syncope and CODE BLUE was called but the patient had return of spontaneous circulation. He denies any chest discomfort and dizziness or lightheadedness. He denies any worsening shortness of breath, cough or congestion. His x-ray continues to show patchy mid and lower lung field infiltrates compatible with resolving atypical pneumonia. Platelike atelectasis in the right lung base. Still requiring 15 L high flow nasal cannula in addition to a nonrebreather mask to maintain O2 saturations in the 90s. He's been afebrile. Hemodynamically stable. White count 10.8. Hemoglobin 13.4. D- dimer 3.50. Sodium 137. Potassium 3.6. Creatinine 1.75. LDH 1462. C- reactive protein 16.8. Markers are trending down. He has received tocilizumab and convalescent plasma. He remains on Lovenox, dexamethasone, vitamin supplements. The patient is seen today 09/24/2020 in follow-up on the selective care unit. He is currently sitting up in bed. Awake and alert in no acute distress. No further episodes of syncope or vasovagal episodes. He is still requiring 15 L high flow nasal cannula to maintain O2 saturations in the 90s. He is not requiring a nonrebreather mask this morning. He did receive convalescent plasma. He received tocilizumab. Continued on Lovenox, Decadron, vitamin vivar pplements. White count 10.4. Hemoglobin 12.5. D-dimer 1.94. Sodium 135. Potassium 4.1. Creatinine 1.92. LDH 1089. C-reactive protein 10.8. 09/25/2020 the patient is being seen for a follow-up. The patient was being treated for acute hypoxemic respiratory failure secondary to CoVID 19 pneumonia. Outside the window for Remdesivir. Did receive tocilizumab, convalescent plasma. The patient also has CHF with impaired LV function with an ejection fraction of 25-30%. Patient is diabetic and has previous amputation of the right lower extremity below the knee. Patient is currently on 10 L nasal cannula. The patient is afebrile. The patient is hemodynamically stable. The patient is also on Decadron 6 mg daily basis. The patient on Levemir insulin 15 it's at bedtime in addition to 4 units of NovoLog with meals and a sliding scale coverage. No new complaints otherwise for now. The most recent LDH from yesterday was 1089 and the CRP was 10.8. Creatinine is at 1.9 from yesterday as the patient has chronic kidney disease. The patient has been weaned down to 10 L of oxygen by nasal cannula and his pulse ox is still 09/26/2020 I'm seeing the patient for a follow-up. The patient is being treated for acute hypoxic respiratory failure for Covid 19 related to pneumonia. Yes terday he was on 10 L and currently is down to 4 L of oxygen by nasal cannula and the patient's pulse ox is around 94%. The patient also has CHF and the patient has an ejection fraction of 25-30%. The patient has diabetes and previous amputation of the right lower extremity above the knee. The patient is on Lasix orally and the patient is receiving Lasix 40 mg once a day. The patient is on Decadron 6 mg by mouth daily. The patient is on Levemir insulin in addition to NovoLog insulin for blood sugar control. Chest x-ray is showing stable bilateral pulmonary infiltrates, I do not see any major interval change compared to the earlier chest films. In terms of her blood work, the patient h as a creatinine of 1.6 which is also improved compared to yesterday. Electrolytes are all within normal limits. Inflammatory markers including CRP is less than 5. Any for 2020, the patient is doing well on oxygen at 5 L to maintain a saturation above 90%. He has acute hypoxic respiratory failure due to Covid 19 related pneumonia. He also has CHF, EF around 25-30%. In terms of his treatment, he is on Lovenox 40 mg subcu daily basis. He is also on Decadron 6 mg by mouth daily. He is on Levemir insulin 15 units daily at bedtime. No new complaints. Inflammatory markers have been improving and his CRP level is already normalizes less than 5. Note that his creatinine stable at 1.6 with a mean of 85 and his sodium is at 133. White cell count is at 7.3 and hemoglobin is at all 0.5. The chest exit from yesterday was not showing any major interval change. The patient is currently on oral Lasix. 09/28/2020 the patient is feeling essentially the same as yesterday. He is currently down to 5 L of oxygen by nasal cannula and is off the Ventimask. He has no specific complaints.. He is afebrile. Pulse ox is 91% 40s about 2 by nasal cannula. He is able to speak of. This has been is ambulating. He is on Levemir insulin for blood sugar control. His CRP is already normalized. C linically the patient is doing well. On the chest x-ray there was a mention of normal pericardium and I would suggest repeating the chest x-ray and if abnormal will do a CAT scan of the chest. For now the patient on 5 L of oxygen by nasal cannula. Doing well. No specific complaints. He remains on Decadron. The patient's LDH phase of 674 and a CRP of less than 5 Objective - Vital Signs Vital signs: Vital Signs Temp 98.3 F 09/28/20 04:40 Pulse 78 09/28/20 04:40 Resp 18 09/28/20 04:40 BP 126/74 09/28/20 04:40 Pulse Ox 93 L 09/28/20 04:40 Intake & Output 09/27/20 09/28/20 09/28/20 18:59 06:59 18:59 Intake Total 960 480 Output Total 400 500 Balance 560 -20 Intake: Oral 960 480 Output: Urine 400 500 Other: Voiding Method External Catheter # Voids 1 # Bowel Movements 1 - Exam GENERAL EXAM: Alert, pleasant 69-year-old gentleman, and 4 L high flow nasal cannula, comfortable in no apparent distress. HEAD: Normocephalic. EYES: Normal reaction of pupils, equal size. NOSE: Clear with pink turbinates. THROAT: No erythema or exudates. NECK: No masses, no JVD. CHEST: No chest wall deformity. LUNGS: Equal air entry with crackles in the bilateral posterior bases. CVS: S1 and S2 normal with an audible murmur, regular rhythm. ABDOMEN: No hepatosplenomegaly, normal bowel sounds, no guarding or rigidity. SPINE: No scoliosis or deformity SKIN: No rashes CENTRAL NERVOUS SYSTEM: No focal deficits, tone is normal in all 4 extremities. EXTREMITIES: There is no peripheral edema. No clubbing, no cyanosis. Periph eral pulses are intact. - Labs CBC & Chem 7: 09/27/20 09:44 09/27/20 09:44 Labs: Abnormal Lab Results - Last 24 Hours (Table) 09/27/20 09/27/20 09/27/20 Range/Units 11:39 17:07 20:00 POC Glucose (mg/dL) 226 H 188 H 354 H (75-99) mg/dL Lactate Dehydrogenase (313-618) U/L 09/28/20 09/28/20 Range/Units 07:24 09:14 POC Glucose (mg/dL) 136 H (75-99) mg/dL Lactate Dehydrogenase 674 H (313-618) U/L Assessment and Plan Plan: 1 Acute hypoxemic respiratory failure secondary to CoVID 19 pneumonia. Outside the window for Remdesivir. Did receive tocilizumab, convalescent plasma. The patient is currently on 4 L by nasal cannula. Inflammatory markers are improving. The patient remains on Decadron. The patient remains on 4 L of oxygen by nasal cannula. Questionable abnormal chest x-ray with pneumopericardium 2 Severe left ventricular systolic function with ejection fraction 25-30% 3 Diabetes mellitus, currently on Levemir insulin 4 Lifelong nonsmoker 5 History of right below the knee amputation 6 Syncope with bradycardia, suspect vasovagal during bowel movement 7 chronic kidney disease in the patient's creatinine is stable Plan: Improving from the pulmonary standpoint currently on 4 L of oxygen by nasal cannula and should be weaned down further as long as the saturation remains above 90% Titrate down the FiO2 as tolerated, current pulse ox is above 90% Repeat chest x-ray to follow-up on the pneumopericardium. If abnormal, consider computed tomography scan of the chest Decadron 6 mg by mouth daily and I'm thinking of discharging this patient home tomorrow on oxygen and a prednisone burst taper. Lovenox 40 mg once a day incentive spirometer We will continue to follow
--- NOTE | 2020-09-28 11:42 | P.PN ---
Subjective Progress Note Date: 09/28/20 No new complaints at this time. Pt on 5L NC, still with limited exercise tolerance. PACS imaging system is down, so difficult to review CXR, but per radiology reading, there is new pneumomediastinum/pneumopericardium. Objective - Vital Signs Vital signs: Vital Signs Temp 98.3 F 09/28/20 08:00 Pulse 79 09/28/20 08:00 Resp 18 09/28/20 04:40 BP 129/77 09/28/20 08:00 Pulse Ox 91 L 09/28/20 08:00 Intake & Output 09/27/20 09/28/20 09/28/20 18:59 06:59 18:59 Intake Total 960 480 Output Total 400 500 Balance 560 -20 Intake: Oral 960 480 Output: Urine 400 500 Other: Voiding Method External Catheter # Voids 1 # Bowel Movements 1 - Exam Gen: awake, alert HEENT: normocephalic, atraumatic, good hearing acuity, moist mucous membranes Resp: good air exchange, breathing comfortably with no accessory muscle use, CVS: good distal perfusion x 4,, regular rate and rhythm without murmurs GI: soft, NTTP, ND, normal breath sounds : no SPT, no CVAT, triana catheter not present MSK: no pitting edema, no clubbing Neuro: non-focal, moving all extremities Psych: cooperative, euthymic mood - Labs CBC & Chem 7: 09/27/20 09:44 09/27/20 09:44 Labs: Abnormal Lab Results - Last 24 Hours (Table) 09/27/20 09/27/20 09/27/20 Range/Units 11:39 17:07 20:00 POC Glucose (mg/dL) 226 H 188 H 354 H (75-99) mg/dL Lactate Dehydrogenase (313-618) U/L 09/28/20 09/28/20 Range/Units 07:24 09:14 POC Glucose (mg/dL) 136 H (75-99) mg/dL Lactate Dehydrogenase 674 H (313-618) U/L Assessment and Plan Assessment: Covid pneumonitis resulting in acute hypoxic respiratory failure -Patient decreased O2 needs down to 5 L high flow nasal cannula with SpO2 94%. Will continue to wean as patient tolerates. -Inflammatory markers improved CRP < 5.0 from initial 66.4, LDH 674 from initial 2084 and d-dimer 1.94 from initial 32.24. -Continue Decadron 6 mg daily, today is day 10 of 10. -Continue vitamin C, vitamin D, and zinc. -Continue MDIs as needed. -Patient received convalescent plasma and Toclilizumab. -Pulmonology is following along closely, appreciate further recommendations. -Continue DVT prophylaxis with Lovenox. -PT/OT to evaluate patient's stamina and ability to ambulate to better anticipate the required assistance pt may need upon discharge after prolonged time being immobile with this extended hospital stay. -Ambulatory pulse ox Severely impaired left ventricular systolic function with an ejection fraction of 25-30% -Cardiology following, appreciate further recommendations. -Cardiology transition patient from IV to oral Lasix 40 mg daily -We will continue to monitor Strict I's and O's. -Continuous telemetry monitoring. -Continue metoprolol 25 mg daily. Syncopal episode, likely secondary to vasovagal event -Continuous telemetry monitoring -Fall precautions -Monitor vital signs -Orthostatic vitals Acute kidney injury, improving -Elevation in renal function with BUN of 81, creatinine 1.61, and GFR of 43. -Continue Lasix 40 mg orally once daily. -We will continue to monitor closely with repeat a.m. labs to evaluate renal function along with electrolyte values. Insulin-dependent diabetes mellitus type II with hyperglycemia -Glycemic protocol remains in place, secondary to hyperglycemia we have added NovoLog 4 units 3 times daily with meals in addition to NovoLog sliding scale along with Levemir 15 units nightly. -Heart healthy carb consistent diet. Elevated troponin, d-dimer, and inflammatory markers most likely resulting from Covid 19 virus infection -Patient asymptomatic denying having any chest pain, palpitations or further cardiac complaints. -EKG revealed normal sinus rhythm at 83 bpm with a prolonged QT/QTC of 422/495 ms, no T-wave or ST abnormalities noted. -Continuous telemetry monitoring. -Continue DVT prophylaxis with Lovenox. Thrombocytopenia, resolved. CODE STATUS: Full code DVT prophylaxis: Lovenox Discussed with: Patient and RN, offered again to update patient's family. Patient declined, stating he spoke with his girlfriend yesterday and is keeping her updated. Anticipated discharge date: Possibly tomorrow morning pending PT/OT evaluation and ambulatory pulse oximetry. Anticipated discharge place: Home with home care
[2020-09-28 11:53] LABS: Glucose,Whole Blood 163 mg/dL (75-99)
[2020-09-28 12:49] LABS: Calcium 9.7 mg/dL (8.4-10.2); Potassium 4.9 mmol/L (3.5-5.1)
[2020-09-28 13:27] LABS: Basophils % (A) 1 %; Eosinophils % (A) 0 %; HGB 12.5 gm/dL (13.0-17.5); Hypochromasia Moderate; Lymphocytes # (A) 0.8 k/uL (1.0-4.8); Lymphocytes % (A) 10 %; MCH 19.3 pg (25.0-35.0); MCHC 29.9 g/dL (31.0-37.0); MCV 64.6 fL (80.0-100.0); Mean Platelet Volume 6.7; Microcytosis Marked; Monocytes # (A) 0.6 k/uL (0-1.0); Monocytes % (A) 7 %; Neutrophils # (A) 6.4 k/uL (1.3-7.7); Neutrophils % (A) 80 %; Platelet Count 166 k/uL (150-450); RBC 6.51 m/uL (4.30-5.90); RDW 14.1 % (11.5-15.5); WBC 7.9 k/uL (3.8-10.6)
[2020-09-28 17:10] LABS: Glucose,Whole Blood 228 mg/dL (75-99)
[2020-09-28 19:38] LABS: LD Isoenzymes 1 23 % (19-38); LD Isoenzymes 2 46 % (30-43); LD Isoenzymes 3 17 % (16-26); LD Isoenzymes 4 5 % (3-12); LD Isoenzymes 5 9 % (3-14); Lactacte Dehydrogenase(LD) ISO 293 U/L (120-250)
[2020-09-28 19:39] LABS: LD Isoenzymes 1 23 % (19-38); LD Isoenzymes 2 46 % (30-43); LD Isoenzymes 3 16 % (16-26); LD Isoenzymes 4 5 % (3-12); LD Isoenzymes 5 10 % (3-14); Lactacte Dehydrogenase(LD) ISO 252 U/L (120-250)
[2020-09-28 20:25] LABS: Glucose,Whole Blood 244 mg/dL (75-99)
[2020-09-28] MEDS: INSULIN DETEMIR (LEVEMIR) 100 UNIT/ML SYR SQ SCH (20:33)
[2020-09-29 07:13] LABS: Glucose,Whole Blood 117 mg/dL (75-99)
[2020-09-29] MEDS: polyethylene glycoL 3350 17 GM POWD.PACK PO SCH (09:25)
[2020-09-29] MEDS: ASCORBIC ACID 500 MG TAB PO SCH (09:25)
[2020-09-29] MEDS: ZINC SULFATE 220 MG CAP PO SCH (09:26)
[2020-09-29] MEDS: ENOXAPARIN 40 MG/0.4 ML SYRINGE SQ SCH (09:26)
[2020-09-29] MEDS: METOPROLOL SUCCINATE (ER) 25 MG TAB.ER.24H PO SCH (09:26)
[2020-09-29] MEDS: CHOLECALCIFEROL 25 MCG (1000 IU) TABLET PO SCH (09:26)
[2020-09-29] MEDS: dexAMETHasone 2 MG TAB PO SCH (09:26)
[2020-09-29] MEDS: FUROSEMIDE 40 MG TAB PO SCH (09:26)
[2020-09-29] MEDS: INSULIN ASPART (NovoLOG) 100 UNIT/ML VIAL SQ SCH ×7 (09:26→20:22)
--- NOTE | 2020-09-29 09:43 | XR ---
EXAMINATION TYPE: XR chest 1V portable DATE OF EXAM: 09/28/2020 COMPARISON: Chest x-ray 09/28/2020 at earlier time HISTORY: Covid 19 infection, abnormal chest x-ray TECHNIQUE: Single frontal view of the chest is obtained. FINDINGS: Exam submitted on 09/29/2020 for interpretation. There is not a significant interval change . Pneumomediastinum and likely pneumopericardium changes are present. No evident pneumothorax. Bilate ral basilar airspace disease present. Cardiac mediastinal silhouette is unchanged. IMPRESSION: Stable findings.
[2020-09-29 12:14] LABS: Glucose,Whole Blood 144 mg/dL (75-99)
[2020-09-29] MEDS: ALBUTEROL HFA INHALER INHALATION PRN ×2 (12:26→21:07)
--- NOTE | 2020-09-29 12:49 | P.PN ---
Subjective Progress Note Date: 09/29/20 69-year-old male, who presented to the emergency department, on 09/17/2020. The patient apparently came in with complaints of shortness of breath, fever, and recently being tested positive for COVID 19. The patient hasn't been feeling well for a couple weeks now, and about 5 or 6 days ago, was tested here at this hospital and was positive for coronavirus. The patient was not having major issues at that time, and therefore was discharged home. More recently, over the last couple of days, he states that he is becoming more more symptomatic. He had muscle aches, poor appetite, loss of taste, just feeling fatigued, and shortness of breath on exertion. No fever or chills. He wasn't coughing up any phlegm. His cough is mostly nonproductive. He denied any chest pain or chest discomfort. There is no nausea, vomiting, diarrhea, or abdominal pain. A chest x-ray was done and showed bilateral infiltrates, and, his white count was 4.5, hemoglobin 13, hematocrit 41.5, and platelet count 312,000. D-dimer was 32.24, PaO2 was 64, with a PaCO2 of 28 and a pH is 7.49. Sodium was 135, potassium 4.3, chlorides 100, CO2 23, anion gap 12, BUN 56, and creatinine 1.77. Lactic acid was 2.1, LDH was 2084, and C-reactive protein was 66.4. Pro-calcitonin was 0.74. The patient is a lifelong nonsmoker, and his only major medical problem was that of diabetes. He is status post right BKA. Progress note dated 09/19/2020. This is a 69-year-old male that we saw in consultation yesterday. He presented to the emergency department on September 17, complaining of shortness of breath, fever, and recently been tested positive for COVID 19. Currently, the patient's on O2 at about 7-8 L/m high flow. He is feeling a bit better today. To look at the patient, he appears in no distress. He's not having any conversational dyspnea, audible wheezing, use of accessory muscles. He looks very comfortable. I told him we could not discharge him from the hospital till as oxygen requirements are down below 5 L/m. His only other medical problem is that of diabetes. He is a lifelong nonsmoker. White count is 5.1, hemoglobin 11.9, hematocrit 37.5, platelet count 181,000, sodium 137, potassium 3.7, chloride 107, CO2 24, anion gap 6, BUN 60, and creatinine 1.60. Patient is seen today 09/20/2020 in follow-up on the selective care unit. He is currently sitting up in a chair at the bedside. Awake and alert in no acute distress. Breathing better today compared to yesterday. Still requiring 15 L high flow nasal cannula to maintain O2 saturation in the 90s. He's been afebrile. He has received 1 unit of convalescent plasma. Blood cultures reveal no growth. White count 4.4. Hemoglobin 11.8. Platelets 149. Lymphocytes 0.3. Sodium 139. Potassium 3.8. Creatinine 1.41. He remains on dexamethasone, Lovenox, vitamin supplements. The patient is seen today 09/21/2020 in follow-up on the selective care unit. Currently resting fairly comfortably in bed. Last evening he started having inc reasing shortness of breath. He is now on 15 L high phone nasal cannula in addition to a nonrebreather mask to maintain O2 saturation in the low 90s. He is afebrile. Hemodynamically stable. Chest x-ray reveals stable patchy bilateral infiltrates. Doppler of the left lower extremity was negative for DVT. Echocardiogram reveals severely impaired left ventricular systolic function with ejection fraction 25-30%. No evidence of thrombus. Blood culture reveals no growth. White count 6.8. Hemoglobin 12.6. D-dimer 6.29. Sodium 139. Potassium 3.8. Creatinine 1.28. LDH 635. C-reactive protein 19.9. He remains on Lovenox, dexamethasone, vitamin supplements. The patient is seen today 09/22/2020 in follow-up on the selective care unit. He is currently sitting up in bed. Awake and alert in no acute distress. He is still requiring 15 L high flow nasal cannula to maintain O2 saturation at 90%. 0.9 normal saline at KVO. He did receive tocilizumab and convalescent plasma. Remains on Lovenox, Decadron, vitamin supplements. The patient is seen today 09/23/2020 in follow-up on the selective care unit. Presently he is sitting up in the bed awake and alert in no acute distress. Earlier this morning while the patient was having a bowel movement he developed a bradycardic episode of syncope and CODE BLUE was called but the patient had return of spontaneous circulation. He denies any chest discomfort and dizziness or lightheadedness. He denies any worsening shortness of breath, cough or congestion. His x-ray continues to show patchy mid and lower lung field infiltrates compatible with resolving atypical pneumonia. Platelike atelectasis in the right lung base. Still requiring 15 L high flow nasal cannula in addition to a nonrebreather mask to maintain O2 saturations in the 90s. He's been afebrile. Hemodynamically stable. White count 10.8. Hemoglobin 13.4. D- dimer 3.50. Sodium 137. Potassium 3.6. Creatinine 1.75. LDH 1462. C- reactive protein 16.8. Markers are trending down. He has received tocilizumab and convalescent plasma. He remains on Lovenox, dexamethasone, vitamin supplements. The patient is seen today 09/24/2020 in follow-up on the selective care unit. He is currently sitting up in bed. Awake and alert in no acute distress. No further episodes of syncope or vasovagal episodes. He is still requiring 15 L high flow nasal cannula to maintain O2 saturations in the 90s. He is not requiring a nonrebreather mask this morning. He did receive convalescent plasma. He received tocilizumab. Continued on Lovenox, Decadron, vitamin vivar pplements. White count 10.4. Hemoglobin 12.5. D-dimer 1.94. Sodium 135. Potassium 4.1. Creatinine 1.92. LDH 1089. C-reactive protein 10.8. 09/25/2020 the patient is being seen for a follow-up. The patient was being treated for acute hypoxemic respiratory failure secondary to CoVID 19 pneumonia. Outside the window for Remdesivir. Did receive tocilizumab, convalescent plasma. The patient also has CHF with impaired LV function with an ejection fraction of 25-30%. Patient is diabetic and has previous amputation of the right lower extremity below the knee. Patient is currently on 10 L nasal cannula. The patient is afebrile. The patient is hemodynamically stable. The patient is also on Decadron 6 mg daily basis. The patient on Levemir insulin 15 it's at bedtime in addition to 4 units of NovoLog with meals and a sliding scale coverage. No new complaints otherwise for now. The most recent LDH from yesterday was 1089 and the CRP was 10.8. Creatinine is at 1.9 from yesterday as the patient has chronic kidney disease. The patient has been weaned down to 10 L of oxygen by nasal cannula and his pulse ox is still 09/26/2020 I'm seeing the patient for a follow-up. The patient is being treated for acute hypoxic respiratory failure for Covid 19 related to pneumonia. Yes terday he was on 10 L and currently is down to 4 L of oxygen by nasal cannula and the patient's pulse ox is around 94%. The patient also has CHF and the patient has an ejection fraction of 25-30%. The patient has diabetes and previous amputation of the right lower extremity above the knee. The patient is on Lasix orally and the patient is receiving Lasix 40 mg once a day. The patient is on Decadron 6 mg by mouth daily. The patient is on Levemir insulin in addition to NovoLog insulin for blood sugar control. Chest x-ray is showing stable bilateral pulmonary infiltrates, I do not see any major interval change compared to the earlier chest films. In terms of her blood work, the patient h as a creatinine of 1.6 which is also improved compared to yesterday. Electrolytes are all within normal limits. Inflammatory markers including CRP is less than 5. Any for 2020, the patient is doing well on oxygen at 5 L to maintain a saturation above 90%. He has acute hypoxic respiratory failure due to Covid 19 related pneumonia. He also has CHF, EF around 25-30%. In terms of his treatment, he is on Lovenox 40 mg subcu daily basis. He is also on Decadron 6 mg by mouth daily. He is on Levemir insulin 15 units daily at bedtime. No new complaints. Inflammatory markers have been improving and his CRP level is already normalizes less than 5. Note that his creatinine stable at 1.6 with a mean of 85 and his sodium is at 133. White cell count is at 7.3 and hemoglobin is at all 0.5. The chest exit from yesterday was not showing any major interval change. The patient is currently on oral Lasix. 09/28/2020 the patient is feeling essentially the same as yesterday. He is currently down to 5 L of oxygen by nasal cannula and is off the Ventimask. He has no specific complaints.. He is afebrile. Pulse ox is 91% 40s about 2 by nasal cannula. He is able to speak of. This has been is ambulating. He is on Levemir insulin for blood sugar control. His CRP is already normalized. C linically the patient is doing well. On the chest x-ray there was a mention of normal pericardium and I would suggest repeating the chest x-ray and if abnormal will do a CAT scan of the chest. For now the patient on 5 L of oxygen by nasal cannula. Doing well. No specific complaints. He remains on Decadron. The patient's LDH phase of 674 and a CRP of less than 5 On 09/29/2020, was still having some abnormal findings of pneumopericardium/pneumomediastinum on his chest x-ray. Nevertheless, the patient is clinically stable and he is down to 2 L of oxygen by nasal cannula with a pulse ox maintained above 90%. He is currently having lunch. Note that yesterday was down to 4 L. Upon going for a CAT scan, he did have a vasovagal episodes. The patient is going to be taken again to a CAT scan to further characterize abnormalities seen on the chest x-ray. I think this is a complications of the Covid 19 pneumonia/lung infection with normal mediastinum and some limited air within the mediastinal structures. Otherwise, the chest x- ray showing stable bilateral pulmonary infiltrates consistent with Covid 19 related pneumonia with peripheral distributions worse in the lung bases and wor se on the left. No nausea. No vomiting. No abdominal pain. No chest pain. The blood work from today is showing a sugar of 144. The rest of the blood work has not been done. Creatinine from yesterday was 1.6. He is on Decadron and his LDH and CRP were quite low from earlier evaluations. Note that he has CHF with an ejection fraction of 20-25% and his CHF is well compensated. He remains on Levemir insulin for blood sugar control along with 4 units with meals and a stye scale coverage. He remains on Lovenox 40 mg subcu on a daily basis. Her latest d-dimer is 1.94. Objective - Vital Signs Vital signs: Vital Signs Temp 97.9 F 09/29/20 08:00 Pulse 73 09/29/20 08:00 Resp 16 09/29/20 04:00 BP 119/70 09/29/20 08:00 Pulse Ox 97 09/29/20 08:00 Intake & Output 09/28/20 09/29/20 09/29/20 18:59 06:59 18:59 Intake Total 840 240 Output Total 500 400 Balance 340 -160 Weight 67.5 kg Intake: Oral 840 240 Output: Urine 500 400 Other: Voiding Method External Catheter - Exam GENERAL EXAM: Alert, pleasant 69-year-old gentleman, and 2 L high flow nasal cannula, comfortable in no apparent distress. HEAD: Normocephalic. EYES: Normal reaction of pupils, equal size. NOSE: Clear with pink turbinates. THROAT: No erythema or exudates. NECK: No masses, no JVD. CHEST: No chest wall deformity. LUNGS: Equal air entry with crackles in the bilateral posterior bases. CVS: S1 and S2 normal with an audible murmur, regular rhythm. ABDOMEN: No hepatosplenomegaly, normal bowel sounds, no guarding or rigidity. SPINE: No scoliosis or deformity SKIN: No rashes CENTRAL NERVOUS SYSTEM: No focal deficits, tone is normal in all 4 extremities. EXTREMITIES: There is no peripheral edema. No clubbing, no cyanosis. Peripheral pulses are intact. - Labs CBC & Chem 7: 09/28/20 11:42 09/28/20 11:42 Labs: Abnormal Lab Results - Last 24 Hours (Table) 09/25/20 09/26/20 09/28/20 Range/Units 07:06 07:01 11:42 RBC 6.51 H (4.30-5.90) m/uL Hgb 12.5 L (13.0-17.5) gm/dL MCV 64.6 L (80.0-100.0) fL MCH 19.3 L (25.0-35.0) pg MCHC 29.9 L (31.0-37.0) g/dL Lymphocytes # 0.8 L (1.0-4.8) k/uL Sodium (137-145) mmol/L Chloride (98-107) mmol/L BUN (9-20) mg/dL Creatinine (0.66-1.25) mg/dL Glucose (74-99) mg/dL POC Glucose (mg/dL) (75-99) mg/dL LD Isoenzymes 293 H 252 H (120-250) U/L LD 2 46 H 46 H (30-43) % 09/28/20 09/28/20 09/28/20 Range/Units 11:42 17:05 20:24 RBC (4.30-5.90) m/uL Hgb (13.0-17.5) gm/dL MCV (80.0-100.0) fL MCH (25.0-35.0) pg MCHC (31.0-37.0) g/dL Lymphocytes # (1.0-4.8) k/uL Sodium 134 L (137-145) mmol/L Chloride 97 L (98-107) mmol/L BUN 80 H (9-20) mg/dL Creatinine 1.68 H (0.66-1.25) mg/dL Glucose 154 H (74-99) mg/dL POC Glucose (mg/dL) 228 H 244 H (75-99) mg/dL LD Isoenzymes (120-250) U/L LD 2 (30-43) % 09/29/20 09/29/20 Range/Units 07:06 12:10 RBC (4.30-5.90) m/uL Hgb (13.0-17.5) gm/dL MCV (80.0-100.0) fL MCH (25.0-35.0) pg MCHC (31.0-37.0) g/dL Lymphocytes # (1.0-4.8) k/uL Sodium (137-145) mmol/L Chloride (98-107) mmol/L BUN (9-20) mg/dL Creatinine (0.66-1.25) mg/dL Glucose (74-99) mg/dL POC Glucose (mg/dL) 117 H 144 H (75-99) mg/dL LD Isoenzymes (120-250) U/L LD 2 (30-43) % Assessment and Plan Plan: 1 Acute hypoxemic respiratory failure secondary to CoVID 19 pneumonia. Outside the window for Remdesivir. Did receive tocilizumab, convalescent plasma. The patient is currently on 2 L by nasal cannula. Inflammatory markers are improving. The patient remains on Decadron. The patient remains on 2 L of oxygen by nasal cannula. The patient has a known mediastinum/ pneumop ericardium, a complication of Covid 19 related pneumonia. We'll evaluate this further with computed tomography scan of the chest. No major change will be offered in terms of the plan. 2 Severe left ventricular systolic function with ejection fraction 25-30% 3 Diabetes mellitus, currently on Levemir insulin 4 Lifelong nonsmoker 5 History of right below the knee amputation 6 Syncope with bradycardia, suspect vasovagal during bowel movement 7 chronic kidney disease in the patient's creatinine is stable Plan: Improving from the pulmonary standpoint currently on 2 L of oxygen by nasal cannula and should be weaned down further as long as the saturation remains above 90% Titrate down the FiO2 as tolerated, current pulse ox is above 90% Review the computed tomography scan of the chest once is completed Recommend Decadron on outpatient basis probably for another week. We'll extend his total course of treatment for a total of 20 days including his hospitalization. incentive spirometer We will continue to follow
--- NOTE | 2020-09-29 13:47 | CT ---
EXAMINATION TYPE: CT chest wo con DATE OF EXAM: 09/29/2020 COMPARISON: 09/28/2020 HISTORY: Possible pneumomediastinum and pneumopericardium. CT DLP: 344.4 mGycm. Automated Exposure Control for Dose Reduction was Utilized. TECHNIQUE: CT scan of the thorax is performed without IV contrast. FINDINGS: LUNGS: Diffuse bilateral areas of multifocal patchy pneumonia are seen correlate for diffuse pneumoni a. ARDS also the differential diagnosis. No sizable pleural effusion.. MEDIASTINUM: Lack of IV contrast is noted to limit evaluation for mediastinal and especially hilar ad enopathy. There is extensive pneumomediastinum and soft tissue emphysema extending into the neck. Cou ld not exclude a less than 5% anterior left pneumothorax. Tiny amount of pneumopericardium also suspe cted. Heart size is prominent. Coronary artery calcification noted. Atherosclerotic change of the aor ta.. OTHER: Gallbladder is dilated there are numerous gallstones. Correlate for gallbladder hydrops. Vascu lar calcifications are seen and there is hypertrophic and degenerative changes of the spine. Calcific ation seen posteriorly within the mid thoracic spine may represent calcified disc herniations. Suspec t multilevel canal stenosis. Correlate clinically. IMPRESSION: 1. Extensive pneumomediastinum with soft tissue emphysema extending into this soft tissues of the nec k. Suspect a small amount of pneumopericardium and pericardium. 2. Cannot exclude a tiny less than 5% anterior left pneumothorax 3. Diffuse airspace disease compatible with multifocal pneumonia 4. Numerous gallstones with dilated gallbladder correlate for gallbladder hydrops or biliary obstruct ion.
--- NOTE | 2020-09-29 16:09 | P.PN ---
Subjective Progress Note Date: 09/29/20 Pt had repeat XR today with similar findings of pneumomediastinum with some pneumopericardium; had CT follow up which confirmed findings. Also with small apical right pneumothorax. Pt is symptomatically improved, tells me he feels better today, as if less trouble breathing. O2 requirement is now down to 2L on ambulation, and patient is 92% on room air. I had an opportunity to speak to Vane today to update her on these findings and care plan. Incidentally, patient had an unresponsive episode just prior to CT, likely vasovagal. Consequently, between this episode and CT findings, we will observe for one more day with plan for discharge tomorrow AM. Objective - Vital Signs Vital signs: Vital Signs Temp 97.9 F 09/29/20 08:00 Pulse 74 09/29/20 12:00 Resp 16 09/29/20 04:00 BP 123/67 09/29/20 12:00 Pulse Ox 97 09/29/20 12:00 Intake & Output 09/28/20 09/29/20 09/29/20 18:59 06:59 18:59 Intake Total 840 480 Output Total 500 400 Balance 340 80 Weight 67.5 kg Intake: Oral 840 480 Output: Urine 500 400 Other: Voiding Method External Catheter - Exam Gen: awake, alert HEENT: normocephalic, atraumatic, good hearing acuity, moist mucous membranes Resp: good air exchange, breathing comfortably with no accessory muscle use, CVS: good distal perfusion x 4,, regular rate and rhythm without murmurs GI: soft, NTTP, ND, normal breath sounds : no SPT, no CVAT, triana catheter not present MSK: no pitting edema, no clubbing Neuro: non-focal, moving all extremities Psych: cooperative, euthymic mood - Labs CBC & Chem 7: 09/28/20 11:42 09/28/20 11:42 Labs: Abnormal Lab Results - Last 24 Hours (Table) 09/25/20 09/26/20 09/28/20 Range/Units 07:06 07:01 17:05 POC Glucose (mg/dL) 228 H (75-99) mg/dL LD Isoenzymes 293 H 252 H (120-250) U/L LD 2 46 H 46 H (30-43) % 03/09/29/20 09/29/20 Range/Units 20:24 07:06 12:10 POC Glucose (mg/dL) 244 H 117 H 144 H (75-99) mg/dL LD Isoenzymes (120-250) U/L LD 2 (30-43) % Assessment and Plan Assessment: Covid pneumonitis resulting in acute hypoxic respiratory failure -Patient decreased O2 needs down to 2 L nasal cannula with SpO2 94%. Will continue to wean as patient tolerates. -Inflammatory markers improved CRP < 5.0 from initial 66.4, LDH 674 from initial 2084 and d-dimer 1.94 from initial 32.24. - Decadron 6 mg daily, today is day 11 of 20 total planned per pulmonology -Continue vitamin C, vitamin D, and zinc. -Continue MDIs as needed. -Patient received convalescent plasma and Toclilizumab. -Pulmonology is following along closely, appreciate further recommendations. -Continue DVT prophylaxis with Lovenox. -PT/OT to evaluate patient's stamina and ability to ambulate to better anticipate the required assistance pt may need upon discharge after prolonged time being immobile with this extended hospital stay. -Ambulatory pulse ox Severely impaired left ventricular systolic function with an ejection fraction of 25-30% -Cardiology following, appreciate further recommendations. -Cardiology transition patient from IV to oral Lasix 40 mg daily -We will continue to monitor Strict I's and O's. -Continuous telemetry monitoring. -Continue metoprolol 25 mg daily. Syncopal episode, likely secondary to vasovagal event -Continuous telemetry monitoring -Fall precautions -Monitor vital signs -Orthostatic vitals Acute kidney injury, improving -Elevation in renal function with BUN of 81, creatinine 1.61, and GFR of 43. -Continue Lasix 40 mg orally once daily. -We will continue to monitor closely with repeat a.m. labs to evaluate renal function along with electrolyte values. Insulin-dependent diabetes mellitus type II with hyperglycemia -Glycemic protocol remains in place, secondary to hyperglycemia we have added NovoLog 4 units 3 times daily with meals in addition to NovoLog sliding scale along with Levemir 15 units nightly. -Heart healthy carb consistent diet. Elevated troponin, d-dimer, and inflammatory markers most likely resulting from Covid 19 virus infection -Patient asymptomatic denying having any chest pain, palpitations or further cardiac complaints. -EKG revealed normal sinus rhythm at 83 bpm with a prolonged QT/QTC of 422/495 ms, no T-wave or ST abnormalities noted. -Continuous telemetry monitoring. -Continue DVT prophylaxis with Lovenox. Thrombocytopenia, resolved. CODE STATUS: Full code DVT prophylaxis: Lovenox Discussed with: Patient and RN, offered again to update patient's family. Patient declined, stating he spoke with his girlfriend yesterday and is keeping her updated. Anticipated discharge date: Possibly tomorrow morning pending PT/OT evaluation and ambulatory pulse oximetry. Anticipated discharge place: Home with home care
[2020-09-29 16:58] LABS: Glucose,Whole Blood 244 mg/dL (75-99)
[2020-09-29 20:18] LABS: Glucose,Whole Blood 289 mg/dL (75-99)
[2020-09-29] MEDS: INSULIN DETEMIR (LEVEMIR) 100 UNIT/ML SYR SQ SCH (20:22)
[2020-09-30 06:34] VITALS: RESP 20; TEMP 98.2
[2020-09-30 07:12] LABS: Glucose,Whole Blood 118 mg/dL (75-99)
[2020-09-30] MEDS: INSULIN ASPART (NovoLOG) 100 UNIT/ML VIAL SQ SCH ×6 (07:15→17:35)
[2020-09-30] MEDS: ENOXAPARIN 40 MG/0.4 ML SYRINGE SQ SCH (08:48)
[2020-09-30] MEDS: FUROSEMIDE 40 MG TAB PO SCH (08:49)
[2020-09-30] MEDS: dexAMETHasone 2 MG TAB PO SCH (08:49)
[2020-09-30] MEDS: ZINC SULFATE 220 MG CAP PO SCH (08:49)
[2020-09-30] MEDS: CHOLECALCIFEROL 25 MCG (1000 IU) TABLET PO SCH (08:49)
[2020-09-30] MEDS: ASCORBIC ACID 500 MG TAB PO SCH (08:49)
[2020-09-30] MEDS: polyethylene glycoL 3350 17 GM POWD.PACK PO SCH (08:49)
[2020-09-30] MEDS: METOPROLOL SUCCINATE (ER) 25 MG TAB.ER.24H PO SCH (08:49)
[2020-09-30 11:14] VITALS: BP 117/59
[2020-09-30 12:09] LABS: Glucose,Whole Blood 234 mg/dL (75-99)
[2020-09-30 13:06] VITALS: PULSE 69
--- NOTE | 2020-09-30 13:25 | P.PN ---
Subjective Progress Note Date: 09/30/20 69-year-old male, who presented to the emergency department, on 09/17/2020. The patient apparently came in with complaints of shortness of breath, fever, and recently being tested positive for COVID 19. The patient hasn't been feeling well for a couple weeks now, and about 5 or 6 days ago, was tested here at this hospital and was positive for coronavirus. The patient was not having major issues at that time, and therefore was discharged home. More recently, over the last couple of days, he states that he is becoming more more symptomatic. He had muscle aches, poor appetite, loss of taste, just feeling fatigued, and shortness of breath on exertion. No fever or chills. He wasn't coughing up any phlegm. His cough is mostly nonproductive. He denied any chest pain or chest discomfort. There is no nausea, vomiting, diarrhea, or abdominal pain. A chest x-ray was done and showed bilateral infiltrates, and, his white count was 4.5, hemoglobin 13, hematocrit 41.5, and platelet count 312,000. D-dimer was 32.24, PaO2 was 64, with a PaCO2 of 28 and a pH is 7.49. Sodium was 135, potassium 4.3, chlorides 100, CO2 23, anion gap 12, BUN 56, and creatinine 1.77. Lactic acid was 2.1, LDH was 2084, and C-reactive protein was 66.4. Pro-calcitonin was 0.74. The patient is a lifelong nonsmoker, and his only major medical problem was that of diabetes. He is status post right BKA. Progress note dated 09/19/2020. This is a 69-year-old male that we saw in consultation yesterday. He presented to the emergency department on September 17, complaining of shortness of breath, fever, and recently been tested positive for COVID 19. Currently, the patient's on O2 at about 7-8 L/m high flow. He is feeling a bit better today. To look at the patient, he appears in no distress. He's not having any conversational dyspnea, audible wheezing, use of accessory muscles. He looks very comfortable. I told him we could not discharge him from the hospital till as oxygen requirements are down below 5 L/m. His only other medical problem is that of diabetes. He is a lifelong nonsmoker. White count is 5.1, hemoglobin 11.9, hematocrit 37.5, platelet count 181,000, sodium 137, potassium 3.7, chloride 107, CO2 24, anion gap 6, BUN 60, and creatinine 1.60. Patient is seen today 09/20/2020 in follow-up on the selective care unit. He is currently sitting up in a chair at the bedside. Awake and alert in no acute distress. Breathing better today compared to yesterday. Still requiring 15 L high flow nasal cannula to maintain O2 saturation in the 90s. He's been afebrile. He has received 1 unit of convalescent plasma. Blood cultures reveal no growth. White count 4.4. Hemoglobin 11.8. Platelets 149. Lymphocytes 0.3. Sodium 139. Potassium 3.8. Creatinine 1.41. He remains on dexamethasone, Lovenox, vitamin supplements. The patient is seen today 09/21/2020 in follow-up on the selective care unit. Currently resting fairly comfortably in bed. Last evening he started having inc reasing shortness of breath. He is now on 15 L high phone nasal cannula in addition to a nonrebreather mask to maintain O2 saturation in the low 90s. He is afebrile. Hemodynamically stable. Chest x-ray reveals stable patchy bilateral infiltrates. Doppler of the left lower extremity was negative for DVT. Echocardiogram reveals severely impaired left ventricular systolic function with ejection fraction 25-30%. No evidence of thrombus. Blood culture reveals no growth. White count 6.8. Hemoglobin 12.6. D-dimer 6.29. Sodium 139. Potassium 3.8. Creatinine 1.28. LDH 635. C-reactive protein 19.9. He remains on Lovenox, dexamethasone, vitamin supplements. The patient is seen today 09/22/2020 in follow-up on the selective care unit. He is currently sitting up in bed. Awake and alert in no acute distress. He is still requiring 15 L high flow nasal cannula to maintain O2 saturation at 90%. 0.9 normal saline at KVO. He did receive tocilizumab and convalescent plasma. Remains on Lovenox, Decadron, vitamin supplements. The patient is seen today 09/23/2020 in follow-up on the selective care unit. Presently he is sitting up in the bed awake and alert in no acute distress. Earlier this morning while the patient was having a bowel movement he developed a bradycardic episode of syncope and CODE BLUE was called but the patient had return of spontaneous circulation. He denies any chest discomfort and dizziness or lightheadedness. He denies any worsening shortness of breath, cough or congestion. His x-ray continues to show patchy mid and lower lung field infiltrates compatible with resolving atypical pneumonia. Platelike atelectasis in the right lung base. Still requiring 15 L high flow nasal cannula in addition to a nonrebreather mask to maintain O2 saturations in the 90s. He's been afebrile. Hemodynamically stable. White count 10.8. Hemoglobin 13.4. D- dimer 3.50. Sodium 137. Potassium 3.6. Creatinine 1.75. LDH 1462. C- reactive protein 16.8. Markers are trending down. He has received tocilizumab and convalescent plasma. He remains on Lovenox, dexamethasone, vitamin supplements. The patient is seen today 09/24/2020 in follow-up on the selective care unit. He is currently sitting up in bed. Awake and alert in no acute distress. No further episodes of syncope or vasovagal episodes. He is still requiring 15 L high flow nasal cannula to maintain O2 saturations in the 90s. He is not requiring a nonrebreather mask this morning. He did receive convalescent plasma. He received tocilizumab. Continued on Lovenox, Decadron, vitamin vivar pplements. White count 10.4. Hemoglobin 12.5. D-dimer 1.94. Sodium 135. Potassium 4.1. Creatinine 1.92. LDH 1089. C-reactive protein 10.8. 09/25/2020 the patient is being seen for a follow-up. The patient was being treated for acute hypoxemic respiratory failure secondary to CoVID 19 pneumonia. Outside the window for Remdesivir. Did receive tocilizumab, convalescent plasma. The patient also has CHF with impaired LV function with an ejection fraction of 25-30%. Patient is diabetic and has previous amputation of the right lower extremity below the knee. Patient is currently on 10 L nasal cannula. The patient is afebrile. The patient is hemodynamically stable. The patient is also on Decadron 6 mg daily basis. The patient on Levemir insulin 15 it's at bedtime in addition to 4 units of NovoLog with meals and a sliding scale coverage. No new complaints otherwise for now. The most recent LDH from yesterday was 1089 and the CRP was 10.8. Creatinine is at 1.9 from yesterday as the patient has chronic kidney disease. The patient has been weaned down to 10 L of oxygen by nasal cannula and his pulse ox is still 09/26/2020 I'm seeing the patient for a follow-up. The patient is being treated for acute hypoxic respiratory failure for Covid 19 related to pneumonia. Yes terday he was on 10 L and currently is down to 4 L of oxygen by nasal cannula and the patient's pulse ox is around 94%. The patient also has CHF and the patient has an ejection fraction of 25-30%. The patient has diabetes and previous amputation of the right lower extremity above the knee. The patient is on Lasix orally and the patient is receiving Lasix 40 mg once a day. The patient is on Decadron 6 mg by mouth daily. The patient is on Levemir insulin in addition to NovoLog insulin for blood sugar control. Chest x-ray is showing stable bilateral pulmonary infiltrates, I do not see any major interval change compared to the earlier chest films. In terms of her blood work, the patient h as a creatinine of 1.6 which is also improved compared to yesterday. Electrolytes are all within normal limits. Inflammatory markers including CRP is less than 5. Any for 2020, the patient is doing well on oxygen at 5 L to maintain a saturation above 90%. He has acute hypoxic respiratory failure due to Covid 19 related pneumonia. He also has CHF, EF around 25-30%. In terms of his treatment, he is on Lovenox 40 mg subcu daily basis. He is also on Decadron 6 mg by mouth daily. He is on Levemir insulin 15 units daily at bedtime. No new complaints. Inflammatory markers have been improving and his CRP level is already normalizes less than 5. Note that his creatinine stable at 1.6 with a mean of 85 and his sodium is at 133. White cell count is at 7.3 and hemoglobin is at all 0.5. The chest exit from yesterday was not showing any major interval change. The patient is currently on oral Lasix. 09/28/2020 the patient is feeling essentially the same as yesterday. He is currently down to 5 L of oxygen by nasal cannula and is off the Ventimask. He has no specific complaints.. He is afebrile. Pulse ox is 91% 40s about 2 by nasal cannula. He is able to speak of. This has been is ambulating. He is on Levemir insulin for blood sugar control. His CRP is already normalized. C linically the patient is doing well. On the chest x-ray there was a mention of normal pericardium and I would suggest repeating the chest x-ray and if abnormal will do a CAT scan of the chest. For now the patient on 5 L of oxygen by nasal cannula. Doing well. No specific complaints. He remains on Decadron. The patient's LDH phase of 674 and a CRP of less than 5 On 09/29/2020, was still having some abnormal findings of pneumopericardium/pneumomediastinum on his chest x-ray. Nevertheless, the patient is clinically stable and he is down to 2 L of oxygen by nasal cannula with a pulse ox maintained above 90%. He is currently having lunch. Note that yesterday was down to 4 L. Upon going for a CAT scan, he did have a vasovagal episodes. The patient is going to be taken again to a CAT scan to further characterize abnormalities seen on the chest x-ray. I think this is a complications of the Covid 19 pneumonia/lung infection with normal mediastinum and some limited air within the mediastinal structures. Otherwise, the chest x- ray showing stable bilateral pulmonary infiltrates consistent with Covid 19 related pneumonia with peripheral distributions worse in the lung bases and wor se on the left. No nausea. No vomiting. No abdominal pain. No chest pain. The blood work from today is showing a sugar of 144. The rest of the blood work has not been done. Creatinine from yesterday was 1.6. He is on Decadron and his LDH and CRP were quite low from earlier evaluations. Note that he has CHF with an ejection fraction of 20-25% and his CHF is well compensated. He remains on Levemir insulin for blood sugar control along with 4 units with meals and a stye scale coverage. He remains on Lovenox 40 mg subcu on a daily basis. Her latest d-dimer is 1.94. On 09/30/2020 I'm seeing this patient for a follow-up. The patient is doing well and currently is on oxygen at 2 L of oxygen by nasal cannula. There was a concern about a pneumopericardium. Based on that, a CAT scan of the chest was completed yesterday. The patient had no mediastinum without evidence of any pneumothorax. Inflammatory changes are seen in the lung bases consistent with Covid 19 related pneumonia. There is also some degree of pneumopericardium. This is all a complication of Covid 19 related pneumonia and the patient is clinically stable and hemodynamically stable. The patient does not have any subcutaneous emphysema on his physical examination. In terms of treatment, he is on Decadron. His LDH and CRP levels have already dropped significantly and the last level was 674 for LDH and less than 54 CRP. In terms of treatment, the patient is on Decadron 6 mg by mouth daily. He is on Levemir insulin 15 units daily at bedtime along with a sliding scale coverage. Lovenox 40 mg subcu on a daily basis. Discharge planning is in progress for now. He is known to have cardiomyopathy. Ejection fraction of 20-25%. He has also other comorbidities which include diabetes mellitus. Objective - Vital Signs Vital signs: Vital Signs Temp 98.2 F 09/30/20 08:00 Pulse 69 09/30/20 12:00 Resp 20 09/30/20 04:00 BP 117/59 09/30/20 08:00 Pulse Ox 96 09/30/20 12:00 Intake & Output 09/29/20 09/30/20 09/30/20 18:59 06:59 18:59 Intake Total 1440 120 Output Total 1700 560 Balance -260 -560 120 Weight 66.7 kg Intake: Oral 1440 120 Output: Urine 1700 260 Stool 300 Other: Voiding Method External Catheter # Voids 1 # Bowel Movements 1 - Exam GENERAL EXAM: Alert, pleasant 69-year-old gentleman, and 2 L high flow nasal cannula, comfortable in no apparent distress. HEAD: Normocephalic. EYES: Normal reaction of pupils, equal size. NOSE: Clear with pink turbinates. THROAT: No erythema or exudates. NECK: No masses, no JVD. CHEST: No chest wall deformity. LUNGS: Equal air entry with crackles in the bilateral posterior bases. CVS: S1 and S2 normal with an audible murmur, regular rhythm. ABDOMEN: No hepatosplenomegaly, normal bowel sounds, no guarding or rigidity. SPINE: No scoliosis or deformity SKIN: No rashes CENTRAL NERVOUS SYSTEM: No focal deficits, tone is normal in all 4 extremities. EXTREMITIES: There is no peripheral edema. No clubbing, no cyanosis. Peripheral pulses are intact. - Labs CBC & Chem 7: 09/28/20 11:42 09/28/20 11:42 Labs: Abnormal Lab Results - Last 24 Hours (Table) 09/29/20 09/29/20 09/30/20 Range/Units 16:57 20:16 07:11 POC Glucose (mg/dL) 244 H 289 H 118 H (75-99) mg/dL 09/30/20 Range/Units 12:08 POC Glucose (mg/dL) 234 H (75-99) mg/dL Assessment and Plan Plan: 1 Acute hypoxemic respiratory failure secondary to CoVID 19 pneumonia. Outside the window for Remdesivir. Did receive tocilizumab, convalescent plasma. The patient is currently on 2 L by nasal cannula. Inflammatory markers are improving. The patient remains on Decadron. The patient remains on 2 L of oxygen by nasal cannula. The patient has a known mediastinum/ pneumopericardium, a complication of Covid 19 related pneumonia. The CAT scan of the chest was reviewed and there is known mediastinum with soft tissue emphysema extending into the soft tissues of the neck and there is also some pneumopericardium. I do not appreciate any pneumothorax. There is bilateral airspace disease more so the lung bases consistent with Covid 19 related pne umonia. Despite all these complications related to Covid 19, clinically the patient has done well and is down to 2 L of oxygen by nasal cannula for now. They're pneumomediastinum and the pneumopericardium is most likely complication of Covid 19. 2 cardiomyopathy with impaired ejection fraction of 25-30% 3 diabetes mellitus on Levemir insulin 4 nonsmoker 5 History of right below the knee amputation 6 Syncope with bradycardia, suspect vasovagal during bowel movement 7 chronic kidney disease in the patient's creatinine is stable Plan: Improving from the pulmonary standpoint currently on 2 L of oxygen by nasal cannula and should be weaned down further as long as the saturation remains above 90% Titrate down the FiO2 as tolerated, current pulse ox is above 90% Review the computed tomography scan of the chest once is completed Recommend Decadron on outpatient basis probably for another week. We'll extend his total course of treatment for a total of 20 days including his hosp italization. incentive spirometer We will continue to follow
--- NOTE | 2020-09-30 14:56 | P.DS ---
Providers Date of admission: 09/17/20 21:08 Expected date of discharge: 09/30/20 Attending physician: Edgar Sears MD Consults: 09/17/20 19:56 Consult Physician Routine Consulting Provider: Whit Batres Consult Reason/Comments: hypoxic respiratory failure Do you want consulting provider notified?: Yes 09/21/20 13:42 Consult Physician Routine Consulting Provider: Jose Carlos Jean Baptiste Consult Reason/Comments: COVID, increased O2 needs echo showing EF 25% Do you want consulting provider notified?: Yes Primary care physician: [facility] Course: 69-year-old male with a past medical history of type 2 insulin-dependent diabetes mellitus and right BKA. Patient was diagnosed with Covid 19 virus infection on 09/12/20 and continued to have increasing shortness of breath and fatigue accompanied by muscle aches, poor appetite, and loss of taste resulting in him coming to the hospital for evalution.Upon arrival he was found to be in acute respiratory failure with hypoxia with SPO2 78% on room air requiring BIPAP with supplemental oxygenation. Lab findings revealed an elevated d-dimer of 32.24; respiratory alkalosis with pCO2 of 28, PaO2 of 64, and pH of 7.49; elevated lactate of 2.1; ferritin of 1679.6; LDH 2084; troponin 0.146; CRP is 66.4; a KCI with BUN of 56, creatinine 1.77, and GFR of 38; and pro-calcitonin of 0.74. As a result, Mr. Stockton was admitted to the hospital on 09/17/20 for acute respiratory failure with hypoxia resulting from Covid 19 virus infection with pneumonitis. Upon admission and chest x-ray was positive for bilateral multifocal pneumonia. His EKG revealed normal sinus rhythm at 83 bpm with a prolonged QT/QTC of 422/495 ms, no T-wave or ST abnormalities noted. Patient was treated with bronchodilators as well as Decadron 6 mg daily. Patient was also treated with vitamin C, vitamin D, and zinc. DVT prophylaxis with Lovenox. Patient continued to be in hypoxic respiratory failure on high flow NC at 10 L via high flow nasal cannula at this time with SPO2 93%. Venous Doppler of left lower extremity negative for DVTs. Echocardiogram revealed mild concentric LVH with a severely impaired ejection fraction of 25-30%. Patient was diuresed with Lasix and was started on metoprolol. He was followed by pulmonology and cardiology during the hospitalization. Cardiac service recommended outpatient follow-up for the cardiomyopathy. Heart cath will be obtained as an outpatient according to cardio. Follow up instructions will be provided. D/w nursing staff. Time for discharge 36 min Patient Condition at Discharge: Critical Plan - Discharge Summary Discharge Rx Participant: No New Discharge Prescriptions: New Furosemide [Lasix] 40 mg PO DAILY 30 Days #30 tab Metoprolol Succinate (ER) [Toprol XL] 25 mg PO DAILY 30 Days #30 tab.er.24h Albuterol Inhaler [Ventolin Hfa Inhaler] 2 puff INHALATION RT-QID PRN 30 Days #1 inh PRN Reason: Shortness Of Breath Or Wheezing dexAMETHasone [Hexadrol] 6 mg PO DAILY 4 Days #4 tab Continue INSULIN ASPART (NovoLOG) [NovoLOG (formulary)] 4 unit SQ AC-BRKFST Insulin Glargine [Lantus] 15 unit SQ HS INSULIN ASPART (NovoLOG) [NovoLOG (formulary)] 5 unit SQ AC-BID Discharge Medication List INSULIN ASPART (NovoLOG) [NovoLOG (formulary)] 4 unit SQ AC-BRKFST 09/12/20 [History] INSULIN ASPART (NovoLOG) [NovoLOG (formulary)] 5 unit SQ AC-BID 09/12/20 [History] Insulin Glargine [Lantus] 15 unit SQ HS 09/12/20 [History] Albuterol Inhaler [Ventolin Hfa Inhaler] 2 puff INHALATION RT-QID PRN 30 Days #1 inh 09/30/20 [Rx] Furosemide [Lasix] 40 mg PO DAILY 30 Days #30 tab 09/30/20 [Rx] Metoprolol Succinate (ER) [Toprol XL] 25 mg PO DAILY 30 Days #30 tab.er.24h 09/30/20 [Rx] dexAMETHasone [Hexadrol] 6 mg PO DAILY 4 Days #4 tab 09/30/20 [Rx] Follow up Appointment(s)/Referral(s): Harrison Alatorre MD [STAFF PHYSICIAN] - 1 Week Junior Murillo MD [Primary Care Provider] - 1-2 days Davis Adamson MD [STAFF PHYSICIAN] - 4 Weeks Activity/Diet/Wound Care/Special Instructions: [facility] [employer] will check your insurance to see if you are eligible for a new Glucometer. You will need to create an account with them, if they do not call you their number is [phone]. The Contour Glucometer you received here in the hospital: you can get strips and lancets from [employer] supplied Oxygen and [employer]. [phone]
[2020-09-30 17:03] LABS: Glucose,Whole Blood 209 mg/dL (75-99)
--- NOTE | 2020-10-02 10:52 | CDI ---
Documentation Clarification Form Date: 10/02/2020 10:50:00 AM From: Aleida Bird CCS Admit Date: 09/17/2020 09:08:00 PM Patient Name: Miki Stockton Visit Number: [id number] Discharge Date: 09/30/2020 06:20:00 PM ATTENTION: The Clinical Documentation Specialists (CDI) and [facility] Coding Staff appreciate your assistance in clarifying documentation. Please respond to the clarification below the line at the bottom and electronically sign. The CDI & [facility] Coding staff will review the response and follow-up if needed. Please note: Queries are made part of the Legal Health Record. If you have any questions, please contact the author of this message via ITS. Dr. Edgar Sears CKD is documented in the PNs 09/25-09/30. History/Risk Factors: DM, AARON, COVID, CHF, Cardiomyopathy Clinical Indicators: Acute on Chronic kidney failure Current BUN: 56, 60, 58, 48, 73, 85 CR: 1.77, 1.60, 1.47, 1.92 GFR: 38, 44, 51, 57. 35 Treatment: Monitor In order to capture the severity of condition, please clarify the stage of the CKD, if known: CKD Stage 1 (GFR > 90) CKD Stage 2 (GFR 60-89) CKD Stage 3a (GFR 45-59) CKD Stage 3b (GFR 30-44) CKD Stage 4 (GFR 15-29) CKD Stage 5 (GFR <15) ESRD Other, please specify Unable to determine unable to determine MTDD
== END 2020-09-30 18:20 | disposition home health service (06) | DRG 177 ==
LOC: EC 19:14 → 3SCARD 21:08
PROVIDERS: ADMIT Internal Medicine; ATTEND Internal Medicine
PROC: 5A09357 Assistance with Respiratory Ventilation, Less than 24 Consecutive Hours, Continuous Positive Airway Pressure (ICD-10-PCS; 2020-09-17)
PROC: 5A0955A Assistance with Respiratory Ventilation, Greater than 96 Consecutive Hours, High Flow/Velocity Cannula (ICD-10-PCS; principal; 2020-09-18)
PROC: XW13325 Transfusion of Convalescent Plasma (Nonautologous) into Peripheral Vein, Percutaneous Approach, New Technology Group 5 (ICD-10-PCS; 2020-09-18)
PROC: XW033H5 Introduction of Tocilizumab into Peripheral Vein, Percutaneous Approach, New Technology Group 5 (ICD-10-PCS; 2020-09-21)
DX: U07.1 COVID-19 (principal); J12.82 Pneumonia due to coronavirus disease 2019; J96.01 Acute respiratory failure with hypoxia; I50.23 Acute on chronic systolic (congestive) heart failure; N17.9 Acute kidney failure, unspecified; E87.4 Mixed disorder of acid-base balance; I31.9 Disease of pericardium, unspecified; I42.8 Other cardiomyopathies; J93.9 Pneumothorax, unspecified; J98.11 Atelectasis; D69.59 Other secondary thrombocytopenia; E11.22 Type 2 diabetes mellitus with diabetic chronic kidney disease; Z79.4 Long term (current) use of insulin; E11.65 Type 2 diabetes mellitus with hyperglycemia; R00.1 Bradycardia, unspecified; K59.00 Constipation, unspecified; N18.9 Chronic kidney disease, unspecified; T45.515A Adverse effect of anticoagulants, initial encounter; Z89.511 Acquired absence of right leg below knee; Z71.3 Dietary counseling and surveillance
CPT/HCPCS: 36415; 36600; 71045; 71250; 80048; 80053; 82728; 82805; 83605; 83615; 83625; 83735; 83880; 84145; 84484; 85025; 85027; 85379; 85610; 85730; 86140; 86850; 86900; 86901; 87040; 93005; 93306; 94640; 94660; 94760; 96374; 99285

== ENCOUNTER → 2021-07-16 | Outpatient (CLI) | payer MEDICARE ==
[2021-07-16 12:21] LABS: HGB 9.6 gm/dL (13.0-17.5); Hypochromasia Marked; MCHC 30.1 g/dL (31.0-37.0); MCV 69.9 fL (80.0-100.0); Mean Platelet Volume 7.7; Microcytosis Moderate; Platelet Count 187 k/uL (150-450); RBC 4.58 m/uL (4.30-5.90); RDW 15.4 % (11.5-15.5); WBC 6.5 k/uL (3.8-10.6)
[2021-07-16 12:41] LABS: Potassium 5.1 mmol/L (3.5-5.1)
== END | disposition home or self-care (01) ==
LOC: LABPAT 11:07
PROVIDERS: ATTEND Internal Medicine Interventional Cardiology
DX: Z01.812 Encounter for preprocedural laboratory examination (principal); R94.30 Abnormal result of cardiovascular function study, unspecified
CPT/HCPCS: 36415; 80051; 82565; 84520; 85027

== ENCOUNTER → 2021-07-17 | Outpatient (CLI) | payer MEDICARE ==
--- NOTE | 2021-07-17 12:46 | US ---
EXAMINATION TYPE: US kidneys/renal and bladder DATE OF EXAM: 07/17/2021 COMPARISON: NONE CLINICAL HISTORY: 70-year-old male N18.32 Stage III kidney disease. CKD, HTN, DM TECHNIQUE: Multiple sonographic images of the kidneys and bladder are obtained. FINDINGS: EXAM MEASUREMENTS: Right Kidney: 10.3 x 6.1 x 5.6 cm Left Kidney: 11.5 x5.1 x 5.9 cm Right Kidney: No hydronephrosis or masses seen Left Kidney: No hydronephrosis or masses seen Bladder: wnl Bilateral Jets seen: Yes Prostate appears enlarged measuring 5.1 x 5.9 x 4.5 cm IMPRESSION: 1. No hydronephrosis. 2. Prostatomegaly at 5.9 cm.
== END | disposition home or self-care (01) ==
LOC: RADUSWWP 10:39
PROVIDERS: ATTEND Internal Medicine
DX: N40.0 Benign prostatic hyperplasia without lower urinary tract symptoms (principal); E11.22 Type 2 diabetes mellitus with diabetic chronic kidney disease; I12.9 Hypertensive chronic kidney disease with stage 1 through stage 4 chronic kidney disease, or unspecified chronic kidney disease; N18.32 Chronic kidney disease, stage 3b
CPT/HCPCS: 76770

== ENCOUNTER 2021-07-24 05:55 | Day surgery (SDC) | payer MEDICARE ==
[2021-07-18 09:03] VITALS: BMI 27.4
[~2021-07-24 05:55] MED LIST: ALPRAZolam 0.25 MG TAB PO PRN; ALPRAZolam 0.5 MG TAB PO PRN; ASPIRIN 325 MG TAB PO STA; HEPARIN SODIUM,PORCINE 10,000 UNIT in SODIUM CHLORIDE 0.9% 1,000 ML IRRIGATION PRN; HEPARIN SODIUM,PORCINE 2,500 UNIT in SODIUM CHLORIDE 0.9% 250 ML IRRIGATION PRN; NITROGLYCERIN SL TABS 0.4 MG TAB SUBLINGUAL PRN
[2021-07-24] MEDS ORDERED: SODIUM CHLORIDE 0.9% 1,000 ML in EMPTY BAG 1 BAG IV ONE (06:00)
[2021-07-24] MEDS ORDERED: SODIUM CHLORIDE 0.9% 1,000 ML IV ONE (06:11)
[2021-07-24 06:38] LABS: Glucose,Whole Blood 121 mg/dL (75-99)
[2021-07-24 06:45] LABS: Basophils % (A) 1 %; Eosinophils % (A) 0 %; HGB 10.2 gm/dL (13.0-17.5); Hypochromasia Marked; Lymphocytes # (A) 1.6 k/uL (1.0-4.8); Lymphocytes % (A) 23 %; MCH 21.1 pg (25.0-35.0); MCHC 30.9 g/dL (31.0-37.0); MCV 68.3 fL (80.0-100.0); Mean Platelet Volume 7.4; Microcytosis Marked; Monocytes # (A) 0.6 k/uL (0-1.0); Monocytes % (A) 8 %; Neutrophils # (A) 4.7 k/uL (1.3-7.7); Neutrophils % (A) 67 %; Platelet Count 222 k/uL (150-450); RBC 4.84 m/uL (4.30-5.90); RDW 15.2 % (11.5-15.5); WBC 7.1 k/uL (3.8-10.6)
[2021-07-24 06:48] VITALS: TEMP 98.9
[2021-07-24] MEDS ORDERED: HEPARIN SODIUM 1,000 UN/ML (10ML VL) ONE (08:44)
[2021-07-24] MEDS ORDERED: VERAPAMIL 2.5 MG/ML 2 ML AMP ONE (08:44)
[2021-07-24] MEDS ORDERED: LIDOCAINE 1% INJ 10MG/ML (20 ML MDV) ONE (08:45)
[2021-07-24] MEDS: MIDAZOLAM 2 MG/2 ML VIAL IV ONE ×2 (09:15→09:19)
[2021-07-24] MEDS ORDERED: LIDOCAINE 1% INJ 10MG/ML (20 ML MDV) SQ ONE (09:17)
[2021-07-24] MEDS: VERAPAMIL SYRINGE (5 MG/10 ML) INTRAARTER ONE ×2 (09:19→09:35)
[2021-07-24] MEDS ORDERED: fentaNYL (PF) 50 MCG/ML 2 ML AMP ONE (09:35)
[2021-07-24] MEDS ORDERED: fentaNYL (PF) 50 MCG/ML 2 ML AMP IV ONE (09:37)
[2021-07-24] MEDS ORDERED: IOPAMIDOL-370 100ML BTL INJ ONE (09:40)
[2021-07-24] MEDS ORDERED: SODIUM CHLORIDE 0.9% 1,000 ML IV SCH (10:00)
[2021-07-24] MEDS ORDERED: INSULIN ASPART (NovoLOG) 100 UNIT/ML VIAL SQ ONE ×2 (10:30→13:01)
--- NOTE | 2021-07-24 11:15 | CC ---
CARDIAC CATHETERIZATION REPORT DATE OF SERVICE: 07/24/2021. PROCEDURE PERFORMED: Left heart catheterization, coronary angiography. PERFORMED BY: Dr. Marcelina Alatorre. Moderate conscious sedation time was 26 minutes. Patient was administered Versed. Oxygen saturation, hemodynamics and EKG were monitored closely. CLINICAL INFORMATION: Mr. 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 He had a positive stress test, exertional shortness of breath and chest tightness and I recommend cardiac cath. Initially I was reluctant. Subsequently, he came back and wanted to have the procedure performed. He has also chronic kidney disease with creatinine of 1.7. He was brought in early, hydrated, all precautions were taken regarding his CKD. The risks, benefits, options were explained. He understood all details and wished to proceed with the procedure. PROCEDURE NOTE: The patient was brought in early and hydrated appropriately. Under strict aseptic precautions and local anesthesia, a 6-Dutch introducer was placed in the right radial artery. Using a JL3.5 and JR4 catheters, I performed coronary angiography and a pigtail catheter was used to check LV pressure but LV gram was not performed. Sheath was taken out and TR band applied as per protocol. Saturation of the fingers of the right hand was 100%. Patient tolerated procedure well without complication. There was quite a bit of spasm of the brachial artery noted. CARDIAC CATHETERIZATION FINDINGS: The left ventricular end-diastolic pressure was 10 mmHg without any gradient across aortic valve. CORONARY ANGIOGRAPHY FINDINGS: RIGHT CORONARY ARTERY: Dominant vessel, large in caliber proximally and mid and distal portion. Mild calcification. Distally it bifurcates into PDA and PLV. Just before the bifurcation, there is a 90% narrowing and before that there was a 60% to 70% narrowing. Distal dominant RCA therefore has a 90% lesion that involves both the branches of the RCA, the PDA and PLV branch, both of which have diffuse disease. LEFT MAIN CORONARY ARTERY: Long patent disease-free vessel that bifurcates into LAD and circumflex. LEFT ANTERIOR DESCENDING CORONARY ARTERY: Good caliber vessel extends along the anterior wall, gives off septal and diagonal branches. In the midportion, there is about a 35% narrowing noted. No significant lesions. LAD is a fair caliber fair distribution vessel with a 35% mid narrowing. The septal and diagonal branches are a fair caliber. No significant disease. LEFT POSTERIOR CIRCUMFLEX CORONARY ARTERY: Nondominant vessel gives off a single obtuse marginal that runs laterally, has no significant disease and the continuation of circumflex in the AV groove distally has an 80% narrowing and distal branches have diffuse disease. The lesion in the circumflex is located in the distal portion. Left ventriculogram was not performed. There were also some collaterals coming from the circumflex system supplying the distal branches of the right coronary artery. FINAL IMPRESSION: This patient has normal filling pressures. No gradient across aortic valve. He has a right dominant system with a distal 90% RCA lesion that involves the bifurcation of PDA and PLV. RCA is dominant. Circumflex nondominant, distally has some diffuse disease, but the amount of myocardium beyond the stenosis is a small amount. Mid LAD has 35% narrowing. LV-gram was not performed. RECOMMENDATIONS: I will perform elective intervention of the distal RCA. This will be performed probably from the right femoral approach given the fact that we will need a 7-Dutch sheath and patient had a lot of spasm. He will require a bifurcation stenting of distal RCA. The details were discussed with the patient. He will be hydrated, brought back for the procedure. We gave him about 75 mL of dye and his contrast threshold was 114. We will be discharged later on today. I will see him in the office in 48 hours and perform elective PCI, which is a complex bifurcation PCI of the RCA and its branches. MMAPPLE / EDWARDN: [id number] /
[2021-07-24 11:57] VITALS: RESP 16
[2021-07-24 12:12] LABS: Glucose,Whole Blood 132 mg/dL (75-99)
[2021-07-24 17:26] VITALS: BP 158/78; PULSE 59
== END 2021-07-24 17:00 | disposition home or self-care (01) ==
LOC: CATHCVL 05:55
PROVIDERS: ATTEND Internal Medicine Interventional Cardiology
DX: R94.30 Abnormal result of cardiovascular function study, unspecified (principal); I25.110 Atherosclerotic heart disease of native coronary artery with unstable angina pectoris; I25.84 Coronary atherosclerosis due to calcified coronary lesion; I10 Essential (primary) hypertension; E78.00 Pure hypercholesterolemia, unspecified; Z20.822 Contact with and (suspected) exposure to COVID-19; E11.9 Type 2 diabetes mellitus without complications; Z89.511 Acquired absence of right leg below knee; Z82.49 Family history of ischemic heart disease and other diseases of the circulatory system; I42.9 Cardiomyopathy, unspecified; Z79.82 Long term (current) use of aspirin; Z79.4 Long term (current) use of insulin; Z79.899 Other long term (current) drug therapy
CPT/HCPCS: 93458; 85025; 83036; 87635; C1894; J2250; J2001; J3010; J1644; Q9967

== ENCOUNTER → 2021-07-30 | Outpatient (CLI) | payer MEDICARE ==
[2021-07-30 22:43] LABS: African American GFR (CKD) 42.7 (60.0-200.0); Anion Gap 10.6 mmol/L (10.00-18.00); Blood Urea Nitrogen 35.5 mg/dL (9.0-27.0); Non-African American GFR(CKD) 36.8 (60.0-200.0); Potassium 4.3 mmol/L (3.5-5.5)
[2021-07-30 22:51] LABS: HCT 33.2 % (39.6-50.0); HGB 9.5 g/dL (13.0-17.0); MCH 19.3 pg (27.0-32.0); MCHC 28.6 g/dL (32.0-37.0); MCV 67.3 fL (80.0-97.0); Mean Platelet Volume 10.9 fL (9.5-12.2); Platelet Count 211 X 10*3/uL (140-440); RBC 4.93 X 10*6/uL (4.40-5.60); WBC 6.09 X 10*3/uL (4.50-10.00)
== END | disposition home or self-care (01) ==
LOC: LABPAT 15:10
PROVIDERS: ATTEND Internal Medicine Interventional Cardiology
DX: Z01.812 Encounter for preprocedural laboratory examination (principal); Z20.822 Contact with and (suspected) exposure to COVID-19; I25.10 Atherosclerotic heart disease of native coronary artery without angina pectoris
CPT/HCPCS: 80051; 82565; 84520; 85027; 87635; 36415; C9803

== ENCOUNTER 2021-08-01 06:58 | Day surgery (SDC) | payer MEDICARE ==
[2021-07-31 09:10] VITALS: BMI 27.8
[~2021-08-01 06:58] MED LIST changes: -HEPARIN SODIUM,PORCINE 10,000 UNIT in SODIUM CHLORIDE 0.9% 1,000 ML IRRIGATION PRN; -HEPARIN SODIUM,PORCINE 2,500 UNIT in SODIUM CHLORIDE 0.9% 250 ML IRRIGATION PRN
[2021-08-01] MEDS ORDERED: HEPARIN SODIUM,PORCINE 10,000 UNIT in SODIUM CHLORIDE 0.9% 1,000 ML IRRIGATION PRN (07:00)
[2021-08-01 07:26] LABS: Glucose,Whole Blood 102 mg/dL (75-99)
[2021-08-01] MEDS: SODIUM CHLORIDE 0.9% 1,000 ML in EMPTY BAG 1 BAG IV SCH ×6 (07:30→23:31)
[2021-08-01] MEDS ORDERED: LIDOCAINE 1% INJ 10MG/ML (20 ML MDV) ONE (10:08)
[2021-08-01] MEDS ORDERED: HEPARIN SODIUM 1,000 UN/ML (10ML VL) ONE (10:29)
[2021-08-01] MEDS ORDERED: MIDAZOLAM 2 MG/2 ML VIAL IV ONE (10:42)
[2021-08-01] MEDS ORDERED: LIDOCAINE 1% INJ 10MG/ML (20 ML MDV) SQ ONE ×2 (10:51)
[2021-08-01] MEDS: HEPARIN SODIUM 1,000 UN/ML (10ML VL) IVP ONE ×2 (10:59→12:03)
[2021-08-01] MEDS ORDERED: IOPAMIDOL-370 100ML BTL INJ ONE ×2 (11:45→12:24)
[2021-08-01] MEDS ORDERED: NITROGLYCERIN 1000MCG/10ML SYRINGE INTRACORON ONE (12:08)
[2021-08-01] MEDS ORDERED: PHENYLEPHRINE-0.9% NACL SYG 1,000 MCG/10 ML SYRINGE IV ONE (12:11)
[2021-08-01] MEDS ORDERED: TICAGRELOR 90 MG TAB ONE (12:18)
[2021-08-01] MEDS ORDERED: TICAGRELOR 90 MG TAB PO ONE (12:23)
[2021-08-01] MEDS ORDERED: RX INFO: IV CONTRAST WAS GIVEN 1 EACH MISC MISCELLANE PRN (12:33)
[2021-08-01] MEDS: SODIUM CHLORIDE 0.9% 1,000 ML IV SCH (15:28)
[2021-08-01] MEDS ORDERED: INSULIN ASPART (NovoLOG) 100 UNIT/ML VIAL SQ SCH (17:00)
[2021-08-01 17:12] LABS: Glucose,Whole Blood 81 mg/dL (75-99)
[2021-08-01 20:56] LABS: Glucose,Whole Blood 178 mg/dL (75-99)
[2021-08-01] MEDS ORDERED: NON FORMULARY DRUG (Insulin Glargine 100 UNIT/ML Vial) SQ SCH (21:00)
[2021-08-01] MEDS ORDERED: LOSARTAN 50 MG TAB PO SCH (21:00)
[2021-08-01] MEDS: INSULIN DETEMIR (LEVEMIR) 100 UNIT/ML SYR SQ SCH ×2 (22:12→22:14)
[2021-08-02] MEDS: SODIUM CHLORIDE 0.9% 1,000 ML IV SCH (03:11)
[2021-08-02] MEDS: SODIUM CHLORIDE 0.9% 1,000 ML in EMPTY BAG 1 BAG IV SCH ×2 (03:12→06:09)
[2021-08-02] MEDS ORDERED: INSULIN ASPART (NovoLOG) 100 UNIT/ML VIAL SQ SCH (07:30)
[2021-08-02 07:33] LABS: Glucose,Whole Blood 98 mg/dL (75-99)
[2021-08-02 07:47] VITALS: BP 137/72; PULSE 63; RESP 18; TEMP 97.7
--- NOTE | 2021-08-02 08:28 | PTCA ---
PERCUTANEOUSTRANS CORORONARY ANGIOGRAPHY DATE OF SERVICE: 08/01/2021. PROCEDURE: Percutaneous transluminal coronary angioplasty and stenting of a complex bifurcation lesion involving the distal RCA dominant vessel with a drug-eluting stent. PERFORMED BY: Dr. Marcelina Alatorre. Moderate conscious sedation time was minutes. Patient was administered Versed. Oxygen saturation, hemodynamics and EKG were monitored closely. CLINICAL INFORMATION: Mr. Stockton is a 70-year-old gentleman with history of diabetes, CKD, hypertension, hyperlipidemia with ischemic cardiomyopathy and an ejection fraction in the 45% range with inferior wall reversible defect. He underwent a cardiac cath a few days ago which revealed a bifurcation 95% lesion with heavy calcification and collateralization partially from the left system. This was a chronic lesion. He was advised intervention after due discussion regarding risks, benefits and options. PROCEDURE NOTE: Under local anesthesia and strict aseptic precautions, a 7-Moldovan introducer was placed in the right femoral artery. A 7-Moldovan right Bozena guide catheter was used to cannulate the right coronary artery. I tried to advance an 0.014 run-through wire, but I could not get beyond the distal tight area of stenosis. I then used a long Whisper wire which was a straight wire with a Super Cross 45 degree. With this I was able to get into the PLV branch. I then used the same Super Cross, and this time using a J- tipped wire I was able to cross the lesion into the PDA. I then pre-dilated the PDA lesion, initially with a 1.5 mini Trek balloon and then with a 2.25 NC Trek balloon of 12 mm length. I then dilated with a 2.5 NC Trek balloon the PLV lesion. I then deployed a 2.5 caliber 18 mm long Xience stent into the PDA. About 12 mm was left in the proximal RCA and the rest into the PDA branch. I then performed proximal vessel optimization using a 3.25 caliber 8 mm long NC Trek balloon and I dilated the proximal portion of the stent at 12 atmospheres. I then did a wire exchange and a new wire was advanced and positioned; this was a short straight run-through wire and this was kept in the PLV branch. I then used a 2.25 caliber 12 mm balloon in the PLV branch and a 2.5 caliber 12 mm NC Trek balloon in the PDA branch. I performed a kissing balloon dilatation with excellent angiographic results. The patient received intracoronary nitroglycerin and had transient hypotension requiring phenylephrine intravenously, and the blood pressure came back very quickly within 5 minutes. Patient received 7500 units of heparin and his ACT was kept between 250 and 300. Excellent angiographic result without complication was achieved. He received 180 mg of Brilinta. The sheath was sutured and patient was sent to the room in a stable condition. Results were discussed with the patient in detail and also with his friend/family member. This note will also go to his PCP. Excellent angiographic result was achieved with remarkably good flow in both branches of RCA. There was no complication. MMODL / IJN: [id number] /
[2021-08-02] MEDS ORDERED: ATORVASTATIN 40 MG TAB PO SCH (09:00)
[2021-08-02] MEDS ORDERED: METOPROLOL SUCCINATE (ER) 50 MG TAB.ER.24H PO SCH (09:00)
[2021-08-02] MEDS ORDERED: TICAGRELOR 90 MG TAB PO SCH (09:00)
[2021-08-02] MEDS ORDERED: ASPIRIN 81 MG PO SCH (09:00)
[2021-08-02 09:22] LABS: Basophils % (A) 0 %; Eosinophils % (A) 0 %; HCT 30.7 % (39.0-53.0); HGB 9.4 gm/dL (13.0-17.5); Hypochromasia Marked; Lymphocytes # (A) 0.9 k/uL (1.0-4.8); Lymphocytes % (A) 16 %; MCH 21.3 pg (25.0-35.0); MCHC 30.7 g/dL (31.0-37.0); MCV 69.6 fL (80.0-100.0); Microcytosis Marked; Monocytes # (A) 0.4 k/uL (0-1.0); Monocytes % (A) 7 %; Neutrophils # (A) 4.3 k/uL (1.3-7.7); Neutrophils % (A) 76 %; Platelet Count 208 k/uL (150-450); RBC 4.41 m/uL (4.30-5.90); RDW 15.8 % (11.5-15.5); WBC 5.7 k/uL (3.8-10.6)
[2021-08-02 09:33] LABS: African American GFR (CKD) 55 (>60 ml/min/1.73 sqM); Anion Gap 4 mmol/L; Blood Urea Nitrogen 27 mg/dL (9-20); Calcium 8.6 mg/dL (8.4-10.2); Carbon Dioxide 22 mmol/L (22-30); Chloride 113 mmol/L (98-107); Glucose 81 mg/dL (74-99); Non-African American GFR(CKD) 48 (>60 ml/min/1.73 sqM); Potassium 4.3 mmol/L (3.5-5.1); Sodium 139 mmol/L (137-145)
--- NOTE | 2021-08-02 12:02 | P.DS ---
Providers Attending physician: Harrison Alatorre Consults: 08/01/21 14:31 Consult Physician Routine Consulting Provider: Ad Cornell Consult Reason/Comments: Post intervention patient Do you want consulting provider notified?: Already Contacted Primary care physician: Peter Aguillon MD Hospital Course: INTERVAL HISTORY: The patient is a 70-year-old male past medical history of chronic kidney disease, coronary artery disease, cardiomyopathy with an EF of 4045 percent, type 2 diabetes, hypertension, hyperlipidemia, right lower extremity BKA admitted to the hospital by Dr. Alatorre. He underwent cardiac catheterization 07/24 revealing normal filling pressures, no gradient across the valve with distal 90% RCA lesion and mid LAD 35% lesion. Patient underwent PCI to the distal RCA on 08/01/21 without complications. Patient seen and examined and evaluated by Dr. Cornell. Patient is alert and oriented x 3, in no acute distress. He has no chest pain or shortness of breath. PHYSICAL EXAMINATION: Blood pressure 137/72, heart rate 63, afebrile, oxygen saturations 98% on room air HEART: S1, S2 normal. LUNGS: Clear to auscultation. NECK: Supple. ABDOMEN: Soft. EXTREMITIES: 2+ peripheral pulses. Right femoral cath site, clean dry, intact, no hematoma 2+ peripheral pulses LAB DATA: WBC 5.7, hemoglobin 9.4, platelets 208, sodium 139, potassium 4.3, BUN 27, serum creatinine 1.4 (baseline since September has been 1.4-1.8) FINAL IMPRESSION: 1. Coronary artery disease s/p PCI to distal RCA on 08/01/21 2. Chronic kidney disease 3. Cardiomyopathy EF 40-45% 4. Type 2 Diabetes 5. History of hypertension 6. Hyperlipidemia PLAN: Patient may be able to be discharged home today. He was started on Brilinta 90mg BID which is covered with a copay of $40.50, and first month will be free. Continue aspirin, losartan, atorvastatin and metoprolol succinate. Patient will follow up in the office on 08/08/21 at 2:30pm. Patient Condition at Discharge: Stable Plan - Discharge Summary New Discharge Prescriptions: New Ticagrelor [Brilinta] 90 mg PO BID 30 Days #60 tab Nitroglycerin Sl Tabs [Nitrostat] 0.4 mg SUBLINGUAL Q5M PRN #25 tab PRN Reason: Chest Pain Continue INSULIN ASPART (NovoLOG) [NovoLOG (formulary)] 4 unit SQ AC-BRKFST Insulin Glargine [Lantus Vial] 20 unit SQ HS INSULIN ASPART (NovoLOG) [NovoLOG (formulary)] 5 unit SQ 1200,1700 Losartan [Cozaar] 50 mg PO HS Atorvastatin [Lipitor] 40 mg PO DAILY Aspirin [Adult Low Dose Aspirin EC] 81 mg PO DAILY Metoprolol Succinate (ER) [Toprol XL] 50 mg PO DAILY Discharge Medication List INSULIN ASPART (NovoLOG) [NovoLOG (formulary)] 4 unit SQ AC-BRKFST 09/12/20 [History] INSULIN ASPART (NovoLOG) [NovoLOG (formulary)] 5 unit SQ 1200,1700 09/12/20 [History] Insulin Glargine [Lantus Vial] 20 unit SQ HS 09/12/20 [History] Aspirin [Adult Low Dose Aspirin EC] 81 mg PO DAILY 07/18/21 [History] Atorvastatin [Lipitor] 40 mg PO DAILY 07/18/21 [History] Losartan [Cozaar] 50 mg PO HS 07/18/21 [History] Metoprolol Succinate (ER) [Toprol XL] 50 mg PO DAILY 07/18/21 [History] Nitroglycerin Sl Tabs [Nitrostat] 0.4 mg SUBLINGUAL Q5M PRN #25 tab 08/01/21 [Rx] Ticagrelor [Brilinta] 90 mg PO BID 30 Days #60 tab 08/01/21 [Rx] Follow up Appointment(s)/Referral(s): Harrison Alatorre MD [STAFF PHYSICIAN] - 08/08/21 2:30 pm (APPOINTMENT MADE ON August @ 2:30PM ) Patient Instructions/Handouts: *Sur[facility] - After Heart Catheterization - [facility] Instructions, Procedural Sedation (ED) Activity/Diet/Wound Care/Special Instructions: *NO LIFTING, PUSHING, OR PULLING ANYTHING OVER 10 POUNDS FOR 5 DAYS *NO DRIVING FOR 3 DAYS *YOU CAN SHOWER TOMORROW BUT DO NOT SUBMERSE YOUR PUNCTURE SITE IN WATER FOR A FEW DAYS TO PREVENT INFECTION - SO NO TUB BATHS, POOLS, HOT TUBS....ETC *ANY SIGNS OF BLEEDING (HARDNESS, SWELLING, OR EXCESSIVE BRUISING) HOLD DIRECT PRESSURE ON YOUR PUNCTURE SITE AND COME TO THE NEAREST EMERGENCY ROOM TO GET YOUR PUNCTURE SITE LOOKED AT - DO NOT DRIVE YOURSELF! EITHER CALL EMS OR HAVE SOMEONE DRIVE YOU! Wyatt is covered with a copay of $40.50, your first month will be free
[2021-08-02 12:07] LABS: Glucose,Whole Blood 144 mg/dL (75-99)
== END 2021-08-02 12:25 | disposition home or self-care (01) ==
LOC: CATHCVL 06:58 → 6NMEDSUR 12:16 → CATHCVL 15:04
PROVIDERS: ATTEND Internal Medicine Interventional Cardiology
DX: I25.10 Atherosclerotic heart disease of native coronary artery without angina pectoris (principal); I25.84 Coronary atherosclerosis due to calcified coronary lesion; I12.9 Hypertensive chronic kidney disease with stage 1 through stage 4 chronic kidney disease, or unspecified chronic kidney disease; N18.9 Chronic kidney disease, unspecified; R94.8 Abnormal results of function studies of other organs and systems; E11.9 Type 2 diabetes mellitus without complications; Z82.49 Family history of ischemic heart disease and other diseases of the circulatory system; E78.00 Pure hypercholesterolemia, unspecified; Z79.82 Long term (current) use of aspirin; Z79.4 Long term (current) use of insulin; Z79.899 Other long term (current) drug therapy
CPT/HCPCS: 80048; 85025; C9600; C1769 ×5; C1725 ×4; C1894; C1887; C1874; J2250; J2001; J1644; J2370; Q9967

== ENCOUNTER 2021-11-22 13:28 | Emergency (ER) | payer MEDICARE ==
[2021-11-22] MEDS ORDERED: ALBUTEROL NEBULIZED 2.5 MG/3 ML INHALATION STA (15:11)
[2021-11-22 15:29] LABS: Basophils % (A) 1 %; Eosinophils % (A) 0 %; HCT 33.4 % (39.0-53.0); Hypochromasia Marked; Lymphocytes # (A) 0.3 k/uL (1.0-4.8); Lymphocytes % (A) 5 %; MCH 20.4 pg (25.0-35.0); MCHC 29.9 g/dL (31.0-37.0); MCV 68.3 fL (80.0-100.0); Microcytosis Marked; Monocytes # (A) 0.5 k/uL (0-1.0); Monocytes % (A) 8 %; Neutrophils # (A) 4.9 k/uL (1.3-7.7); Neutrophils % (A) 84 %; Platelet Count 173 k/uL (150-450); RDW 15.5 % (11.5-15.5); WBC 5.9 k/uL (3.8-10.6)
[2021-11-22 15:49] LABS: Albumin 3.9 g/dL (3.5-5.0); C Reactive Protein 1.1 mg/dL (<1.0); Calcium 8.7 mg/dL (8.4-10.2); Potassium 4.5 mmol/L (3.5-5.1); Total Bilirubin 0.8 mg/dL (0.2-1.3); Total Protein 6.7 g/dL (6.3-8.2)
[2021-11-22] MEDS ORDERED: SODIUM CHLORIDE 0.9% 2,000 ML IV STA (16:09)
[2021-11-22] MEDS ORDERED: BEBTELOVIMAB (EUA) 175 MG/2 ML VIAL IV ONE (16:15)
[2021-11-22] MEDS ORDERED: SODIUM CHLORIDE 0.9% 1,000 ML IV STA (16:29)
--- NOTE | 2021-11-22 16:29 | ED ---
General Adult HPI - General Chief complaint: Recheck/Abnormal Lab/Rx Stated complaint: Covid+/cough/sob Time Seen by Provider: 11/22/21 14:55 Source: patient Mode of arrival: ambulatory Limitations: no limitations - History of Present Illness Initial comments: Patient is a 70-year-old male presents to the emergency department with a chief complaint of upper respiratory symptoms. Patient states his symptoms started 2 days ago. Patient endorses dry cough and congestion. He denies fever, chills, sore throat, shortness of breath, chest pain, and abdominal pain. Patient is not vaccinated. Patient states he had a positive COVID-19 test today at home. Patient and his expressed concern that patient will have cytokine storm because apparently he has history of it with his last covid 19 diagnosis. They request basic labs, CRP, and antibodies. - Related Data Home Medications Medication Instructions Recorded Confirmed INSULIN ASPART (NovoLOG) [NovoLOG 4 unit SQ AC-BRKFST 09/12/20 08/01/21 (formulary)] INSULIN ASPART (NovoLOG) [NovoLOG 5 unit SQ 1200,1700 09/12/20 08/01/21 (formulary)] Insulin Glargine [Lantus Vial] 20 unit SQ HS 09/12/20 08/01/21 Aspirin [Adult Low Dose Aspirin EC] 81 mg PO DAILY 07/18/21 08/01/21 Atorvastatin [Lipitor] 40 mg PO DAILY 07/18/21 08/01/21 Losartan [Cozaar] 50 mg PO HS 07/18/21 08/01/21 Metoprolol Succinate (ER) [Toprol 50 mg PO DAILY 07/18/21 08/01/21 XL] Previous Rx's Medication Instructions Recorded Nitroglycerin Sl Tabs [Nitrostat] 0.4 mg SUBLINGUAL Q5M PRN #25 tab 08/01/21 Ticagrelor [Brilinta] 90 mg PO BID 30 Days #60 tab 08/01/21 Benzonatate [Tessalon Perles] 100 mg PO TID PRN #15 capsule 11/22/21 Allergies Allergy/AdvReac Type Severity Reaction Status Date / Time ragweed pollen Allergy Unknown Verified 11/22/21 13:45 Review of Systems ROS Statement: Those systems with pertinent positive or pertinent negative responses have been documented in the HPI. ROS Other: All systems not noted in ROS Statement are negative. Past Medical History Past Medical History: Coronary Artery Disease (CAD), Heart Failure, Diabetes Mellitus, Hypertension, Prostate Disorder Additional Past Medical History / Comment(s): enlarged prostate, constipation, "mild anemia", migraines, "retinal issues", "occ missed heart beat", Rt BKA-wears prosthesis, had COVID 09/2020 History of Any Multi-Drug Resistant Organisms: None Reported Past Surgical History: Appendectomy, Heart Catheterization, Heart Catheterization With Stent, Orthopedic Surgery Additional Past Surgical History / Comment(s): rt bka, heart cath 07/24/21, ACL left knee, rachel cataracts Past Anesthesia/Blood Transfusion Reactions: No Reported Reaction Past Psychological History: No Psychological Hx Reported Smoking Status: Never smoker Past Alcohol Use History: None Reported Past Drug Use History: None Reported - Past Family History Mother Family Medical History: No Reported History family Family Medical History: No Reported History General Exam Limitations: no limitations General appearance: alert, in no apparent distress Head exam: Present: atraumatic, normocephalic, normal inspection Eye exam: Present: normal appearance, PERRL, EOMI. Absent: scleral icterus, co njunctival injection, periorbital swelling Neck exam: Present: normal inspection Respiratory exam: Present: normal lung sounds bilaterally. Absent: respiratory distress, wheezes, rales, rhonchi, stridor Cardiovascular Exam: Present: regular rate, normal rhythm, normal heart sounds. Absent: systolic murmur, diastolic murmur, rubs, gallop, clicks GI/Abdominal exam: Present: soft, normal bowel sounds. Absent: distended, tenderness, guarding, rebound, rigid Extremities exam: Present: normal inspection, normal capillary refill. Absent: pedal edema Neurological exam: Present: alert, oriented X3, CN II-XII intact Psychiatric exam: Present: normal affect, normal mood Skin exam: Present: warm, dry, intact, normal color. Absent: rash Course Vital Signs 11/22/21 13:43 Temperature 99.4 F Pulse Rate 89 Respiratory 20 Rate Blood Pressure 117/50 O2 Sat by Pulse 96 Oximetry Medical Decision Making - Medical Decision Making This is a 70-year-old male who presents with upper respiratory symptoms. Thorough history and examination were performed. Patient is afebrile. Denies chills. Lungs are clear to auscultation bilaterally. Patient looks well. He is positive for COVID-19. Patient meets criteria for antibodies. Patient was given antibodies. He tolerated the treatment well with no complications. Patient also given albuterol treatment for his dry cough. Patient looks well, has normal vital signs, and unremarkable physical exam. He is okay to manage symptoms at home. I will send him home with Edgar Huang. Patient instructed to quarantine for 5 days. He is instructed to follow-up with his primary care provider in one to 2 days. Return parameters discussed. Patient and his verbalized understanding and are agreeable to this plan. Dr. Price is my attending. - Lab Data Result diagrams: 11/22/21 15:19 11/22/21 15: Lab Results 11/22/21 11/22/21 11/22/21 Range/Units 13:47 15:19 15:19 WBC 5.9 (3.8-10.6) k/uL RBC 4.90 (4.30-5.90) m/uL Hgb 10.0 L (13.0-17.5) gm/dL Hct 33.4 L (39.0-53.0) % MCV 68.3 L (80.0-100.0) fL MCH 20.4 L (25.0-35.0) pg MCHC 29.9 L (31.0-37.0) g/dL RDW 15.5 (11.5-15.5) % Plt Count 173 (150-450) k/uL MPV 8.0 Neutrophils % 84 % Lymphocytes % 5 % Monocytes % 8 % Eosinophils % 0 % Basophils % 1 % Neutrophils # 4.9 (1.3-7.7) k/uL Lymphocytes # 0.3 L (1.0-4.8) k/uL Monocytes # 0.5 (0-1.0) k/uL Eosinophils # 0.0 (0-0.7) k/uL Basophils # 0.0 (0-0.2) k/uL Hypochromasia Marked Microcytosis Marked Sodium 138 (137-145) mmol/L Potassium 4.5 (3.5-5.1) mmol/L Chloride 106 (98-107) mmol/L Carbon Dioxide 25 (22-30) mmol/L Anion Gap 7 mmol/L BUN 34 H (9-20) mg/dL Creatinine 1.59 H (0.66-1.25) mg/dL Est GFR (CKD-EPI)AfAm 50 (>60 ml/min/1.73 sqM) Est GFR (CKD-EPI)NonAf 44 (>60 ml/min/1.73 sqM) Glucose 278 H (74-99) mg/dL Calcium 8.7 (8.4-10.2) mg/dL Total Bilirubin 0.8 (0.2-1.3) mg/dL AST 18 (17-59) U/L ALT 14 (4-49) U/L Alkaline Phosphatase 75 (38-126) U/L C-Reactive Protein 1.1 H (<1.0) mg/dL Total Protein 6.7 (6.3-8.2) g/dL Albumin 3.9 (3.5-5.0) g/dL Coronavirus (PCR) Detected A (Not Detectd) Disposition Clinical Impression: COVID-19 Disposition: HOME SELF-CARE Condition: Good Additional Instructions: Please quarantine at home for 5 days. Take Tylenol or Motrin as needed for fever or body aches. Follow-up with primary care provider in one to 2 days. Return to the emergency department if you experience new, concerning, or worsening symptoms. Prescriptions: Benzonatate [Tessalon Perles] 100 mg PO TID PRN #15 capsule PRN Reason: Cough Is patient prescribed a controlled substance at d/c from ED?: No Referrals: Peter Aguillon MD [Primary Care Provider] - 1-2 days Time of Disposition: 16:59
[2021-11-22 17:23] VITALS: BP 145/64; PULSE 91; RESP 19; TEMP 100.6
== END 2021-11-22 17:24 | disposition home or self-care (01) ==
LOC: EC 13:28
DX: U07.1 COVID-19 (principal); E11.36 Type 2 diabetes mellitus with diabetic cataract; I11.0 Hypertensive heart disease with heart failure; I50.9 Heart failure, unspecified; I25.10 Atherosclerotic heart disease of native coronary artery without angina pectoris; Z79.4 Long term (current) use of insulin; Z79.82 Long term (current) use of aspirin; Z79.899 Other long term (current) drug therapy
CPT/HCPCS: 36415; 80053; 85025; 86140; 87635; 99283; Q0222

== ENCOUNTER 2024-04-15 15:50 | Emergency (ER) | payer MEDICARE ==
[2024-04-15 16:03] VITALS: RESP 18; TEMP 98
[2024-04-15] MEDS ORDERED: SODIUM CHLORIDE 0.9% 1,000 ML IV STA (16:40)
--- NOTE | 2024-04-15 16:47 | ED ---
Recheck HPI - General Chief Complaint: Recheck/Abnormal Lab/Rx Stated Complaint: Abn Labs Time Seen by Provider: 04/15/24 16:44 Source: patient, RN/MD, RN notes reviewed Mode of arrival: ambulatory Limitations: no limitations - History of Present Illness Initial Comments: 73-year-old male with a past medical history of diabetes, renal disease, hypertension, heart failure and coronary artery disease presenting to the ER with abnormal labs. Patient had routine laboratory studies drawn by Dr. Mayfield yesterday. Patient was notified today he had elevated potassium at 6.6. Patient denies any current headache, cough, congestion, dizziness, lightheadedness, chest pain, shortness of breath, palpitations, abdominal pain, constipation/diarrhea, urinary complaints or peripheral edema. - Related Data Home Medications Medication Instructions Recorded Confirmed INSULIN ASPART (NovoLOG) [NovoLOG 4 unit SQ [id number]-[id number] 09/12/20 08/01/21 (formulary)] INSULIN ASPART (NovoLOG) [NovoLOG 5 unit SQ 1200,1700 09/12/20 08/01/21 (formulary)] Insulin Glargine [Lantus Vial] 20 unit SQ HS 09/12/20 08/01/21 Aspirin [Adult Low Dose Aspirin EC] 81 mg PO DAILY 07/18/21 08/01/21 Atorvastatin [Lipitor] 40 mg PO DAILY 07/18/21 08/01/21 Losartan [Cozaar] 50 mg PO HS 07/18/21 08/01/21 Metoprolol Succinate (ER) [Toprol 50 mg PO DAILY 07/18/21 08/01/21 XL] Previous Rx's Medication Instructions Recorded Nitroglycerin Sl Tabs [Nitrostat] 0.4 mg SUBLINGUAL Q5M PRN #25 tab 08/01/21 Ticagrelor [Brilinta] 90 mg PO BID 30 Days #60 tab 08/01/21 Benzonatate [Tessalon Perles] 100 mg PO TID PRN #15 capsule 11/22/21 Allergies Allergy/AdvReac Type Severity Reaction Status Date / Time ragweed pollen Allergy Unknown Verified 11/22/21 13:45 Review of Systems ROS Statement: Those systems with pertinent positive or pertinent negative responses have been documented in the HPI. ROS Other: All systems not noted in ROS Statement are negative. Past Medical History Past Medical History: Coronary Artery Disease (CAD), Heart Failure, Diabetes Mellitus, Hypertension, Prostate Disorder, Renal Disease Additional Past Medical History / Comment(s): enlarged prostate, constipation, "mild anemia", migraines, "retinal issues", "occ missed heart beat", Rt BKA- wears prosthesis, had COVID 09/2020 History of Any Multi-Drug Resistant Organisms: None Reported Past Surgical History: Appendectomy, Heart Catheterization, Heart Catheterization With Stent, Orthopedic Surgery Additional Past Surgical History / Comment(s): rt bka, heart cath 07/24/21, ACL left knee, rachel cataracts Past Anesthesia/Blood Transfusion Reactions: No Reported Reaction Past Psychological History: No Psychological Hx Reported Smoking Status: Never smoker Past Alcohol Use History: None Reported Past Drug Use History: None Reported - Past Family History Mother Family Medical History: No Reported History family Family Medical History: No Reported History General Exam Limitations: no limitations General appearance: alert, in no apparent distress Respiratory exam: Present: normal lung sounds bilaterally. Absent: respiratory distress, wheezes, rales, rhonchi, stridor Cardiovascular Exam: Present: regular rate, normal rhythm, normal heart sounds. Absent: systolic murmur, diastolic murmur, rubs, gallop, clicks Neurological exam: Present: alert, oriented X3, CN II-XII intact Skin exam: Present: warm, dry, intact, normal color. Absent: rash Course Vital Signs 04/15/24 04/15/24 16:00 18:11 Temperature 98 F Pulse Rate 70 66 Respiratory 18 18 Rate Blood Pressure 123/65 167/80 O2 Sat by Pulse 99 100 Oximetry Medical Decision Making - Medical Decision Making Was pt. sent in by a medical professional or institution (, PA, AUTOMATIC GRINDER OPERATOR, urgent care, hospital, or senior living...) When possible be specific @ -Patient sent in by PCP, Dr. Mayfield for evaluation of hyperkalemia Did you speak to anyone other than the patient for history (EMS, parent, family, police, friend...)? What history was obtained from this source @ -No Did you review nursing and triage notes (agree or disagree)? Why? @ -I reviewed and agree with nursing and triage notes Were old charts reviewed (outside hosp., previous admission, EMS record, old EKG, old radiological studies, urgent care reports/EKG's, senior living records)? Report findings @ -No old charts were reviewed Differential Diagnosis (chest pain, altered mental status, abdominal pain women, abdominal pain men, vaginal bleeding, weakness, fever, dyspnea, syncope, headache, dizziness, GI bleed, back pain, seizure, CVA, palpatations, mental health, musculoskeletal)? @ -Electrolyte abnormality, STEMI, dehydration, AARON This is not meant to be all-inclusive EKG interpreted by me (3pts min.). @ -As above X-rays interpreted by me (1pt min.). @ -None done CT interpreted by me (1pt min.). @ -None done U/S interpreted by me (1pt. min.). @ -None done What testing was considered but not performed or refused? (CT, X-rays, U/S, labs)? Why? @ -None What meds were considered but not given or refused? Why? @ -None Did you discuss the management of the patient with other professionals (professionals i.e. , PA, AUTOMATIC GRINDER OPERATOR, lab, RT, psych nurse, social media campaign manager, assistant spa manager, teacher, attendance officer, rifle case repairer)? Give summary @ -No Was smoking cessation discussed for >3mins.? @ -No Was critical care preformed (if so, how long)? @ -No Were there social determinants of health that impacted care today? How? (Homelessness, low income, unemployed, alcoholism, drug addiction, transportation, low edu. Level, literacy, decrease access to med. care, long term, rehab)? @ -No Was there de-escalation of care discussed even if they declined (Discuss DNR or withdrawal of care, Hospice)? DNR status @ -No What co-morbidities impacted this encounter? (DM, HTN, Smoking, COPD, CAD, Cancer, CVA, ARF, Chemo, Hep., AIDS, mental health diagnosis, sleep apnea, morbid obesity)? @ -None Was patient admitted / discharged? Hospital course, mention meds given and route, prescriptions, significant lab abnormalities, going to OR and other pertinent info. @ -Discharge. 73-year-old male presented to ER for evaluation of hyperkalemia. Patient sent by Dr. Mayfield as patient had routine laboratory studies drawn yesterday and was found to have a potassium of 6.6. History and physical exam completed. Vitals within normal limits. Patient in no signs of acute distress with no acute complaints. Exam benign. Laboratory studies will be obtained, patient is agreeable to this. Potassium 4.5. Microcytic hypochromic anemia with a hemoglobin of 10.4 which appears to be chronic in nature. BUN of 39, creatinine 1.53 with a GFR 44 which also appears to be chronic in nature. EKG showing NSR with a first-degree AV block no acute evidence of infarct or ischemia. No T wave abnormalities. AV block is similar to 2021. Patient received 500 mL of IV fluids. As potassium is normal patient is stable for discharge at this time. Strict return parameters discussed. Advise close follow-up with PCP in the next 1 to 2 days. Patient discharged in stable condition. Patient verbally expressed understanding agree with care plan. Case discussed with the attending, Dr. Vallejo. Undiagnosed new problem with uncertain prognosis? @ -No Drug Therapy requiring intensive monitoring for toxicity (Heparin, Nitro, Insulin, Cardizem)? @ -No Were any procedures done? @ -No Diagnosis/symptom? @ -Encounter for laboratory studies Acute, or Chronic, or Acute on Chronic? @ -Acute Uncomplicated (without systemic symptoms) or Complicated (systemic symptoms)? @ -Uncomplicated Side effects of treatment? @ -No Exacerbation, Progression, or Severe Exacerbation? @ -No Poses a threat to life or bodily function? How? (Chest pain, USA, MS, pneumonia, PE, COPD, DKA, ARF, appy, cholecystitis, CVA, Diverticulitis, Homicidal, Suicidal, threat to staff... and all critical care pts) @ -Possibly, electrolyte abnormalities including hyperkalemia can lead to lethal cardiac arrhythmias. - Lab Data Result diagrams: 04/15/24 16:48 04/15/24 16:48 Lab Results 04/15/24 04/15/24 Range/Units 16:48 16:48 WBC 5.0 (3.8-10.6) k/uL RBC 5.01 (4.30-5.90) m/uL Hgb 10.4 L (13.0-17.5) gm/dL Hct 33.8 L (39.0-53.0) % MCV 67.5 L (80.0-100.0) fL MCH 20.8 L (25.0-35.0) pg MCHC 30.8 L (31.0-37.0) g/dL RDW 15.6 H (11.5-15.5) % Plt Count 201 (150-450) k/uL MPV 6.6 Neutrophils % 66 % Lymphocytes % 22 % Monocytes % 9 % Eosinophils % 0 % Basophils % 0 % Neutrophils # 3.3 (1.3-7.7) k/uL Lymphocytes # 1.1 (1.0-4.8) k/uL Monocytes # 0.5 (0-1.0) k/uL Eosinophils # 0.0 (0-0.7) k/uL Basophils # 0.0 (0-0.2) k/uL Hypochromasia Marked Microcytosis Marked Sodium 139 (137-145) mmol/L Potassium 4.5 (3.5-5.1) mmol/L Chloride 109 H (98-107) mmol/L Carbon Dioxide 24 (22-30) mmol/L Anion Gap 6 mmol/L BUN 39 H (9-20) mg/dL Creatinine 1.53 H (0.66-1.25) mg/dL Est GFR (CKD-EPI)AfAm 51 (>60 ml/min/1.73 sqM) Est GFR (CKD-EPI)NonAf 44 (>60 ml/min/1.73 sqM) Glucose 189 H (74-99) mg/dL Calcium 9.3 (8.4-10.2) mg/dL Total Bilirubin 0.9 (0.2-1.3) mg/dL AST 19 (17-59) U/L ALT 13 (4-49) U/L Alkaline Phosphatase 90 (38-126) U/L Total Protein 6.5 (6.3-8.2) g/dL Albumin 3.8 (3.5-5.0) g/dL - EKG Data -: EKG Interpreted by Me EKG Comments: EKG taken at 16: 12 showing a sinus rhythm with a first-degree AV block. No ST segment depressions or elevations. No T wave abnormalities. Ventricular rate 66, WI interval 220, QRS duration 105, QT/QTc 409/423. Disposition Clinical Impression: Encounter for laboratory test Disposition: HOME SELF-CARE Condition: Stable Instructions (If sedation given, give patient instructions): Hyperkalemia (ED) Additional Instructions: Please follow-up with PCP in the next 1 to 2 days. Return to the ER for any new or worsening concerns. Is patient prescribed a controlled substance at d/c from ED?: No Referrals: Peter Aguillon DO [Primary Care Provider] - 1-2 days Time of Disposition: 17:39
[2024-04-15] MEDS: SODIUM CHLORIDE 0.9% 500 ML 500 ML IV STA (17:00)
[2024-04-15 17:15] LABS: Basophils % (A) 0 %; Eosinophils % (A) 0 %; HCT 33.8 % (39.0-53.0); HGB 10.4 gm/dL (13.0-17.5); Hypochromasia Marked; Lymphocytes # (A) 1.1 k/uL (1.0-4.8); Lymphocytes % (A) 22 %; MCH 20.8 pg (25.0-35.0); MCHC 30.8 g/dL (31.0-37.0); MCV 67.5 fL (80.0-100.0); Mean Platelet Volume 6.6; Microcytosis Marked; Monocytes # (A) 0.5 k/uL (0-1.0); Monocytes % (A) 9 %; Neutrophils # (A) 3.3 k/uL (1.3-7.7); Neutrophils % (A) 66 %; Platelet Count 201 k/uL (150-450); RBC 5.01 m/uL (4.30-5.90); RDW 15.6 % (11.5-15.5)
[2024-04-15 17:29] LABS: ALT 13 U/L (4-49); AST 19 U/L (17-59); African American GFR (CKD) 51 (>60 ml/min/1.73 sqM); Albumin 3.8 g/dL (3.5-5.0); Alkaline Phosphatase 90 U/L (38-126); Anion Gap 6 mmol/L; Blood Urea Nitrogen 39 mg/dL (9-20); Calcium 9.3 mg/dL (8.4-10.2); Carbon Dioxide 24 mmol/L (22-30); Chloride 109 mmol/L (98-107); Glucose 189 mg/dL (74-99); Non-African American GFR(CKD) 44 (>60 ml/min/1.73 sqM); Potassium 4.5 mmol/L (3.5-5.1); Sodium 139 mmol/L (137-145); Total Bilirubin 0.9 mg/dL (0.2-1.3); Total Protein 6.5 g/dL (6.3-8.2)
[2024-04-15 20:05] VITALS: BP 167/80; PULSE 66
== END 2024-04-15 18:11 | disposition home or self-care (01) ==
LOC: EC 15:50
CPT/HCPCS: 36415; 80053; 85025; 93005; 96360; 99283